=== PATIENT | female | born 1930 | race Caucasian/White ===

== ENCOUNTER 2016-06-24 12:34 | Emergency (ER) | payer MEDICARE ==
[2016-06-24 13:50] LABS: BASO % 0.2 % (0-6); EOS % 0.7 % (0-6); GRAN % 68.2 % (47-80); HEMATOCRIT 37.5 % (35.0-47.0); HEMOGLOBIN 12.1 gm/dl (11.6-16.0); MEAN CELL VOLUME 91.5 fl (81-97); MEAN CORPUSCULAR HEMOGLOBIN 29.5 pg (27-33); MEAN CORPUSCULAR HGB CONC 32.3 g/dl (32-36); MEAN PLATELET VOLUME 11.4 fl (7.4-10.4); MONO % 9.9 % (0-9); PLATELET COUNT 125 K/uL (130-400); RED CELL DISTRIBUTION WIDTH 14.3 % (11.5-14.5); WHITE BLOOD COUNT W/O DIFF 5.4 K/uL (4.2-12.2)
[2016-06-24 14:02] LABS: ANION GAP 15.5 (7-16); BLOOD UREA NITROGEN 15 mg/dL (7-17); CARBON DIOXIDE 28.5 mmol/L (22-30); CREATININE 0.7 mg/dL (0.52-1.04); EST GLOMERULAR FILTRATION RATE > 60 ml/min; GLUCOSE,RANDOM 124 mg/dL (70-110)
[2016-06-24 16:01] LABS: URINE APPEARANCE SL CLOUDY; URINE BILIRUBIN NEGATIVE (NEGATIVE); URINE BLOOD NEGATIVE (NEGATIVE); URINE COLOR YELLOW; URINE GLUCOSE (UA) NEGATIVE (NEGATIVE); URINE KETONE NEGATIVE (NEGATIVE); URINE LEUKOCYTE ESTERASE MODERATE (NEGATIVE); URINE NITRITE NEGATIVE (NEGATIVE); URINE PROTEIN NEGATIVE (NEGATIVE); URINE UROBILINOGEN 0.2 E.U./dL (0.20 - 1.00)
[2016-06-24 16:04] LABS: URINE BACTERIA 2+; URINE RBC 0 - 2 (NONE SEEN); URINE TRANSITIONAL EPI CELLS 0 - 2 /hpf; URINE WBC 21 - 35 (0-2/hpf)
--- NOTE | 2016-06-24 16:47 | Emergency Department Record ---
History of Present Illness - General Chief Complaint: Hallucinations Stated Complaint: NOT FEELING WELL Time Seen by Provider: 06/24/16 14:01 Source: Patient, Family Mode of Arrival: Ambulatory Limitations: No limitations Travel/Exposure to [place] Within 21 Days of Symptoms: No - History of Present Illness Initial Comments: pt has been hallucinating. she does this when she has a uti in the past. Complaint: Altered mental status Onset/Timin -: Days(s) Associated Psychiatric Symptoms: Visual hallucinations Quality: Intermittent Associated Symptoms: Nausea Treatments Prior to Arrival: None - Randal Coma Scale Eye Response: (4) Open spontaneously Motor Response: (6) Obeys commands Verbal Response: (4) Confused conversation Randal Total: 14 - Related Data Home Medications Medication Instructions Recorded Confirmed Last Taken Metformin HCl [Glucophage Ir] 500 mg PO BID 12/14/13 06/24/16 1 Day Ago Memantine HCl [Namenda] 5 mg PO BID 09/29/15 06/24/16 1 Day Ago Lorazepam [Ativan] 0.5 mg PO Q8H 12/03/15 06/24/16 1 Day Ago Acetaminophen with Codeine 1 tab PO Q4H PRN 03/18/16 06/24/16 1 Day Ago [Tylenol #3] Clonidine [Catapres-Tts 1] 1 each TD WEEKLY 03/18/16 06/24/16 1 Day Ago Meloxicam [Mobic] 15 mg PO DAILY 03/18/16 06/24/16 1 Day Ago Isosorbide Mononitrate [Imdur] 30 mg PO DAILY 06/24/16 06/24/16 1 Day Ago Omeprazole [Omeprazole] 10 mg PO DAILY 06/24/16 06/24/16 1 Day Ago Simvastatin [Simvastatin] 40 mg PO DAILY 06/24/16 06/24/16 1 Day Ago Previous Rx's Medication Instructions Recorded Lisinopril [Zestril] 20 mg PO DAILY #30 tab 12/04/15 Ciprofloxacin HCl [Cipro] 500 mg PO Q12HR #14 tablet 06/24/16 Allergies Allergy/AdvReac Type Severity Reaction Status Date / Time No Known Drug Allergies Allergy Verified 06/24/16 12:49 Review of Systems Reviewed: No additional complaints except as noted below Constitutional: Reports: As per HPI. Denies: Chills, Fever, Malaise, Night sweats, Weakness, Weight change Eyes: Reports: As per HPI. Denies: Eye discharge, Eye pain, Photophobia, Vision change ENT: Reports: As per HPI. Denies: Congestion, Dental pain, Ear pain, Epistaxis , Hearing loss, Throat pain Respiratory: Reports: As per HPI. Denies: Cough, Dyspnea, Hemoptysis, Stridor, Wheezes Cardiovascular: Reports: As per HPI. Denies: Arrhythmia, Chest pain, Dyspnea on exertion, Edema, Murmurs, Orthopnea, Palpitations, Paroxysmal nocturnal dyspnea, Rheumatic Fever, Syncope Endocrine: Reports: As per HPI. Denies: Fatigue, Heat or cold intolerance, Polydipsia, Polyuria Gastrointestinal: Reports: As per HPI. Denies: Abdominal pain, Constipation, Diarrhea, Hematemesis, Hematochezia, Melena, Nausea, Vomiting Genitourinary: Reports: As per HPI. Denies: Abnormal menses, Discharge, Dyspareunia, Dysuria, Frequency, Hematuria, Incontinence, Retention, Urgency Musculoskeletal: Reports: As per HPI. Denies: Arthralgia, Back pain, Gout, Joint swelling, Myalgia, Neck pain Skin: Reports: As per HPI. Denies: Bruising, Change in color, Change in hair/ nails, Lesions, Pruritus, Rash Neurological: Reports: As per HPI. Denies: Abnormal gait, Confusion, Headache, Numbness, Paresthesias, Seizure, Tingling, Tremors, Vertigo, Weakness Psychiatric: Reports: As per HPI. Denies: Anxiety, Auditory hallucinations, Depression, Homicidal thoughts, Suicidal thoughts, Visual hallucinations Hematological/Lymphatic: Reports: As per HPI. Denies: Anemia, Blood Clots, Easy bleeding, Easy bruising, Swollen glands Past Medical History - SOCIAL HISTORY Smoking Status: Former smoker Alcohol Use: None Drug Use: None - RESPIRATORY Hx Respiratory Disorders: No - CARDIOVASCULAR Hx Cardio Disorders: Yes Hx Hypertension: Yes Comment:: HYPERLIPIDEMIA - NEURO Hx Neuro Disorders: Yes Hx Dementia: Yes - GI Hx GI Disorders: Yes Hx GI Bleed: Yes - Hx Genitourinary Disorders: Yes Hx UTI: Yes - ENDOCRINE Hx Endocrine Disorders: Yes Hx Diabetes: Yes (NIDDM) Hx Thyroid Disease: No - MUSCULOSKELETAL Hx Musculoskeletal Disorders: Yes Hx Arthritis: Yes - PSYCH Hx Psych Problems: Yes Hx Anxiety: Yes - HEMATOLOGY/ONCOLOGY Hx Hematology/Oncology Disorders: No Family Medical History Any Significant Family History?: Yes Hx Cancer: Mother, Brother/Sister Physical Exam - General General Appearance: Alert, Cooperative, Mild distress - Head Head exam: Normal inspection - Eye Eye exam: Normal appearance, PERRL, EOMI Pupils: Normal accommodation - ENT ENT exam: Normal exam, Mucous membranes moist, Normal external ear exam, Normal orophraynx, TM's normal bilaterally Ear exam: Normal external inspection. negative: External canal tenderness Nasal Exam: Normal inspection. negative: Discharge, Sinus tenderness Mouth exam: Normal external inspection, Tongue normal Teeth exam: Normal inspection. negative: Dental caries Throat exam: Normal inspection. negative: Tonsillar erythema, Tonsillar exudate - Neck Neck exam: Normal inspection, Full ROM. negative: Tenderness - Respiratory Respiratory exam: Normal lung sounds bilaterally. negative: Respiratory distress - Cardiovascular Cardiovascular Exam: Regular rate, Normal rhythm, Normal heart sounds - GI/Abdominal GI/Abdominal exam: Soft, Normal bowel sounds. negative: Tenderness - Rectal Rectal exam: Deferred - exam: Deferred - Extremities Extremities exam: Normal inspection, Full ROM, Normal capillary refill. negative: Tenderness - Back Back exam: Reports: Normal inspection, Full ROM. Denies: Muscle spasm, Rash noted, Tenderness - Neurological Neurological exam: Alert, CN II-XII intact, Normal gait, Other (active hallucinating at times) - Psychiatric Psychiatric exam: Normal affect, Normal mood - Skin Skin exam: Dry, Intact, Normal color, Warm Course Vital Signs 06/24/16 06/24/16 06/24/16 12:58 14:45 15:59 Temperature 97.9 F Pulse Rate 77 Pulse Rate [ 74 95 H Pulse Ox Probe] Respiratory 15 15 15 Rate Blood Pressure 164/103 Blood Pressure 135/75 168/70 [Right Arm] Pulse Ox 94 L 95 Medical Decision Making - Lab Data Result diagrams: 06/24/16 13:20 06/24/16 13:20 Lab Results 06/24/16 06/24/16 06/24/16 Range/Units 13:20 13:20 15:37 WBC 5.4 (4.2-12.2) K/uL RBC 4.10 (3.80-5.40) M/uL Hgb 12.1 (11.6-16.0) gm/dl Hct 37.5 (35.0-47.0) % MCV 91.5 (81-97) fl MCH 29.5 (27-33) pg MCHC 32.3 (32-36) g/dl RDW 14.3 (11.5-14.5) % Plt Count 125 L (130-400) K/uL MPV 11.4 H (7.4-10.4) fl Gran % 68.2 (47-80) % Lymphocytes % 21.0 (16-45) % Monocytes % 9.9 H (0-9) % Eosinophils % 0.7 (0-6) % Basophils % 0.2 (0-6) % Sodium 141 (136-145) mmol/L Potassium 3.9 (3.5-5.1) mmol/L Chloride 97 L (98-107) mmol/L Carbon Dioxide 28.5 (22-30) mmol/L Anion Gap 15.5 (7-16) BUN 15 (7-17) mg/dL Creatinine 0.7 (0.52-1.04) mg/dL Estimated GFR > 60 ml/min Random Glucose 124 H (70-110) mg/dL Calcium 9.7 (8.5-10.1) mg/dL Urine Color Yellow Urine Appearance Sl cloudy Urine pH 6.5 (5.0-8.0) Ur Specific [place] 1.010 (1.002-1.030) Urine Protein Negative (NEGATIVE) Urine Glucose (UA) Negative (NEGATIVE) Urine Ketones Negative (NEGATIVE) Urine Blood Negative (NEGATIVE) Urine Nitrite Negative (NEGATIVE) Urine Bilirubin Negative (NEGATIVE) Urine Urobilinogen 0.2 (0.20 - 1.00) E.U./dL Ur Leukocyte Esterase Moderate H (NEGATIVE) Urine RBC 0 - 2 (NONE SEEN) Urine WBC 21 - 35 (0-2/hpf) U Non-Squamous Epi Cells 7 - 10 /hpf Ur Transition Epith Cell 0 - 2 /hpf Urine Bacteria 2+ Disposition Disposition: Discharge Clinical Impression: Hallucinations UTI (urinary tract infection) Qualifiers: Urinary tract infection type: acute cystitis Hematuria presence: without hematuria Qualified Code(s): N30.00 - Acute cystitis without hematuria Disposition: Home, Self-Care Condition: (1) Good Instructions: Urinary Tract Infection in Women (ED) Additional Instructions: follow up with family doctor on sunday. return sooner if worse. Prescriptions: Ciprofloxacin HCl [Cipro] 500 mg PO Q12HR #14 tablet Forms: Patient Portal Access
[2016-06-24] MEDS ORDERED: CIPROFLOXACIN HCL 500 MG TABLET PO ONE (16:50)
== END 2016-06-24 17:07 | disposition home or self-care (01) ==
LOC: ER 12:34
DX: N30.00 Acute cystitis without hematuria (principal); R44.1 Visual hallucinations; E11.9 Type 2 diabetes mellitus without complications; I10 Essential (primary) hypertension; Z79.84 Long term (current) use of oral hypoglycemic drugs
CPT/HCPCS: 80048; 81001; 85025; 99283

== ENCOUNTER 2016-08-26 05:30 | Emergency (ER) | payer MEDICARE ==
--- NOTE | 2016-08-26 05:51 | Emergency Department Record ---
History of Present Illness - General Chief Complaint: Fall Injury Stated Complaint: fall Time Seen by Provider: 08/26/16 05:43 Source: Patient, Family Mode of Arrival: Wheelchair - History of Present Illness Initial Comments: The patient's family caregiver states she was getting up to the bedside commode when she fell off to the side, hitting her head on the metal furniture next to her. She complains of a large lump on her left posterior scalp, but has no other complaints. She has been unable to urinate more than a few drops the past day or so. Her friend began to give her more fluids but she still has not urinated normally. She denies f,c,n,v,d,cp, travon, ap, or other problems. PMH includes dementia, UTI, hypertension. MD Complaint: Fall Onset/Timin -: Hour(s) Fall From: Chair When Fall Occurred: 1 hour AUT[employer] APPR[employer]IS[employer] Fall Witnessed: No Place Fall Occurred: Home Loss of Consciousness: None Prolonged Down Time?: No Symptoms Prior to Fall: None Location: Head Severity: Mild Severity scale (1-10): 2 Quality: Aching Associated Symptoms: Denies - Randal Coma Scale Eye Response: (4) Open spontaneously Motor Response: (6) Obeys commands Verbal Response: (5) Oriented [place] Total: 15 - Related Data Home Medications Medication Instructions Recorded Confirmed Last Taken Metformin HCl [Glucophage Ir] 500 mg PO BID 12/14/13 08/26/16 08/25/16 Memantine HCl [Namenda] 5 mg PO BID 09/29/15 08/26/16 08/25/16 Lorazepam [Ativan] 0.5 mg PO Q8H 12/03/15 08/26/16 08/25/16 Acetaminophen with Codeine 1 tab PO Q4H PRN 03/18/16 08/26/16 08/25/16 [Tylenol #3] Clonidine [Catapres-Tts 1] 1 each TD WEEKLY 03/18/16 08/26/16 08/25/16 Meloxicam [Mobic] 15 mg PO DAILY 03/18/16 08/26/16 08/25/16 Isosorbide Mononitrate [Imdur] 30 mg PO DAILY 06/24/16 08/26/16 08/25/16 Omeprazole [Omeprazole] 10 mg PO DAILY 06/24/16 08/26/16 08/25/16 Simvastatin [Simvastatin] 40 mg PO DAILY 06/24/16 08/26/16 08/25/16 Previous Rx's Medication Instructions Recorded Lisinopril [Zestril] 20 mg PO DAILY #30 tab 12/04/15 Ciprofloxacin HCl [Cipro] 500 mg PO Q12HR #14 tablet 06/24/16 Allergies Allergy/AdvReac Type Severity Reaction Status Date / Time No Known Drug Allergies Allergy Verified 08/26/16 05:32 Travel Screening - Travel/Exposure Within Last 30 Days Have you traveled within the last 30 days?: No - Travel/Exposure Within Last Year Have you traveled outside the [place] in the last year?: No - Additonal Travel Details Have you been exposed to anyone with a communicable illness?: No - Travel Symptoms Symptom Screening: None Review of Systems Reviewed: No additional complaints except as noted below Constitutional: Reports: As per HPI. Denies: Chills, Fever, Malaise, Night sweats, Weakness, Weight change Eyes: Reports: As per HPI. Denies: Eye discharge, Eye pain, Photophobia, Vision change ENT: Reports: As per HPI. Denies: Congestion, Dental pain, Ear pain, Epistaxis , Hearing loss, Throat pain Respiratory: Reports: As per HPI. Denies: Cough, Dyspnea, Hemoptysis, Stridor, Wheezes Cardiovascular: Reports: As per HPI. Denies: Arrhythmia, Chest pain, Dyspnea on exertion, Edema, Murmurs, Orthopnea, Palpitations, Paroxysmal nocturnal dyspnea, Rheumatic Fever, Syncope Endocrine: Reports: As per HPI. Denies: Fatigue, Heat or cold intolerance, Polydipsia, Polyuria Gastrointestinal: Reports: As per HPI. Denies: Abdominal pain, Constipation, Diarrhea, Hematemesis, Hematochezia, Melena, Nausea, Vomiting Genitourinary: Reports: As per HPI. Denies: Abnormal menses, Discharge, Dyspareunia, Dysuria, Frequency, Hematuria, Incontinence, Retention, Urgency Musculoskeletal: Reports: As per HPI. Denies: Arthralgia, Back pain, Gout, Joint swelling, Myalgia, Neck pain Skin: Reports: As per HPI. Denies: Bruising, Change in color, Change in hair/ nails, Lesions, Pruritus, Rash Neurological: Reports: As per HPI. Denies: Abnormal gait, Confusion, Headache, Numbness, Paresthesias, Seizure, Tingling, Tremors, Vertigo, Weakness Psychiatric: Reports: As per HPI. Denies: Anxiety, Auditory hallucinations, Depression, Homicidal thoughts, Suicidal thoughts, Visual hallucinations Hematological/Lymphatic: Reports: As per HPI. Denies: Anemia, Blood Clots, Easy bleeding, Easy bruising, Swollen glands Past Medical History - SOCIAL HISTORY Smoking Status: Former smoker Alcohol Use: None Drug Use: None - RESPIRATORY Hx Respiratory Disorders: No - CARDIOVASCULAR Hx Cardio Disorders: Yes Hx Hypertension: Yes Comment:: HYPERLIPIDEMIA - NEURO Hx Neuro Disorders: Yes Hx Dementia: Yes - GI Hx GI Disorders: Yes Hx GI Bleed: Yes - Hx Genitourinary Disorders: Yes Hx UTI: Yes - ENDOCRINE Hx Endocrine Disorders: Yes Hx Diabetes: Yes (NIDDM) Hx Thyroid Disease: No - MUSCULOSKELETAL Hx Musculoskeletal Disorders: Yes Hx Arthritis: Yes - PSYCH Hx Psych Problems: Yes Hx Anxiety: Yes - HEMATOLOGY/ONCOLOGY Hx Hematology/Oncology Disorders: No Family Medical History Any Significant Family History?: No Hx Cancer: Mother, Brother/Sister Physical Exam - General General Appearance: Alert, Cooperative, No acute distress - Head Head exam: Normal inspection, Other (large hematoma to left posterior scalp, no bleeding seen) Head exam detail: Contusion (scalp as mentioned) - Eye Eye exam: Normal appearance, PERRL, EOMI Pupils: Normal accommodation - ENT ENT exam: Normal exam, Mucous membranes moist, Normal external ear exam, Normal orophraynx, TM's normal bilaterally Ear exam: Normal external inspection. negative: External canal tenderness Nasal Exam: Normal inspection. negative: Discharge, Sinus tenderness Mouth exam: Normal external inspection, Tongue normal Teeth exam: Normal inspection, Other (edentulous). negative: Dental caries Throat exam: Normal inspection. negative: Tonsillar erythema, Tonsillar exudate - Neck Neck exam: Normal inspection, Full ROM. negative: Lymphadenopathy, Tenderness - Respiratory Respiratory exam: Normal lung sounds bilaterally. negative: Respiratory distress - Cardiovascular Cardiovascular Exam: Regular rate, Normal rhythm, Normal heart sounds - GI/Abdominal GI/Abdominal exam: Soft, Normal bowel sounds. negative: Tenderness - Rectal Rectal exam: Deferred - exam: Deferred - Extremities Extremities exam: Normal inspection, Full ROM, Normal capillary refill, Other ( no rib, chest back, pelvis, or extremity tenderness on palpation). negative: Tenderness - Back Back exam: Reports: Normal inspection, Full ROM. Denies: Muscle spasm, Rash noted, Tenderness - Neurological Neurological exam: Alert, Normal gait, Oriented X3, Reflexes normal - Psychiatric Psychiatric exam: Normal affect, Normal mood - Skin Skin exam: Dry, Intact, Normal color, Warm Course Vital Signs 08/26/16 05:32 Temperature 97.7 F Pulse Rate 70 Respiratory 16 Rate Blood Pressure 222/104 Pulse Ox 98 - Reevaluation(s) Reevaluation #1: Awaiting CT results and urine studies. Care turned over to day shift physician 7 a.m. 08/26/16 06:45 Reevaluation #2: Non-contrast head CT showed no acute intra-cranial abnormalities and mild left posterior scalp edema. CT of the Cervical spine showed No acute fracture with degenerative disc disease. 08/26/16 06:51 Medical Decision Making - Management Options MDM Management: No Additional Work-up Planned - Data Complexity MDM Data: Labs Ordered and/or Reviewed, X-Ray Ordered and/or Reviewed ( Noncontrast Head and Cervical Spine CT's all without acute changes.) - Lab Data Result diagrams: 08/26/16 05:59 08/26/16 05:59 Disposition Disposition: Discharge Clinical Impression: Head contusion Qualifiers: Encounter type: initial encounter Contusion of head detail: scalp Qualified Code(s): S00.03XA - Contusion of scalp, initial encounter Fall Qualifiers: Encounter type: initial encounter Qualified Code(s): W19.XXXA - Unspecified fall, initial encounter Dementia Qualifiers: Dementia type: unspecified type Dementia behavioral disturbance: without behavioral disturbance Qualified Code(s): F03.90 - Unspecified dementia without behavioral disturbance Disposition: Home, Self-Care Condition: (1) Good Instructions: Fall Prevention for Older Adults (ED) Additional Instructions: Home with caregivers. Continue present medications. Ice to contusion. Tylenol as directed as needed for pain. Follow up with PCP for recheck as needed. Close assistance when patient is attempting ambulation. Forms: Patient Portal Access
[2016-08-26] MEDS ORDERED: 0.9 % SODIUM CHLORIDE 500ML 500 ML IV SCH (06:00)
[2016-08-26 06:08] LABS: BASO % 0.7 % (0-6); EOS % 3.1 % (0-6); HEMATOCRIT 35.2 % (35.0-47.0); HEMOGLOBIN 10.8 gm/dl (11.6-16.0); LYMPH % 43.2 % (16-45); MEAN CELL VOLUME 94.1 fl (81-97); MEAN CORPUSCULAR HGB CONC 30.7 g/dl (32-36); MEAN PLATELET VOLUME 10.9 fl (7.4-10.4); PLATELET COUNT 124 K/uL (130-400); RED BLOOD COUNT 3.74 M/uL (3.80-5.40); RED CELL DISTRIBUTION WIDTH 13.7 % (11.5-14.5); WHITE BLOOD COUNT W/O DIFF 4.3 K/uL (4.2-12.2)
[2016-08-26 06:12] LABS: MEAN CORPUSCULAR HEMOGLOBIN 28.8 pg (27-33)
[2016-08-26 06:21] LABS: INR 0.95; PARTIAL THROMBOPLASTIN TIME 24.1 SECONDS (24.5-39.1); PROTHROMBIN TIME (PATIENT) 10.7 SECONDS (9.5-12.1)
[2016-08-26 06:22] LABS: AMMONIA < 8.7 umol/L (9-30)
[2016-08-26 06:23] LABS: ALBUMIN 3.9 gm/dL (3.5-5.0); BLOOD UREA NITROGEN 16 mg/dL (7-17); CREATININE 0.7 mg/dL (0.52-1.04); EST GLOMERULAR FILTRATION RATE > 60 ml/min; GLUCOSE,RANDOM 105 mg/dL (70-110); TOTAL PROTEIN 6.4 gm/dL (6.3-8.2)
[2016-08-26 06:24] LABS: ALKALINE PHOSPHATASE 69 U/L (38-126); ALT/SGPT 20 U/L (9-52); AST/SGOT 16 U/L (14-36)
[2016-08-26 06:50] LABS: URINE APPEARANCE CLEAR; URINE BILIRUBIN NEGATIVE (NEGATIVE); URINE BLOOD NEGATIVE (NEGATIVE); URINE COLOR YELLOW; URINE GLUCOSE (UA) NEGATIVE (NEGATIVE); URINE KETONE NEGATIVE (NEGATIVE); URINE LEUKOCYTE ESTERASE NEGATIVE (NEGATIVE); URINE NITRITE NEGATIVE (NEGATIVE); URINE PROTEIN NEGATIVE (NEGATIVE); URINE UROBILINOGEN 0.2 E.U./dL (0.20 - 1.00)
[2016-08-26 06:55] LABS: AMPHETAMINE SCREEN URINE NOT DETECTED; BARBITURATE SCREEN URINE NOT DETECTED; BENZODIAZEPINE SCREEN URINE DETECTED; COCAINE SCREEN URINE NOT DETECTED; METHADONE SCREEN URINE NOT DETECTED; METHAMPHETAMINE SCREEN NOT DETECTED; OPIATE SCREEN URINE NOT DETECTED; OXYCODONE SCREEN URINE NOT DETECTED; PHENCYCLIDINE SCREEN URINE NOT DETECTED; PROPOXYPHENE SCREEN URINE NOT DETECTED; THC SCREEN URINE NOT DETECTED; TRICYCLIC ANTIDEPRESSANT SCRN NOT DETECTED
--- NOTE | 2016-08-30 09:34 | RADIOLOGY REPORT ---
EXAM: CHEST, TWO VIEWS HISTORY: FALL, WEAKNESS. TECHNIQUE: Two views of the chest were obtained. Comparison: Chest x-ray 03/18/16. FINDINGS: Compromised study due to patient rotation. The lungs are clear. The cardiac silhouette and diaphragm are unremarkable. Moderate dextroconvex scoliosis of the thoracic spine. Diffuse osteopenia. No displaced rib fracture. IMPRESSION: NO ACUTE INTRATHORACIC PROCESS. JOB NUMBER: [id number] [facility]
--- NOTE | 2016-08-30 09:47 | CT SCAN REPORT ---
EXAM: HEAD CT WITHOUT CONTRAST HISTORY: FALL, BLUNT TRAUMA TO HEAD, NO LOSS OF CONSCIOUSNESS. TECHNIQUE: Noncontrast head CT was obtained. Comparison: Head CT 12/03/15. Encounter: Initial. Hand dominance: Right. FINDINGS: Mild generalized atrophy of the brain. No acute intracranial hemorrhage, mass effect, or midline shift. Moderate diffuse attenuation in the periventricular white matter of the cerebral hemispheres. No CT evidence of acute infarct. The ventricles, basal cisterns and sulci are within normal limits. The osseous structures are unremarkable. Bilateral lens implants. Soft tissue swelling left parietal occipital scalp. IMPRESSION: 1. NO ACUTE INTRACRANIAL PROCESS. 2. LEFT PARIETAL OCCIPITAL SCALP CONTUSION. 3. MODERATE CHRONIC SMALL VESSEL ISCHEMIC CHANGE. JOB NUMBER: [id number] [facility]
--- NOTE | 2016-08-30 09:52 | CT SCAN REPORT ---
EXAM: CERVICAL SPINE CT WITH TWO DIMENSIONAL REFORMATS HISTORY: FALL, HIT POSTERIOR HEAD, NECK PAIN. TECHNIQUE: Contiguous axial images from the skull base to the T1 level were obtained without contrast. Sagittal and coronal two dimensional reformatted images were obtained for better anatomic delineation. Comparison: None. FINDINGS: The C1-C2 articulation appears appropriate and the odontoid process is intact. No fracture. 2 mm of anterolisthesis of C5 upon C6 due to severe facet arthropathy. Mild to moderate degenerative disk disease at C5-C6 and C6- C7. Minimal disk disease at the remaining levels. No narrowing of the osseous central canal. Facet and uncovertebral joint hypertrophy at several levels resulting in varying degrees of neural foraminal stenosis most pronounced at C2- C3 on the left. The soft tissues of the cervical region are unremarkable. The lung apices are clear. IMPRESSION: 1. MULTILEVEL DEGENERATIVE CHANGE OF THE CERVICAL SPINE. NO ACUTE FRACTURE IDENTIFIED. 2. 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 3. 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 [facility]: [id number] [facility]
== END 2016-08-26 06:59 | disposition home or self-care (01) ==
LOC: ER 05:30
DX: S00.03XA Contusion of scalp, initial encounter (principal); M50.30 Other cervical disc degeneration, unspecified cervical region; R34 Anuria and oliguria; E11.9 Type 2 diabetes mellitus without complications; I10 Essential (primary) hypertension; F03.90 Unspecified dementia, unspecified severity, without behavioral disturbance, psychotic disturbance, mood disturbance, and anxiety; Y92.003 Bedroom of unspecified non-institutional (private) residence as the place of occurrence of the external cause; Z87.891 Personal history of nicotine dependence; Z79.899 Other long term (current) drug therapy
CPT/HCPCS: 70450; 71020; 72125; 80048; 80076; 80305; 81003; 82140; 85025; 85610; 85730; 99284; J7040

== ENCOUNTER 2016-11-28 16:46 | Inpatient (IN) | payer MEDICARE ==
--- NOTE | 2016-11-28 17:35 | Emergency Department Record ---
History of Present Illness - General Source: Patient, Family Mode of Arrival: Wheelchair Limitations: Other (dementia) - History of Present Illness Initial Comments: 86 yo female presents with family due to increasing confusion for a few days. She has a long history of progressive dementia. She is normally confused at her baseline. The last few days she has woken up in the night time and will talk with the family asking for relatives that are not present. Intermittently she will have conversations about family that not around or . No falls or injury. No slurred speech or changes in physical abilities. No pain that is new (she has arthritis). NO new weakness. No vision changes. She lives with her brother and sister in law. They are her caretakers MD Complaint: Confusion -: Unknown Consistency: Intermittent Associated Symptoms: Other - [place] Coma Scale Eye Response: (4) Open spontaneously Motor Response: (6) Obeys commands Verbal Response: (4) Confused conversation [place] Total: 14 <SARA MARQUEZ - Last Filed: 11/28/16 18:45> <STEPHON SNELL - Last Filed: 11/28/16 19:59> - General Chief Complaint: Confusion Stated Complaint: CONFUSION Time Seen by Provider: 11/28/16 17:33 - Related Data Home Medications Medication Instructions Recorded Confirmed Last Taken Metformin HCl [Glucophage Ir] 500 mg PO BID 12/14/13 11/28/16 11/28/16 Memantine HCl [Namenda] 5 mg PO BID 09/29/15 11/28/16 11/28/16 Lorazepam [Ativan] 0.5 mg PO Q8H 12/03/15 11/28/16 11/28/16 Acetaminop W/ Codeine 300/30Mg 1 tab PO Q4H PRN 03/18/16 11/28/16 11/28/16 [Tylenol #3] Clonidine [Catapres-Tts 1] 1 each TD WEEKLY 03/18/16 11/28/16 11/28/16 Meloxicam [Mobic] 15 mg PO DAILY 03/18/16 11/28/16 11/28/16 Isosorbide Mononitrate [Imdur] 30 mg PO DAILY 06/24/16 11/28/16 11/28/16 Omeprazole [Omeprazole] 10 mg PO DAILY 06/24/16 11/28/16 11/28/16 Simvastatin [Simvastatin] 40 mg PO DAILY 06/24/16 11/28/16 11/28/16 Previous Rx's Medication Instructions Recorded Lisinopril [Zestril] 20 mg PO DAILY #30 tab 12/04/15 Allergies Allergy/AdvReac Type Severity Reaction Status Date / Time No Known Drug Allergies Allergy Verified 11/28/16 17:02 Travel Screening - Travel/Exposure Within Last 30 Days Have you traveled within the last 30 days?: No <SARA MARQUEZ - Last Filed: 11/28/16 18:45> Review of Systems Constitutional: Denies: Chills, Fever, Malaise, Weakness Eyes: Denies: Eye pain, Vision change ENT: Reports: Ear pain. Denies: Congestion, Dental pain, Throat pain Respiratory: Denies: Cough, Dyspnea, Hemoptysis, Stridor, Wheezes Cardiovascular: Denies: Chest pain, Palpitations, Syncope Endocrine: Denies: Fatigue, Polydipsia, Polyuria Gastrointestinal: Denies: Abdominal pain, Diarrhea, Nausea, Vomiting Genitourinary: Denies: Dysuria, Urgency Musculoskeletal: Reports: Arthralgia (chronic arthritis) Skin: Denies: Bruising, Change in color, Rash Neurological: Reports: Confusion (chronic dementia). Denies: Headache, Numbness , Weakness Psychiatric: Denies: Anxiety Hematological/Lymphatic: Denies: Blood Clots, Easy bleeding, Easy bruising, Swollen glands <SARA MARQUEZ - Last Filed: 11/28/16 18:45> Past Medical History - SOCIAL HISTORY Smoking Status: Former smoker Alcohol Use: None Drug Use: None - RESPIRATORY Hx Respiratory Disorders: No - CARDIOVASCULAR Hx Cardio Disorders: Yes Hx Hypertension: Yes Comment:: HYPERLIPIDEMIA - NEURO Hx Neuro Disorders: Yes Hx Dementia: Yes - GI Hx GI Disorders: Yes Hx GI Bleed: Yes - Hx Genitourinary Disorders: Yes Hx UTI: Yes - ENDOCRINE Hx Endocrine Disorders: Yes Hx Diabetes: Yes (NIDDM) Hx Thyroid Disease: No - MUSCULOSKELETAL Hx Musculoskeletal Disorders: Yes Hx Arthritis: Yes - PSYCH Hx Psych Problems: Yes Hx Anxiety: Yes Hx Depression: Yes - HEMATOLOGY/ONCOLOGY Hx Hematology/Oncology Disorders: No <SARA MARQUEZ - Last Filed: 11/28/16 18:45> Family Medical History Any Significant Family History?: Yes Hx Cancer: Mother, Brother/Sister <SARA MARQUEZ - Last Filed: 11/28/16 18:45> Physical Exam - General General Appearance: Alert, Cooperative, No acute distress, Other (Calm, answers questions, knows her name and family, this hospital. No hallucinations ) Limitations: No limitations - Head Head exam: Atraumatic, Normocephalic, Normal inspection - Eye Eye exam: Normal appearance, PERRL. negative: Conjunctival injection, Periorbital swelling - ENT ENT exam: Normal exam, Mucous membranes moist Ear exam: Normal external inspection Nasal Exam: Normal inspection Mouth exam: Normal external inspection Teeth exam: Normal inspection Throat exam: Normal inspection - Neck Neck exam: Normal inspection, Full ROM. negative: Tenderness - Respiratory Respiratory exam: Normal lung sounds bilaterally. negative: Respiratory distress - Cardiovascular Cardiovascular Exam: Regular rate, Normal rhythm, Normal heart sounds Peripheral Pulses: 2+: Radial (R), Radial (L) - GI/Abdominal GI/Abdominal exam: Soft. negative: Hypoactive bowel sounds - Rectal Rectal exam: Deferred - exam: Deferred - Extremities Extremities exam: Normal inspection, Full ROM, Normal capillary refill. negative: Pedal edema, Tenderness - Back Back exam: Reports: Normal inspection, Full ROM. Denies: CVA tenderness (R), CVA tenderness (L), Muscle spasm, Rash noted, Tenderness - Neurological Neurological exam: Alert, CN II-XII intact, Normal gait. negative: Motor sensory deficit, Oriented X3 (alert, oriented to name and conversion) - Psychiatric Psychiatric exam: Normal affect, Normal mood. negative: Agitated, Anxious, Depressed, Flat affect, Manic - Skin Skin exam: Dry, Intact, Normal color, Warm <SARA MARQUEZ - Last Filed: 11/28/16 18:45> Course Vital Signs 11/28/16 16:53 Temperature 99.3 F Pulse Rate 96 H Respiratory 20 Rate Blood Pressure 207/101 Pulse Ox 94 L - Reevaluation(s) Reevaluation #1: No acute changes on the CBC or UA 11/28/16 18:01 Reevaluation #2: The labs were reviewed She has chronic anemia with a Hgb of 10, and chronic thrombocytopenia at 120 No acute changes on the CMP The UA was reviewed. No acute changes. Head CT is pending and TSH 11/28/16 18:19 Reevaluation #3: The patient has lived with the brother for about 9 months. Her dementia has progressed over that time. His health and his 's health have declined. The request social work to consults on resources for them regarding care for the patient or jail options/assistance 11/28/16 18:27 Reevaluation #4: The HCT was reviewed No acute changes. No signs of stroke, mass, or bleed. Stable atrophy BP medications given 11/28/16 18:45 <SARA MARQUEZ - Last Filed: 11/28/16 18:45> Vital Signs 11/28/16 11/28/16 11/28/16 16:53 17:56 18:43 Temperature 99.3 F 98.6 F Pulse Rate 96 H Pulse Rate [ 74 Pulse Ox Probe] Respiratory 20 18 Rate Blood Pressure 207/101 Blood Pressure 198/94 219/105 [Left Arm] Pulse Ox 94 L 95 11/28/16 19:14 Temperature Pulse Rate Pulse Rate [ 67 Pulse Ox Probe] Respiratory 16 Rate Blood Pressure Blood Pressure 179/93 [Left Arm] Pulse Ox 95 - Reevaluation(s) Reevaluation #5: 11/28/16 19:29 Assumed care waiting for BP to come down. Work up wnl per Dr. Marquez. The patient needed two staff to get to the bathroom and back as she is not able to ambulate. Family reports that this is new in the past few days. They state they are unable to care for her and need jail placement. 11/28/16 19:59 <STEPHON SNELL - Last Filed: 11/28/16 19:59> Medical Decision Making - Lab Data Result diagrams: 11/28/16 17:30 11/28/16 17:30 <SARA MARQUEZ - Last Filed: 11/28/16 18:45> - Data Complexity MDM Data: Labs Ordered and/or Reviewed, X-Ray Ordered and/or Reviewed ( Noncontrast head CT: Stable atrophy with SVID, no acute abnormality.) - Lab Data Result diagrams: 11/28/16 17:30 11/28/16 17:30 Lab Results 11/28/16 11/28/16 11/28/16 Range/Units 17:30 17:30 17:30 WBC 7.9 (4.2-12.2) K/uL RBC 3.50 L (3.80-5.40) M/uL Hgb 10.4 L (11.6-16.0) gm/dl Hct 32.2 L (35.0-47.0) % MCV 92.0 (81-97) fl MCH 29.7 (27-33) pg MCHC 32.3 (32-36) g/dl RDW 13.2 (11.5-14.5) % Plt Count 120 L (130-400) K/uL MPV 10.1 (7.4-10.4) fl Gran % 76.3 (47-80) % Lymphocytes % 16.9 (16-45) % Monocytes % 6.1 (0-9) % Eosinophils % 0.6 (0-6) % Basophils % 0.1 (0-6) % Sodium 135 L (136-145) mmol/L Potassium 4.2 (3.5-5.1) mmol/L Chloride 98 (98-107) mmol/L Carbon Dioxide 27.5 (22-30) mmol/L Anion Gap 9.5 (7-16) BUN 10 (7-17) mg/dL Creatinine 0.7 (0.52-1.04) mg/dL Estimated GFR > 60 ml/min Random Glucose 99 (70-110) mg/dL Calcium 8.9 (8.5-10.1) mg/dL Magnesium 1.3 L (1.6-2.3) mg/dL Total Bilirubin 0.77 (0.2-1.3) mg/dL AST 20 (14-36) U/L ALT 18 (9-52) U/L Alkaline Phosphatase 83 (38-126) U/L Total Protein 6.6 (6.3-8.2) gm/dL Albumin 4.0 (3.5-5.0) gm/dL Globulin 2.6 (1.4-4.8) gm/dL Albumin/Globulin Ratio 1.5 (1.1-1.8) TSH 3.21 (0.465-4.68) uIU/ml Urine Color Yellow Urine Appearance Clear Urine pH 6.0 (5.0-8.0) Ur Specific [place] <= 1.005 (1.002-1.030) Urine Protein Negative (NEGATIVE) Urine Glucose (UA) Negative (NEGATIVE) Urine Ketones Negative (NEGATIVE) Urine Blood Negative (NEGATIVE) Urine Nitrite Negative (NEGATIVE) Urine Bilirubin Negative (NEGATIVE) Urine Urobilinogen 0.2 (0.20 - 1.00) E.U./dL Ur Leukocyte Esterase Negative (NEGATIVE) <STEPHON SNELL - Last Filed: 11/28/16 19:59> Disposition <SARA MARQUEZ - Last Filed: 11/28/16 18:45> Disposition: Admit Decision to Admit: Admit from ER Decision to Admit Date: 11/28/16 Decision to Admit Time: 19:41 (paged at that time) Accepting Physician: Dr. Veliz/Nessa Time Discussed w/Accepting Physician: 19:41 <STEPHON SNELL - Last Filed: 11/28/16 19:59> Clinical Impression: Neurologic ambulation disorder Dementia Qualifiers: Dementia type: unspecified type Dementia behavioral disturbance: without behavioral disturbance Qualified Code(s): F03.90 - Unspecified dementia without behavioral disturbance Hypertension Qualifiers: Hypertension type: essential hypertension Qualified Code(s): I10 - Essential ( primary) hypertension Disposition: Still a Patient at [facility] Condition: (1) Good Instructions: Dementia (ED) Referrals: Jolanta Lazo, L.M.S.W. [Educational Technology Specialist Traffic Ii Manager] - Forms: Patient Portal Access
[2016-11-28 17:52] LABS: BASO % 0.1 % (0-6); EOS % 0.6 % (0-6); GRAN % 76.3 % (47-80); HEMATOCRIT 32.2 % (35.0-47.0); HEMOGLOBIN 10.4 gm/dl (11.6-16.0); LYMPH % 16.9 % (16-45); MEAN CORPUSCULAR HEMOGLOBIN 29.7 pg (27-33); MEAN CORPUSCULAR HGB CONC 32.3 g/dl (32-36); MEAN PLATELET VOLUME 10.1 fl (7.4-10.4); MONO % 6.1 % (0-9); PLATELET COUNT 120 K/uL (130-400); RED CELL DISTRIBUTION WIDTH 13.2 % (11.5-14.5); URINE APPEARANCE CLEAR; URINE BILIRUBIN NEGATIVE (NEGATIVE); URINE BLOOD NEGATIVE (NEGATIVE); URINE COLOR YELLOW; URINE GLUCOSE (UA) NEGATIVE (NEGATIVE); URINE KETONE NEGATIVE (NEGATIVE); URINE LEUKOCYTE ESTERASE NEGATIVE (NEGATIVE); URINE NITRITE NEGATIVE (NEGATIVE); URINE PROTEIN NEGATIVE (NEGATIVE); URINE UROBILINOGEN 0.2 E.U./dL (0.20 - 1.00); WHITE BLOOD COUNT W/O DIFF 7.9 K/uL (4.2-12.2)
[2016-11-28 18:06] LABS: ALB/GLOB RATIO 1.5 (1.1-1.8); ALKALINE PHOSPHATASE 83 U/L (38-126); ALT/SGPT 18 U/L (9-52); ANION GAP 9.5 (7-16); AST/SGOT 20 U/L (14-36); BILIRUBIN,TOTAL 0.77 mg/dL (0.2-1.3); BLOOD UREA NITROGEN 10 mg/dL (7-17); CARBON DIOXIDE 27.5 mmol/L (22-30); CREATININE 0.7 mg/dL (0.52-1.04); EST GLOMERULAR FILTRATION RATE > 60 ml/min; GLUCOSE,RANDOM 99 mg/dL (70-110); TOTAL PROTEIN 6.6 gm/dL (6.3-8.2)
[2016-11-28] MEDS ORDERED: CLONIDINE HCL 0.1 MG TABLET PO ONE (18:33)
[2016-11-28] MEDS ORDERED: MAGNESIUM OXIDE 400 MG TABLET PO ONE (18:34)
[2016-11-28 18:36] LABS: THYROID STIMULATING HORMONE 3.21 uIU/ml (0.465-4.68)
[2016-11-28] MEDS ORDERED: HYDRALAZINE 20MG/ML VIAL IV ONE (18:36)
--- NOTE | 2016-11-28 20:04 | Emergency Department Record ---
History of Present Illness - General Chief Complaint: Confusion Stated Complaint: CONFUSION Time Seen by Provider: 11/28/16 17:33 Source: Patient, Family Mode of Arrival: Wheelchair Limitations: No limitations - History of Present Illness -: Unknown Consistency: Intermittent Associated Symptoms: Other - [place] Coma Scale Eye Response: (4) Open spontaneously Motor Response: (6) Obeys commands Verbal Response: (4) Confused conversation [place] Total: 14 - Related Data Home Medications Medication Instructions Recorded Confirmed Last Taken Metformin HCl [Glucophage Ir] 500 mg PO BID 12/14/13 11/28/16 11/28/16 Memantine HCl [Namenda] 5 mg PO BID 09/29/15 11/28/16 11/28/16 Lorazepam [Ativan] 0.5 mg PO Q8H 12/03/15 11/28/16 11/28/16 Acetaminop W/ Codeine 300/30Mg 1 tab PO Q4H PRN 03/18/16 11/28/16 11/28/16 [Tylenol #3] Clonidine [Catapres-Tts 1] 1 each TD WEEKLY 03/18/16 11/28/16 11/28/16 Meloxicam [Mobic] 15 mg PO DAILY 03/18/16 11/28/16 11/28/16 Isosorbide Mononitrate [Imdur] 30 mg PO DAILY 06/24/16 11/28/16 11/28/16 Omeprazole [Omeprazole] 10 mg PO DAILY 06/24/16 11/28/16 11/28/16 Simvastatin [Simvastatin] 40 mg PO DAILY 06/24/16 11/28/16 11/28/16 Previous Rx's Medication Instructions Recorded Lisinopril [Zestril] 20 mg PO DAILY #30 tab 12/04/15 Allergies Allergy/AdvReac Type Severity Reaction Status Date / Time No Known Drug Allergies Allergy Verified 11/28/16 17:02 Travel Screening - Travel/Exposure Within Last 30 Days Have you traveled within the last 30 days?: No Review of Systems Constitutional: Denies: Chills, Fever, Malaise, Weakness Eyes: Denies: Eye pain, Vision change ENT: Reports: Ear pain. Denies: Congestion, Dental pain, Throat pain Respiratory: Denies: Cough, Dyspnea, Hemoptysis, Stridor, Wheezes Cardiovascular: Denies: Chest pain, Palpitations, Syncope Endocrine: Denies: Fatigue, Polydipsia, Polyuria Gastrointestinal: Denies: Abdominal pain, Diarrhea, Nausea, Vomiting Genitourinary: Denies: Dysuria, Urgency Musculoskeletal: Reports: Arthralgia (chronic arthritis) Skin: Denies: Bruising, Change in color, Rash Neurological: Reports: Confusion (chronic dementia). Denies: Headache, Numbness , Weakness Psychiatric: Denies: Anxiety Hematological/Lymphatic: Denies: Blood Clots, Easy bleeding, Easy bruising, Swollen glands Past Medical History - SOCIAL HISTORY Smoking Status: Former smoker Alcohol Use: None Drug Use: None - RESPIRATORY Hx Respiratory Disorders: No - CARDIOVASCULAR Hx Cardio Disorders: Yes Hx Hypertension: Yes Comment:: HYPERLIPIDEMIA - NEURO Hx Neuro Disorders: Yes Hx Dementia: Yes - GI Hx GI Disorders: Yes Hx GI Bleed: Yes - Hx Genitourinary Disorders: Yes Hx UTI: Yes - ENDOCRINE Hx Endocrine Disorders: Yes Hx Diabetes: Yes (NIDDM) Hx Thyroid Disease: No - MUSCULOSKELETAL Hx Musculoskeletal Disorders: Yes Hx Arthritis: Yes - PSYCH Hx Psych Problems: Yes Hx Anxiety: Yes Hx Depression: Yes - HEMATOLOGY/ONCOLOGY Hx Hematology/Oncology Disorders: No Family Medical History Any Significant Family History?: Yes Hx Cancer: Mother, Brother/Sister Physical Exam - General Limitations: No limitations Course Vital Signs 11/28/16 11/28/16 11/28/16 16:53 17:56 18:43 Temperature 99.3 F 98.6 F Pulse Rate 96 H Pulse Rate [ 74 Pulse Ox Probe] Respiratory 20 18 Rate Blood Pressure 207/101 Blood Pressure 198/94 219/105 [Left Arm] Pulse Ox 94 L 95 11/28/16 19:14 Temperature Pulse Rate Pulse Rate [ 67 Pulse Ox Probe] Respiratory 16 Rate Blood Pressure Blood Pressure 179/93 [Left Arm] Pulse Ox 95 - Reevaluation(s) Reevaluation #1: LASHAWN Szymanski who accepts patient to Dr. Veliz's service. 11/28/16 20:03 Medical Decision Making - Lab Data Result diagrams: 11/28/16 17:30 11/28/16 17:30 Lab Results 11/28/16 11/28/16 11/28/16 Range/Units 17:30 17:30 17:30 WBC 7.9 (4.2-12.2) K/uL RBC 3.50 L (3.80-5.40) M/uL Hgb 10.4 L (11.6-16.0) gm/dl Hct 32.2 L (35.0-47.0) % MCV 92.0 (81-97) fl MCH 29.7 (27-33) pg MCHC 32.3 (32-36) g/dl RDW 13.2 (11.5-14.5) % Plt Count 120 L (130-400) K/uL MPV 10.1 (7.4-10.4) fl Gran % 76.3 (47-80) % Lymphocytes % 16.9 (16-45) % Monocytes % 6.1 (0-9) % Eosinophils % 0.6 (0-6) % Basophils % 0.1 (0-6) % Sodium 135 L (136-145) mmol/L Potassium 4.2 (3.5-5.1) mmol/L Chloride 98 (98-107) mmol/L Carbon Dioxide 27.5 (22-30) mmol/L Anion Gap 9.5 (7-16) BUN 10 (7-17) mg/dL Creatinine 0.7 (0.52-1.04) mg/dL Estimated GFR > 60 ml/min Random Glucose 99 (70-110) mg/dL Calcium 8.9 (8.5-10.1) mg/dL Magnesium 1.3 L (1.6-2.3) mg/dL Total Bilirubin 0.77 (0.2-1.3) mg/dL AST 20 (14-36) U/L ALT 18 (9-52) U/L Alkaline Phosphatase 83 (38-126) U/L Total Protein 6.6 (6.3-8.2) gm/dL Albumin 4.0 (3.5-5.0) gm/dL Globulin 2.6 (1.4-4.8) gm/dL Albumin/Globulin Ratio 1.5 (1.1-1.8) TSH 3.21 (0.465-4.68) uIU/ml Urine Color Yellow Urine Appearance Clear Urine pH 6.0 (5.0-8.0) Ur Specific [place] <= 1.005 (1.002-1.030) Urine Protein Negative (NEGATIVE) Urine Glucose (UA) Negative (NEGATIVE) Urine Ketones Negative (NEGATIVE) Urine Blood Negative (NEGATIVE) Urine Nitrite Negative (NEGATIVE) Urine Bilirubin Negative (NEGATIVE) Urine Urobilinogen 0.2 (0.20 - 1.00) E.U./dL Ur Leukocyte Esterase Negative (NEGATIVE) Disposition Clinical Impression: Neurologic ambulation disorder Dementia Qualifiers: Dementia type: unspecified type Dementia behavioral disturbance: without behavioral disturbance Qualified Code(s): F03.90 - Unspecified dementia without behavioral disturbance Hypertension Qualifiers: Hypertension type: essential hypertension Qualified Code(s): I10 - Essential ( primary) hypertension Disposition: Still a Patient at [facility] Condition: (1) Good Instructions: Dementia (ED) Referrals: Jolanta Lazo L.M.S.W. [Surface Miner Salvage Repairer] - Forms: Patient Portal Access
[2016-11-28] MEDS ORDERED: AL HYDROX/MAG HYDROX 30ML UD PO PRN (20:42)
[2016-11-28] MEDS ORDERED: ACETAMINOPHEN 500 MG TABLET PO PRN (20:42)
[2016-11-28] MEDS: LORAZEPAM 0.5 MG TABLET PO SCH (22:20)
[2016-11-28] MEDS: METFORMIN 500 MG TABLET PO SCH (22:20)
[2016-11-28] MEDS: MEMANTINE HCL 10 MG TABLET PO SCH (22:21)
[2016-11-29] MEDS: LORAZEPAM 0.5 MG TABLET PO SCH (06:21)
[2016-11-29] MEDS ORDERED: PANTOPRAZOLE SODIUM 40 MG TABLET PO SCH (08:00)
--- NOTE | 2016-11-29 08:38 | CT SCAN REPORT ---
EXAM: CT SCAN OF THE BRAIN WITHOUT CONTRAST HISTORY: CONFUSION TODAY. TECHNIQUE: Standard CT imaging of the brain was performed in the axial plane without contrast. Comparison: 12/03/15. Encounter: Not applicable. FINDINGS: There is mild generalized atrophy. The ventricles and subarachnoid spaces are otherwise normal. Moderate chronic small vessel ischemic changes are present within the periventricular and subcortical white matter of both cerebral hemispheres and are unchanged. There is no mass, mass effect, intracranial hemorrhage, visible acute infarct, or abnormal extraaxial fluid. The skull is intact. The orbits, sinuses, and mastoids are normal. IMPRESSION: 1. NO ACUTE INTRACRANIAL ABNORMALITY. 2. MILD ATROPHY AND MODERATE CHRONIC SMALL VESSEL ISCHEMIC CHANGES. JOB NUMBER: [id number] MTDD
[2016-11-29] MEDS ORDERED: LISINOPRIL 20 MG TABLET PO SCH (10:00)
[2016-11-29] MEDS: MEMANTINE HCL 10 MG TABLET PO SCH ×2 (10:57→22:54)
[2016-11-29] MEDS: MELOXICAM 7.5 MG TABLET PO SCH (10:58)
[2016-11-29] MEDS: SIMVASTATIN 20 MG TABLET PO SCH (10:58)
[2016-11-29] MEDS: ISOSORBIDE MONONITRATE 30 MG TAB.ER.24H PO SCH (10:59)
[2016-11-29] MEDS: METFORMIN 500 MG TABLET PO SCH ×2 (10:59→22:53)
[2016-11-29] MEDS ORDERED: LORAZEPAM 0.5 MG TABLET PO PRN (11:06)
--- NOTE | 2016-11-29 17:44 | Rehab Evaluation ---
Patient Information - Patient Information Diagnosis: Dementia, deconditioned Ordered Treatment: PT Evaluate and Treat Status: Initial Evaluation History: Detail (The patient presented to ED on 11/28 with increased confusion over the past few days. The patient lived with her brother and his the past 9 months.) Past Medical/Surgical Hx: PAST MEDICAL/SURGICAL HISTORY Past Surgical History CHOLECYSTECTOMY PMH - Respiratory Hx Respiratory Disorders No PMH - Cardiovascular Hx Cardiovascular Disorders Yes Hx Hypertension Yes Comment: HYPERLIPIDEMIA PMH - Neuro Hx Neurological Disorders Yes Hx Dementia Yes PMH - GI Hx Gastrointestinal Disorders Yes Hx Gastrointestinal Bleed Yes PMH - Hx Genitourinary Disorders Yes Hx Urinary Tract Infection Yes PMH - Endocrine Hx Endocrine Disorders Yes Hx Diabetes Yes: NIDDM Hx Thyroid Disease No PMH - Musculoskeletal Hx Musculoskeletal Disorders Yes Hx Arthritis Yes PMH - Psych Hx Psychiatric Problems Yes Hx Anxiety Yes Hx Depression Yes PMH - Hematology/Oncology Hx Hematology/Oncology No Disorders Premorbid Status: Detail (The patient was living with her brother and his .) Social History: Detail (The patient was unable to provide details of her living environment.) Precautions: [place], Fall - Time With Patient Total Time Spent With Patient (Min): 30 Treatment Procedures: Detail (PT initial evaluation) Subjective Information - Subjective Information Per Patient (The patient complained of R shoulder pain and bilateral ankle and knee pain. The patient stated she had arthritis in numerous joints.) Objective Data - Mental Status Patient Orientation: Person (The patient knew her name and date of but not year. The patient was unable to identify place or year/month. The patient followed simple commands inconsistently. The patient perserverated on the year 1980. The patient was talking to family members who were not present.) - Visual Perception Deficit (The patient " stepped over" change in floor surface ie : from brown wood colored to tile floor.) - ROM Not within normal limits (Refer to OT note for UE ROM limitations. LE ROM was within functional limits in hips and knee and to nuetral dorsiflexion in both ankles.) - Strength/Tone Not within normal limits (The patient was unable to understand use of resistance for manual muscle testing howver the patient's LE strength was functional ie: use of LE's for bridging.) - Bed Mobility Needs Assist (The patient required minimal PA and maximal verbal encouragement for supine to sit and independent with sit to supine. The patient was independent with scooting up in bed. The patient was short of breath with bed mobility.) - Transfers Needs Assist (The patient required moderate PA of 2 with sit to and from stand transfers.) - Balance Balance Sitting: Poor (The patient leaned posteriorly especially when lifting extremities and required support of arms to maintain balance.) Balance Standing: Fair (The patient required walker for support to stand.) - Gait Detail (The patient ambulated with wheeled walker with CG of 1 and verbal cues for proper technique 30 feet x 2. The patient's gait pattern was characterized by decreased stride length and occasional random high steps. The patient was short of breath with ambulation.) Therapy Assessment - Therapy Assessment Detail (The patient was able to complete mobility with assistance and verbal cues at times for proper and safe technique. Patient exhibited shortness of breath with all activity. The patient's sitting and standing balance were impaired. Feel the patient would benefit from short term rehab to improve her functional status in a facility with a memory care unit.) Problem List - Problem List Physical Therapy Problem List: Detail (1) Cognitive status 2) Assistance with transfers and ambulation 3) Shortness of breath with physical activity) Goals - Goals Physical Therapy Goals: 1) The patient will ambulate with assistive device with CG/ Supervision a distance of 50 to 75 feet with minimal shortness of breath. 2 ) The patient will achieve transfers with minimal assist/CG. 3) Improve the patient's sitting balance to Fair level and standing balance to good level. 4) The patient will be independent / supervision with all bed mobility. Plan - Plan Physical Therapy Plan: PT daily M-F for ambulation, transfer training, bed mobility and balance exercises/activity.
--- NOTE | 2016-11-29 17:46 | Rehab Evaluation ---
Patient Information - Patient Information Diagnosis: altered mental status Ordered Treatment: OT Evaluate and Treat Status: Initial Evaluation Surgery: No Past Medical/Surgical Hx: PAST MEDICAL/SURGICAL HISTORY Past Surgical History CHOLECYSTECTOMY PMH - Respiratory Hx Respiratory Disorders No PMH - Cardiovascular Hx Cardiovascular Disorders Yes Hx Hypertension Yes Comment: HYPERLIPIDEMIA PMH - Neuro Hx Neurological Disorders Yes Hx Dementia Yes PMH - GI Hx Gastrointestinal Disorders Yes Hx Gastrointestinal Bleed Yes PMH - Hx Genitourinary Disorders Yes Hx Urinary Tract Infection Yes PMH - Endocrine Hx Endocrine Disorders Yes Hx Diabetes Yes: NIDDM Hx Thyroid Disease No PMH - Musculoskeletal Hx Musculoskeletal Disorders Yes Hx Arthritis Yes PMH - Psych Hx Psychiatric Problems Yes Hx Anxiety Yes Hx Depression Yes PMH - Hematology/Oncology Hx Hematology/Oncology No Disorders Social History: Detail (Per reading physician report, pt. was living with brother the past 9 months and was getting progressively worse. Pt. was confused and unable to answer questions about functional status (current or previous) or living status.) Precautions: [place], Fall, Other (AMS: Pt. able to follow simple commands if allowed extra time to process and respond. Pt. was fearful of falling but transfered and walked well with encouragement and reassurance. Pt. consistently believes it is the year 1980, and sometimes talked to people who weren't present. Pt. demo. SOB with simple physical movements (such as supine to sit transition). Pt. c/o dizziness and nausea with supine to sit transition.) - Time With Patient Total Time Spent With Patient (Min): 35 Objective Data - Pain Pain Present: Yes (Pt. reported pain in ankles, knees, and shoulders stating d/ t arthritis.) - Visual Perception Deficit (Pt. demo. mod to significant visual perceptual deficits that effect her activities and behavior. For example, she may view the change in tile to wood dora as a hole and be fearful of stepping in that area.) - ROM Not within normal limits (BUE shoulder AROM and PROM significantly limited to approx. 90 degrees flex and c/o pain with motion that may effect ability to reach up to a walker during sit<>stand transitions. Pt. uses compensatory movements (i.e. to reach hair). Elbow flex/ext, forearm sup/pro, and wrist AROM WFL.) - Strength/Tone Not within normal limits (Pt. had difficulty understanding directions to complete MMT. Pt. demo. significant muscle fatigue with shoulder flex (at 90 degrees) & abd. MMT 4- biceps & 4+ triceps bilaterally.) - Bed Mobility Needs Assist (min assist supine to sit) - Transfers Needs Assist (mod sit<>stand w/ posterior lean and delayed movement sequence.) - Balance Balance Sitting: Poor Balance Standing: Fair Therapy Assessment - Therapy Assessment Detail (Pt. would benefit from period trial of therapy to maximize safety and independence with ADL's, and increase BUE strength and ROM to facilitate ease of transfers. Pt. would benefit from LT facility with staff trained in memory care techniques. Pt. would benefit from recreational activities and fidgets to reduce agitation.) Problem List - Problem List Occupational Therapy Problem List: Detail (Decreased BUE shoulder strength & AROM, decreased activity endurance, and decreased independence with ADL's.) Goals - Goals Occupational Therapy Goals: 1) Assess dressing, toileting, and/or hygience at sink (i.e. brush teeth, hair, etc.). 2) Increase activity endurance to complete an ADL task for 3 minutes without SOB. 3) Increase BUE strength, endurance, and AROM to tolerate repetitive hand to mouth motions and access her environment (i.e. reach a glass or remote control on bedside tray). Prognosis - Prognosis Moderate Plan - Plan Occupational Therapy Plan: Tx pt. for duration of hospital stay M-F 2-4x/week.
[2016-11-29] MEDS: ENOXAPARIN 40 MG/0.4 ML SYR SQ SCH (22:53)
[2016-11-30] MEDS: MEMANTINE HCL 10 MG TABLET PO SCH (09:31)
[2016-11-30] MEDS: METFORMIN 500 MG TABLET PO SCH (09:31)
[2016-11-30] MEDS: MELOXICAM 7.5 MG TABLET PO SCH (09:32)
[2016-11-30] MEDS: ENOXAPARIN 40 MG/0.4 ML SYR SQ SCH (09:32)
[2016-11-30] MEDS: SIMVASTATIN 20 MG TABLET PO SCH (09:32)
[2016-11-30] MEDS: ISOSORBIDE MONONITRATE 30 MG TAB.ER.24H PO SCH (09:32)
[2016-11-30] MEDS ORDERED: CLONIDINE TTS-0.1MG PATCH TD SCH (10:00)
[2016-11-30] MEDS ORDERED: LISINOPRIL 20 MG TABLET PO SCH (10:00)
--- NOTE | 2016-11-30 10:15 | History and Physical Report ---
DATE OF EVALUATION: 11/29/2016 DATE OF ADMISSION: 11/30/2016 CHIEF COMPLAINT: Increasing confusion over her baseline. Weakness. Frequent falls. Unable to get up on her own. Dementia is chronic. Hypertension. HISTORY OF CHIEF COMPLAINT: Patient was seen in the Emergency Department first by Dr. Espitia and Dr. Brooks. Dr. Brooks could not get her up off the cart and admitted her for further care with a diagnosis of dementia and hypertension. In the Emergency Department, a head CT was done, which was no acute intracranial abnormalities. Mild atrophy. Mild chronic small-vessel ischemia. PAST MEDICAL HISTORY: Dementia. Hypercholesterolemia. GERD. Diabetes mellitus. Arthritis. Coronary artery disease. PAST SURGICAL HISTORY: Cholecystectomy. She also has anxiety and depression. MEDICATIONS ON ADMISSION: Lexapro 5 mg daily. Simvastatin 40 mg daily. Omeprazole 10 mg daily. Metformin HCL 500 mg b.i.d. Namenda 5 mg b.i.d. Mobic 15 mg daily. Ativan 0.5 mg daily every 8 hour p.r.n. Lisinopril 20 mg daily. Imdur 30 mg daily. [id number] one patch weekly. Tylenol No. 3 is 1 every 4 hours p.r.n. ALLERGIES: No known drug allergies. FAMILY PSYCHOSOCIAL HISTORY: She is a former smoker. Stopped in 1984. No alcohol or drug use. FAMILY HISTORY: Mother had cancer. Brother and sister had cancer. REVIEW OF SYSTEMS: HEENT: No upper respiratory infection symptoms, cough, cold , or congestion. Cardiovascular: No chest pain, palpitations, or arrhythmias. Respiratory: No cough, cold or congestion. Gastrointestinal: No nausea, vomiting, diarrhea, black stools, or bloody stools. Genitourinary: No dysuria , hematuria, frequency, or burning on urination. Musculoskeletal: She does have arthritis, but moving all 4 extremities. Neurologic: She has dementia. She is confused to time and location, but not her name. LEAD WELDER: No abnormal lumps in her breasts or abnormal vaginal bleeding. Endocrine: She does have diabetes type 2. Integument: No rash, ulcers, changes in moles, or yellow skin. PHYSICAL EXAMINATION: VITAL SIGNS: Height 5'5". Weight 127 pounds. Temperature 97.6. Pulse 94. Blood pressure 167/92. Respiratory rate 16. Pulse ox 95% on room air. HEENT: Pupils equal, round, and reactive to light and accommodation. Extraocular muscles intact. Throat is clear. Nose is clear. Tympanic membranes zaragoza. NECK: Supple. No jugular venous distention. No hepatojugular reflux. No carotid bruits. Thyroid is smooth. CARDIOVASCULAR: Regular rate and rhythm without murmurs, clicks, rubs, or gallops. RESPIRATORY: Clear to auscultation and percussion. ABDOMEN: Soft, nontender, no hepatosplenomegaly. No masses or tenderness. Bowel sounds active. No bruits. EXTREMITIES: No pitting edema. No cyanosis or clubbing. Full range of motion. Peripheral pulses good. BREASTS: Deferred. GYNECOLOGIC: Deferred. RECTAL: Deferred. NEUROLOGIC: Cranial nerves II-XII intact. No gross deficits. Sensation normal. Strength normal. Deep tendon reflexes equal bilaterally. Babinski is negative. MENTAL STATUS: Alert and oriented to person, but not time and place. IMPRESSION: 1. Altered mental status. 2. Dementia, worse than her baseline. 3. Hypertension. 4. Weakness. 5. Frequent falls. 6. Diabetes mellitus type 2. 7. Hypercholesterolemia. 8. GERD. 9. Arthritis. 10. Coronary artery disease. 11. Hypertension. 12. Hypomagnesemia, magnesium 1.3 on November 28. PLAN: Monitor. Adjust meds. Possibly [facility] for further evaluation or placement into a rehab for strengthening because of her weakness and inability to stand. INPATIENT CERTIFICATION: Admit to Inpatient Care. Based on my medical assessment and after consideration of patient risk factors, age, comorbidities, and patient presenting symptoms on Acute, I expect this patient will remain in the hospital greater than or equal to 2 midnights, and the services needed warrant inpatient care because of weakness, dementia, frequent falls, unable to take of herself, hypertension, and diabetes mellitus type 2. ESTIMATED LENGTH OF STAY: 3 days. The patient may reasonably be expected to be discharged or transferred to a hospital within 96 hours after admission to [facility]. I certify that my determination is in accordance with my understanding of Medicare requirements for reasonable and necessary inpatient services. JR
--- NOTE | 2016-11-30 10:50 | Physical Therapy Tx Note ---
<Margie Lou L - Last Filed: 11/30/16 10:39> Physical Therapy Tx Note - Treatment Note Tolerated: Good Total Time Spent With Patient: 35 Physical Therapy Tx Note: Detail (Patient states feeling better today. Patient transferred supine to sit independently. Patient transferred sit to and from stand CGA x1. Patient ambulated 13 feet with wheeled walker CGA x1. Patient transferred sit to and from stand CGA x1. Patient ambulated 150 feet with wheeled walker CGA x1. Patient performed the following exercises x10 reps each : seated marching, LAQ, seated heel raises, seated toe raises, seated isometric hip abduction, seated isometric hip adduction, and seated isometric hamstring sets. Patient transferred sit to supine independently. Patient scooted up in bed independently. Patient tolerated treatment well. Patient required cueing for correct postioning of walker when turning. Patient reports tired after treatment. Patient was left supine in bed with call light within reach and bed alarm on.) Physical Therapy Problem List: Detail (1) Cognitive status 2) Assistance with transfers and ambulation 3) Shortness of breath with physical activity) Physical Therapy Goals: 1) The patient will ambulate with assistive device with CG/ Supervision a distance of 50 to 75 feet with minimal shortness of breath. 2 ) The patient will achieve transfers with minimal assist/CG. 3) Improve the patient's sitting balance to Fair level and standing balance to good level. 4) The patient will be independent / supervision with all bed mobility. Prognosis: Good Physical Therapy Plan: PT daily M-F for ambulation, transfer training, bed mobility and balance exercises/activity. <Jose PTPaula V - Last Filed: 11/30/16 12:48> Physical Therapy Tx Note - Treatment Note Physical Therapy Tx Note: Detail (Patient states feeling better today. Patient transferred supine to sit independently. Patient transferred sit to and from stand CGA x1. Patient ambulated 13 feet with wheeled walker CGA x1. Requested assist for pulling underwear down for toileting, but then independently stood and pulled them up afterward. VC's for positioning and navigating walker. Patient transferred sit to and from stand independently. Changed gown that got wet in toilet; pt stood w/SBA for removal of gown and donning new one. Patient ambulated 150 feet with wheeled walker CGA x1. Patient performed the following exercises x10 reps each: seated marching, LAQ, seated heel raises, seated toe raises, seated isometric hip abduction, seated isometric hip adduction, and seated isometric hamstring sets. Patient transferred sit to supine independently. Patient scooted up in bed independently. Patient tolerated treatment well. Patient required cueing for correct postioning of walker when turning. Patient reports tired after treatment. Patient was left supine in bed with call light within reach and bed alarm on. O2 sat remained 96 -98% during bed mobility and gait; pt denied shortness of breath.)
--- NOTE | 2016-11-30 13:13 | Discharge Note ---
VTE H&P Assessment - Risk for VTE Risk for VTE: Yes Risk Level: Moderate Risk Assessment Date: 11/29/16 Risk Assessment Time: 19:30 VTE Orders Placed or Will Be Placed: Yes Discharge Medications - Discharge Medications Prescriptions: Magnesium Oxide [Mag Ox] 400 mg PO DAILY #30 tab Home Medications: Ambulatory Orders Metformin HCl [Glucophage Ir] 500 mg PO BID 12/14/13 [Last Taken 11/28/16] Memantine HCl [Namenda] 5 mg PO BID 09/29/15 [Last Taken 11/28/16] Clonidine [Catapres-Tts 1] 1 each TD WEEKLY 03/18/16 [Last Taken 11/28/16] Meloxicam [Mobic] 15 mg PO DAILY 03/18/16 [Last Taken 11/28/16] Isosorbide Mononitrate [Imdur] 30 mg PO DAILY 06/24/16 [Last Taken 11/28/16] Omeprazole 10 mg PO DAILY 06/24/16 [Last Taken 11/28/16] Simvastatin 40 mg PO DAILY 06/24/16 [Last Taken 11/28/16] Acetaminophen [Tylenol 500Mg Tab] 500 mg PO Q6H PRN 11/30/16 [Last Taken Unknown ] Magnesium Hydroxide/Al Hydrox [Maalox] 30 ml PO Q4H PRN 11/30/16 [Last Taken Unknown] Magnesium Oxide [Mag Ox] 400 mg PO DAILY #30 tab 11/30/16 [Last Taken Unknown] Discharge Note - Date Date of Discharge Note: 11/30/16 Disposition: Inpatient Rehab Facility Condition: (1) Good Instructions: Dementia (ED) Additional Instructions: follow up with primary drLefty after rehab Visiting physicians or Dr. Villasenor Prescriptions: Magnesium Oxide [Mag Ox] 400 mg PO DAILY #30 tab Referrals: Jolanta Lazo L.M.S.W. [Cartridge Loading Operator Flash Drier Operator] - Forms: Patient Portal Access Activity at Discharge: As Per Physical Therapy, Increase Activity as Tolerated Diet at Discharge: Diabetic Diet
[2016-11-30 13:17] LABS: ANION GAP 13.4 (7-16); BLOOD UREA NITROGEN 11 mg/dL (7-17); CARBON DIOXIDE 25.6 mmol/L (22-30); CREATININE 0.6 mg/dL (0.52-1.04); EST GLOMERULAR FILTRATION RATE > 60 ml/min; GLUCOSE,RANDOM 118 mg/dL (70-110)
[2016-11-30] MEDS ORDERED: MAGNESIUM SULFATE 16 MEQ in 0.9 % SODIUM CHLORIDE 100ML 100 ML IV ONE (13:59)
--- NOTE | 2016-11-30 17:20 | Discharge Summary ---
DATE: 11/30/2016 DISCHARGE DIAGNOSES: 1. Hypomagnesemia. 2. Dementia. 3. Weakness. 4. Hypertension. 5. Diabetes mellitus type 2. 6. Frequent falls. ATTENDING PHYSICIAN: Kike Garber DO REASON FOR HOSPITALIZATION: Increasing confusion over baseline weakness, frequent falls, unable to get up on her own, dementia which is chronic, and hypertension. This patient was seen in the emergency department first by Dr. Espitia and then by Dr. Brooks. Magnesium level was low at 1.3. Dr. Brooks could not get the patient up off the cart and she was admitted for further care with a diagnosis of dementia and hypertension. In the emergency department, a head CT was done which was no acute intracranial abnormalities, mild atrophy, and mild chronic small-vessel ischemia. The patient had laboratory work done. SIGNIFICANT FINDINGS FROM EXAMINATION: CT was just described. The laboratory revealed WBC 7900, hemoglobin 10.4. Sodium 135, potassium 4.2, BUN 10, creatinine 0.7, calcium 8.9, magnesium 1.3. TSH was 3.21. UA was negative. THERAPY PROVIDED: The patient was given IV fluids. She was also given 1 dose of magnesium oxide 400 mg. Her Lexapro was stopped. Pain medication Tylenol #3 was stopped and Ativan was only used sparingly. The patient improved and was up to the bathroom 3 times on the day of discharge. HOSPITAL COURSE: The patient gradually improved. CONDITION ON DISCHARGE: Improved. DISCHARGE INSTRUCTIONS: Follow up with visiting physician or Dr. Villasenor after she is done with subacute rehab. She is being transferred to [facility] for further care. She is going to be placed on magnesium oxide 400 mg once a day. Continue her home medications of simvastatin 40 mg daily, omeprazole 10 mg daily, metformin 500 mg b.i.d., Namenda 5 mg b.i.d., Mobic 15 mg daily. We will stop the Ativan, stop the Tylenol #3. Lisinopril was increased to 40 mg daily, isosorbide mononitrate (Imdur) was 30 mg a day. Klonopin patch TTS-1 once a week. A patch was applied yesterday on 11/29/2016. We will also stop the Lexapro. Activity as tolerated. Physical therapy to increase her as tolerated. May need to increase the Klonopin patch to TTS-2 if her blood pressure does not come down in a reasonable range, but she just had the increased lisinopril to 40 mg once a day. Recommend giving that about a week before increasing blood pressure medications. CC: DANELLE VILLASENOR MD, FACP MTDD
== END 2016-11-30 16:30 | DRG 641 ==
LOC: ER 16:46 → MEDSURG 20:30 → INTOOBSV 20:30 → UNDOADMOB 20:30 → OBSVTOIN 20:42 → MEDSURG 20:42 → UNDOADMOB 11-30 08:26 → OBSVTOIN 11-30 08:26 → INTOOBSV 11-30 08:26 → UNDODISIN 11-30 16:30
PROVIDERS: ADMIT Family Medicine; ATTEND Emergency Medicine
DX: R41.82 Altered mental status, unspecified (principal); F03.90 Unspecified dementia, unspecified severity, without behavioral disturbance, psychotic disturbance, mood disturbance, and anxiety; E83.42 Hypomagnesemia; F05 Delirium due to known physiological condition; R53.1 Weakness; Z91.81 History of falling; E78.00 Pure hypercholesterolemia, unspecified; E11.9 Type 2 diabetes mellitus without complications; Z79.84 Long term (current) use of oral hypoglycemic drugs; I25.10 Atherosclerotic heart disease of native coronary artery without angina pectoris; D69.6 Thrombocytopenia, unspecified; I10 Essential (primary) hypertension; K21.9 Gastro-esophageal reflux disease without esophagitis
CPT/HCPCS: 36416; 70450; 80048; 80053; 81003; 82948; 83735; 84443; 85025; 97110; 97165; 97530; 99223; 99239; 99285; J1650

== ENCOUNTER 2016-12-22 19:08 | Emergency (ER) | payer MEDICARE ==
[2016-12-22] MEDS: ONDANSETRON HCL IV 4 MG/2 ML VIAL IVP ONE (19:30)
--- NOTE | 2016-12-22 19:31 | Emergency Department Record ---
History of Present Illness - General Chief Complaint: Fall Injury Stated Complaint: KNEE PAIN Time Seen by Provider: 12/22/16 19:24 Source: EMS Mode of Arrival: Stretcher Limitations: No limitations - History of Present Illness Initial Comments: 86 yo female presents to ED with a CC of left hip and knee pain following a witnessed fall prior to arrival. Patient denies other injury, but does have baseline confusion per the family members at the bedside. Family reports a history of HTN and DM. Patient denies the use anticoagulation medications. 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, by family Place Fall Occurred: Home Loss of Consciousness: None Prolonged Down Time?: No Symptoms Prior to Fall: None Location - Extremities: Left: Knee, Lower Leg Severity: Moderate Quality: Aching - Randal Coma Scale Eye Response: (4) Open spontaneously Motor Response: (6) Obeys commands Verbal Response: (5) Oriented [place] Total: 15 - Related Data Home Medications Medication Instructions Recorded Confirmed Last Taken Metformin HCl [Glucophage Ir] 500 mg PO BID 12/14/13 12/22/16 12/22/16 Memantine HCl [Namenda] 5 mg PO BID 09/29/15 12/22/16 12/22/16 Clonidine [Catapres-Tts 1] 1 each TD WEEKLY 03/18/16 12/22/16 12/21/16 Meloxicam [Mobic] 15 mg PO DAILY 03/18/16 12/22/16 12/22/16 Isosorbide Mononitrate [Imdur] 30 mg PO DAILY 06/24/16 12/22/16 12/22/16 Omeprazole 20 mg PO DAILY 06/24/16 12/22/16 12/22/16 Simvastatin 40 mg PO QPM 06/24/16 12/22/16 12/22/16 Amlodipine Besylate [Norvasc] 10 mg PO DAILY 12/22/16 12/22/16 12/22/16 Chlorthalidone 50 mg PO DAILY 12/22/16 12/22/16 12/22/16 Lisinopril 20 mg PO QPM 12/22/16 12/22/16 12/22/16 Potassium Chloride [Klor-Con M20] 20 meq PO BID 12/22/16 12/22/16 12/22/16 Previous Rx's Medication Instructions Recorded Acetaminophen [Tylenol 500Mg Tab] 500 mg PO Q6H PRN 11/30/16 Magnesium Hydroxide/Al Hydrox 30 ml PO Q4H PRN 11/30/16 [Maalox] Magnesium Oxide [Mag Ox] 400 mg PO DAILY #30 tab 11/30/16 Allergies Allergy/AdvReac Type Severity Reaction Status Date / Time No Known Drug Allergies Allergy Verified 11/28/16 17:02 Review of Systems Constitutional: Denies: Chills, Fever, Malaise, Night sweats Eyes: Denies: Eye discharge, Eye pain ENT: Denies: Congestion, Ear pain, Epistaxis Respiratory: Denies: Cough, Dyspnea Cardiovascular: Denies: Chest pain, Dyspnea on exertion Endocrine: Denies: Fatigue, Heat or cold intolerance Gastrointestinal: Denies: Abdominal pain, Nausea, Vomiting Genitourinary: Denies: Incontinence, Retention Musculoskeletal: Reports: Arthralgia. Denies: Back pain, Gout, Joint swelling Skin: Denies: Bruising, Change in color, Change in hair/nails Neurological: Denies: Abnormal gait, Confusion, Headache, Seizure Psychiatric: Denies: Anxiety Hematological/Lymphatic: Denies: Anemia, Blood Clots Past Medical History - SOCIAL HISTORY Smoking Status: Former smoker Drug Use: None - RESPIRATORY Hx Respiratory Disorders: No - CARDIOVASCULAR Hx Cardio Disorders: Yes Hx Hypertension: Yes Comment:: HYPERLIPIDEMIA - NEURO Hx Neuro Disorders: Yes Hx Dementia: Yes - GI Hx GI Disorders: Yes Hx GI Bleed: Yes - Hx Genitourinary Disorders: Yes Hx UTI: Yes - ENDOCRINE Hx Endocrine Disorders: Yes Hx Diabetes: Yes (NIDDM) Hx Thyroid Disease: No - MUSCULOSKELETAL Hx Musculoskeletal Disorders: Yes Hx Arthritis: Yes - PSYCH Hx Psych Problems: Yes Hx Anxiety: Yes Hx Depression: Yes - HEMATOLOGY/ONCOLOGY Hx Hematology/Oncology Disorders: No Family Medical History Hx Cancer: Mother, Brother/Sister Physical Exam - General General Appearance: Alert, Oriented x3, Cooperative, No acute distress Limitations: No limitations - Head Head exam: Atraumatic, Normocephalic, Normal inspection Head exam detail: negative: Abrasion, Contusion, Yeager's sign, General tenderness, Hematoma, Laceration - Eye Eye exam: Normal appearance. negative: Conjunctival injection, Periorbital swelling, Periorbital tenderness, Scleral icterus - ENT Ear exam: negative: Auricular hematoma, Auricular trauma Nasal Exam: negative: Active bleeding, Discharge, Dried blood, Foreign body Mouth exam: negative: Drooling, Laceration, Muffled voice, Tongue elevation - Neck Neck exam: Other (cervical collar in place) - Respiratory Respiratory exam: Normal lung sounds bilaterally. negative: Rales, Respiratory distress, Rhonchi, Stridor - Cardiovascular Cardiovascular Exam: Regular rate, Normal rhythm, Normal heart sounds - GI/Abdominal GI/Abdominal exam: Soft. negative: Rebound, Rigid, Tenderness - Rectal Rectal exam: Deferred - exam: Deferred - Extremities Extremities exam: Tenderness, Other (TTP lateral hip on examination, shortended lower extremity, mild external rotation, strong DPP present). negative: Calf tenderness, Pedal edema - Back Back exam: Denies: CVA tenderness (R), CVA tenderness (L), Paraspinal tenderness - Neurological Neurological exam: Alert, Normal gait, Oriented X3 - Psychiatric Psychiatric exam: Normal affect, Normal mood - Skin Skin exam: Normal color. negative: Abrasion Type of lesion: negative: abrasion Course - Reevaluation(s) Reevaluation #1: 12/22/16 19:44 EKG: NST 85 Normal axis, normal intervals No acute ST-T wave changes are present. Reevaluation #2: 12/22/16 20:04 Labs reviewed, Hgb 10.9, Na 125. Labs are otherwise grossly unremarkable for an acute process. Reevaluation #3: 12/22/16 21:12 CT Head: Generalized atrophy, nothing acute CT Cervical Spine: Degenerative changes, nothing acute. Left Hip: Intertrochanteric hip fracture, comminuted Left Knee: Osteoporosis, no fracture Cervical Spine cleared clinically, [facility]. 12/22/16 21:42 Reevaluation #4: 12/22/16 22:30 Case was discussed with Dr. Venegas (ER provider), will accept transfer for orthopedic evaluation. Medical Decision Making - Lab Data Result diagrams: 12/22/16 19:20 12/22/16 19:20 Disposition Disposition: Transfer Clinical Impression: Hyponatremia Fracture, intertrochanteric, left femur Qualifiers: Encounter type: initial encounter Fracture type: closed Fracture alignment: displaced Qualified Code(s): S72.142A - Displaced intertrochanteric fracture of left femur, initial encounter for closed fracture Disposition: Acute Care Hospital Transfer Transfer To: [facility] Reason For Transfer: Intertrochateric femur fracture Accepting Physician: Wilfrido Lema Time Discussed w/Accepting Physician: 22:37 Condition: (2) Stable Forms: Patient Portal Access Time of Disposition: 22:37 Quality - Quality Measures Quality Measures: N/A - Blood Pressure Screening Blood Pressure Classification: Hypertensive Reading Systolic Measurement: 239 Diastolic Measurement: 106 Screening for High Blood Pressure: < First Hypertensive BP, F/U Documented > [ [id number]] First Hypertensive Follow-up Interventions: Referral to alternative/primary care provider.
[2016-12-22 19:42] LABS: BASO % 0.4 % (0-6); EOS % 1.3 % (0-6); GRAN % 51.3 % (47-80); HEMATOCRIT 32.7 % (35.0-47.0); HEMOGLOBIN 10.9 gm/dl (11.6-16.0); LYMPH % 36.3 % (16-45); MEAN CELL VOLUME 86.7 fl (81-97); MEAN CORPUSCULAR HEMOGLOBIN 28.9 pg (27-33); MEAN CORPUSCULAR HGB CONC 33.3 g/dl (32-36); MONO % 10.7 % (0-9); PLATELET COUNT 146 K/uL (130-400); RED BLOOD COUNT 3.77 M/uL (3.80-5.40); RED CELL DISTRIBUTION WIDTH 13.2 % (11.5-14.5); WHITE BLOOD COUNT W/O DIFF 5.2 K/uL (4.2-12.2)
[2016-12-22 19:53] LABS: ALB/GLOB RATIO 1.7 (1.1-1.8); ALBUMIN 4.5 gm/dL (3.5-5.0); ALKALINE PHOSPHATASE 83 U/L (38-126); ALT/SGPT 35 U/L (9-52); ANION GAP 15.5 (7-16); AST/SGOT 24 U/L (14-36); BILIRUBIN,TOTAL 0.65 mg/dL (0.2-1.3); BLOOD UREA NITROGEN 13 mg/dL (7-17); CARBON DIOXIDE 19.5 mmol/L (22-30); CREATININE 0.7 mg/dL (0.52-1.04); EST GLOMERULAR FILTRATION RATE > 60 ml/min; GLUCOSE,RANDOM 170 mg/dL (70-110); INR 0.93; TOTAL PROTEIN 7.2 gm/dL (6.3-8.2)
[2016-12-22] MEDS: MORPHINE SULFATE 5 MG/ML PFS IVP ONE ×2 (19:55→22:44)
--- NOTE | 2016-12-25 12:23 | RADIOLOGY REPORT ---
EXAM: LEFT HIP HISTORY: UNWITNESSED FALL WITH SEVERE LEFT HIP PAIN. TECHNIQUE: AP view of the pelvis and AP view of the left hip were obtained. Comparison: No prior left hip series within PACS with which to compare. Encounter: Initial. FINDINGS: Diffuse osteopenia is seen consistent with osteoporosis. There is a comminuted intertrochanteric left femoral neck fracture with resulting varus deformity and medial displacement of the lesser trochanter fracture fragment. No lateral view obtained, but as seen in the AP projection, no dislocation of the femoral head. Degenerative change visualized lower lumbar spine. There may be some old fracture deformity of the right side of the pubic symphysis. IMPRESSION: 1. INTERTROCHANTERIC COMMINUTED LEFT FEMORAL NECK FRACTURE WITH VARUS DEFORMITY. 2. OSTEOPOROSIS. JOB NUMBER: [id number] [facility]
--- NOTE | 2016-12-25 12:25 | RADIOLOGY REPORT ---
EXAM: LEFT KNEE HISTORY: UNWITNESSED FALL WITH KNEE PAIN. TECHNIQUE: AP and lateral views of the left knee were obtained. Comparison: None. Encounter: Initial. FINDINGS: Diffuse osteopenia consistent with osteoporosis. No fracture or dislocation of the left knee seen in the limited two view series. Some patellar spurring. IMPRESSION: 1. OSTEOPOROSIS. 2. PATELLAR SPURRING. 3. NO DEFINITE FRACTURE OF THE LEFT KNEE IDENTIFIED. JOB NUMBER: [id number] MTDD
--- NOTE | 2016-12-25 12:29 | CT SCAN REPORT ---
EXAM: HEAD CT WITHOUT CONTRAST HISTORY: UNWITNESSED FALL. TECHNIQUE: Axial CT scan of the head was performed without IV contrast. Comparison: Head CT dated 11/28/16. Encounter: Initial. FINDINGS: No definite acute intracranial hemorrhage identified. No focal mass effect or midline shift apparent. Generalized atrophy with chronic appearing deep white matter changes as before. No definite acute infarct or intracranial mass lesion is seen. IMPRESSION: 1. GENERALIZED ATROPHY WITH CHRONIC APPEARING DEEP WHITE MATTER CHANGES BEFORE. 2. NO DEFINITE ACUTE INTRACRANIAL HEMORRHAGE OR FOCAL MASS EFFECT IDENTIFIED. JOB NUMBER: [id number] [facility]
--- NOTE | 2016-12-25 12:52 | CT SCAN REPORT ---
EXAM: CERVICAL SPINE CT WITHOUT CONTRAST HISTORY: UNWITNESSED FALL. TECHNIQUE: Axial CT scan of the entire cervical spine was performed without IV contrast. Comparison: Prior cervical spine CT 08/26/16. Encounter: Initial. FINDINGS: There is some motion artifact at the C5 level, however, no definite fracture of the cervical spine identified. No prevertebral soft tissue swelling is evident. There is tilting of the cervical spine to the left likely due to positioning or spasm. Prominent degenerative change at the odontoid- anterior arch of C1 articulation. Multilevel facet joint arthropathy. Mild anterior subluxation of C5 on C6 and of C4 on C5. The C4 on C5 subluxation appears slightly increased compared to the prior study, but this is also where the motion artifact is most prominent today. There is facet joint arthropathy at this level which is likely the cause for the mild subluxation present. There is a small amount of material along the posterior aspect of the trachea at the level of the T1-T2 interspace which is probably just a small amount of mucous material. IMPRESSION: 1. NO DEFINITE FRACTURE OR PREVERTEBRAL SOFT TISSUE SWELLING IS SEEN IN THE CERVICAL SPINE. 2. TILTING OF THE CERVICAL SPINE TO THE LEFT LIKELY DUE TO POSITIONING OR SPASM. 3. MULTILEVEL DEGENERATIVE CHANGE IN THE CERVICAL SPINE. MILD ANTERIOR SUBLUXATION OF C4 ON C5 AND C5 ON C6 WHICH IS LIKELY ON A DEGENERATIVE BASIS. 4. SMALL SOFT TISSUE DENSITY ALONG THE POSTERIOR WALL OF THE TRACHEA AT THE APPROXIMATE T1-T2 LEVEL IS NONSPECIFIC, BUT PROBABLY JUST A SMALL AMOUNT OF RETAINED MUCOUS SECRETION. JOB NUMBER: [id number] [facility]
== END 2016-12-22 22:55 | disposition short-term general hospital (02) ==
LOC: ER 19:08
DX: S72.142A Displaced intertrochanteric fracture of left femur, initial encounter for closed fracture (principal); M25.562 Pain in left knee; E87.1 Hypo-osmolality and hyponatremia; I10 Essential (primary) hypertension; E11.9 Type 2 diabetes mellitus without complications; W07.XXXA Fall from chair, initial encounter; Y92.009 Unspecified place in unspecified non-institutional (private) residence as the place of occurrence of the external cause; Z79.84 Long term (current) use of oral hypoglycemic drugs; Z87.891 Personal history of nicotine dependence
CPT/HCPCS: 99284 ×2; 96376; 96374; 96375; 85025; 85610; 80053; 73560; 73502; 72125; 70450; 93005; 93010; J2405; J2270

== ENCOUNTER 2017-05-01 11:53 | Inpatient (IN) | payer MEDICARE ==
[2017-05-01] MEDS ORDERED: PROMETHAZINE HCL 25 MG/ML VIAL IM ONE (12:20)
[2017-05-01] MEDS ORDERED: 0.9% SODIUM CHLORIDE 250ML BAG IV ONE (12:20)
[2017-05-01] MEDS ORDERED: PROMETHAZINE HCL 6.25 MG in 0.9 % SODIUM CHLORIDE 100ML 100 ML IVPB ONE (12:26)
[2017-05-01 12:42] LABS: BASO % 0.2 % (0-6); EOS % 0.4 % (0-6); GRAN % 62.8 % (47-80); HEMATOCRIT 35.7 % (35.0-47.0); HEMOGLOBIN 12.2 gm/dl (11.6-16.0); LYMPH % 27.3 % (16-45); MEAN CELL VOLUME 89.9 fl (81-97); MEAN CORPUSCULAR HEMOGLOBIN 30.7 pg (27-33); MEAN CORPUSCULAR HGB CONC 34.2 g/dl (32-36); MEAN PLATELET VOLUME 9.2 fl (7.4-10.4); MONO % 9.3 % (0-9); PLATELET COUNT 223 K/uL (130-400); RED BLOOD COUNT 3.97 M/uL (3.80-5.40); RED CELL DISTRIBUTION WIDTH 13.6 % (11.5-14.5); WHITE BLOOD COUNT W/O DIFF 4.9 K/uL (4.2-12.2)
[2017-05-01 12:56] LABS: BILIRUBIN,TOTAL 0.6 mg/dL (0.2-1.0); CREATININE 1.1 mg/dL (0.5-0.9); TOTAL PROTEIN 7.9 g/dL (6.6-8.7)
[2017-05-01 13:01] LABS: ALB/GLOB RATIO 1.5 (1.1-1.8); ALBUMIN 4.7 g/dL (4.0-5.0)
[2017-05-01 13:33] LABS: URINE APPEARANCE CLEAR; URINE BILIRUBIN NEGATIVE (NEGATIVE); URINE BLOOD NEGATIVE (NEGATIVE); URINE COLOR YELLOW; URINE GLUCOSE (UA) NEGATIVE (NEGATIVE); URINE KETONE NEGATIVE (NEGATIVE); URINE LEUKOCYTE ESTERASE NEGATIVE (NEGATIVE); URINE NITRITE NEGATIVE (NEGATIVE); URINE PROTEIN NEGATIVE (NEGATIVE); URINE UROBILINOGEN 0.2 E.U./dL (0.20 - 1.00)
--- NOTE | 2017-05-01 14:00 | Emergency Department Record ---
History of Present Illness - General Chief complaint: Nausea, Vomiting, Diarrhea Stated complaint: VOMITING Time Seen by Provider: 05/01/17 12:13 Source: Patient, Family Mode of Arrival: Wheelchair Limitations: No limitations - History of Present Illness Initial comments: pt has had n/v, ap and diarrhea, confusion, hallucinations for 2 days. MD complaint: Abdominal pain, Diarrhea, Nausea, Vomiting Onset/Timin -: Week(s) Description of Vomiting: Other Description of Diarrhea: Other Location: Diffuse Radiation: None Consistency: Now resolved Improves with: None Worsens with: None Associated Symptoms: Nausea/vomiting, Other - Related Data Home Medications Medication Instructions Recorded Confirmed Last Taken Sulfamethoxazole/Trimethoprim 1 each PO BID 05/01/17 05/01/17 04/30/17 [Bactrim Ds Tablet] Previous Rx's Medication Instructions Recorded Acetaminophen [Tylenol 500Mg Tab] 500 mg PO Q6H PRN 11/30/16 Magnesium Oxide [Mag Ox] 400 mg PO DAILY #30 tab 11/30/16 Allergies Allergy/AdvReac Type Severity Reaction Status Date / Time No Known Drug Allergies Allergy Verified 11/28/16 17:02 Travel Screening - Travel/Exposure Within Last 30 Days Have you traveled within the last 30 days?: No - Travel/Exposure Within Last Year Have you traveled outside the [place] in the last year?: No - Additonal Travel Details Have you been exposed to anyone with a communicable illness?: No - Travel Symptoms Symptom Screening: None Review of Systems Reviewed: No additional complaints except as noted below Constitutional: Reports: As per HPI. Denies: Chills, Fever, Malaise, Night sweats, Weakness, Weight change Eyes: Reports: As per HPI. Denies: Eye discharge, Eye pain, Photophobia, Vision change ENT: Reports: As per HPI. Denies: Congestion, Dental pain, Ear pain, Epistaxis , Hearing loss, Throat pain Respiratory: Reports: As per HPI. Denies: Cough, Dyspnea, Hemoptysis, Stridor, Wheezes Cardiovascular: Reports: As per HPI. Denies: Arrhythmia, Chest pain, Dyspnea on exertion, Edema, Murmurs, Orthopnea, Palpitations, Paroxysmal nocturnal dyspnea, Rheumatic Fever, Syncope Endocrine: Reports: As per HPI. Denies: Fatigue, Heat or cold intolerance, Polydipsia, Polyuria Gastrointestinal: Reports: As per HPI. Denies: Abdominal pain, Constipation, Diarrhea, Hematemesis, Hematochezia, Melena, Nausea, Vomiting Genitourinary: Reports: As per HPI. Denies: Abnormal menses, Discharge, Dyspareunia, Dysuria, Frequency, Hematuria, Incontinence, Retention, Urgency Musculoskeletal: Reports: As per HPI. Denies: Arthralgia, Back pain, Gout, Joint swelling, Myalgia, Neck pain Skin: Reports: As per HPI. Denies: Bruising, Change in color, Change in hair/ nails, Lesions, Pruritus, Rash Neurological: Reports: As per HPI. Denies: Abnormal gait, Confusion, Headache, Numbness, Paresthesias, Seizure, Tingling, Tremors, Vertigo, Weakness Psychiatric: Reports: As per HPI. Denies: Anxiety, Auditory hallucinations, Depression, Homicidal thoughts, Suicidal thoughts, Visual hallucinations Hematological/Lymphatic: Reports: As per HPI. Denies: Anemia, Blood Clots, Easy bleeding, Easy bruising, Swollen glands Past Medical History - SOCIAL HISTORY Smoking Status: Former smoker Alcohol Use: None Drug Use: None - RESPIRATORY Hx Respiratory Disorders: No - CARDIOVASCULAR Hx Cardio Disorders: Yes Hx Hypertension: Yes Comment:: HYPERLIPIDEMIA - NEURO Hx Neuro Disorders: Yes Hx Dementia: Yes - GI Hx GI Disorders: Yes Hx GI Bleed: Yes - Hx Genitourinary Disorders: Yes Hx UTI: Yes - ENDOCRINE Hx Endocrine Disorders: Yes Hx Diabetes: Yes (NIDDM) Hx Thyroid Disease: No - MUSCULOSKELETAL Hx Musculoskeletal Disorders: Yes Hx Arthritis: Yes - PSYCH Hx Psych Problems: Yes Hx Anxiety: Yes Hx Depression: Yes - HEMATOLOGY/ONCOLOGY Hx Hematology/Oncology Disorders: No Family Medical History Any Significant Family History?: No Hx Cancer: Mother, Brother/Sister Physical Exam - General General Appearance: Alert, Cooperative, Mild distress - Head Head exam: Normal inspection - Eye Eye exam: Normal appearance, PERRL, EOMI Pupils: Normal accommodation - ENT ENT exam: Normal exam, Mucous membranes moist, Normal external ear exam, Normal orophraynx Ear exam: Normal external inspection. negative: External canal tenderness Nasal Exam: Normal inspection. negative: Discharge, Sinus tenderness Mouth exam: Normal external inspection, Tongue normal Teeth exam: Normal inspection. negative: Dental caries Throat exam: Normal inspection. negative: Tonsillar erythema, Tonsillar exudate - Neck Neck exam: Normal inspection, Full ROM. negative: Tenderness - Respiratory Respiratory exam: Normal lung sounds bilaterally. negative: Respiratory distress - Cardiovascular Cardiovascular Exam: Regular rate, Normal rhythm, Normal heart sounds - GI/Abdominal GI/Abdominal exam: Soft, Normal bowel sounds. negative: Tenderness - Rectal Rectal exam: Deferred - exam: Deferred - Extremities Extremities exam: Normal inspection, Full ROM, Normal capillary refill. negative: Tenderness - Back Back exam: Reports: Normal inspection, Full ROM. Denies: Muscle spasm, Rash noted, Tenderness - Neurological Neurological exam: Alert, CN II-XII intact, Normal gait - Psychiatric Psychiatric exam: Normal affect, Normal mood, Other (hallucinating) - Skin Skin exam: Dry, Intact, Normal color, Warm Course Vital Signs 05/01/17 05/01/17 11:56 13:09 Temperature 97.7 F 97.4 F L Pulse Rate 71 Pulse Rate [ 76 Pulse Ox Probe] Respiratory 20 16 Rate Blood Pressure 151/68 Blood Pressure 134/66 [Right Arm] Pulse Ox 97 Medical Decision Making - Lab Data Result diagrams: 05/01/17 12:10 05/01/17 12:10 Lab Results 05/01/17 05/01/17 05/01/17 Range/Units 12:10 12:10 12:10 WBC 4.9 (4.2-12.2) K/uL RBC 3.97 (3.80-5.40) M/uL Hgb 12.2 (11.6-16.0) gm/dl Hct 35.7 (35.0-47.0) % MCV 89.9 (81-97) fl MCH 30.7 (27-33) pg MCHC 34.2 (32-36) g/dl RDW 13.6 (11.5-14.5) % Plt Count 223 (130-400) K/uL MPV 9.2 (7.4-10.4) fl Gran % 62.8 (47-80) % Lymphocytes % 27.3 (16-45) % Monocytes % 9.3 H (0-9) % Eosinophils % 0.4 (0-6) % Basophils % 0.2 (0-6) % Sodium 125 L (136-145) mmol/L Potassium 4.4 (3.4-4.5) mmol/L Chloride 88 L (98-107) mmol/L Carbon Dioxide 20.0 L (22-29) mmol/L Anion Gap 17.0 H (7-16) BUN 13 (8-23) mg/dL Creatinine 1.1 H (0.5-0.9) mg/dL Estimated GFR 50 mL/min Random Glucose 91 (74-109) mg/dL Lactic Acid 1.2 (0.5-2.2) mmol/L Calcium 9.7 (8.8-10.2) mg/dL Total Bilirubin 0.60 (0.2-1.0) mg/dL AST 36 H (10.0-35.0) U/L ALT 24 (<33) U/L Alkaline Phosphatase 118 H (35-104) U/L Troponin T (0-0.010) ng/mL Total Protein 7.9 (6.6-8.7) g/dL Albumin 4.7 (4.0-5.0) g/dL Globulin 3.2 (1.4-4.8) gm/dL Albumin/Globulin Ratio 1.5 (1.1-1.8) Lipase 30 (13-60) U/L Urine Color Urine Appearance Urine pH (5.0-8.0) Ur Specific [place] (1.002-1.030) Urine Protein (NEGATIVE) Urine Glucose (UA) (NEGATIVE) Urine Ketones (NEGATIVE) Urine Blood (NEGATIVE) Urine Nitrite (NEGATIVE) Urine Bilirubin (NEGATIVE) Urine Urobilinogen (0.20 - 1.00) E.U./dL Ur Leukocyte Esterase (NEGATIVE) 05/01/17 05/01/17 Range/Units 12:10 13:15 WBC (4.2-12.2) K/uL RBC (3.80-5.40) M/uL Hgb (11.6-16.0) gm/dl Hct (35.0-47.0) % MCV (81-97) fl MCH (27-33) pg MCHC (32-36) g/dl RDW (11.5-14.5) % Plt Count (130-400) K/uL MPV (7.4-10.4) fl Gran % (47-80) % Lymphocytes % (16-45) % Monocytes % (0-9) % Eosinophils % (0-6) % Basophils % (0-6) % Sodium (136-145) mmol/L Potassium (3.4-4.5) mmol/L Chloride (98-107) mmol/L Carbon Dioxide (22-29) mmol/L Anion Gap (7-16) BUN (8-23) mg/dL Creatinine (0.5-0.9) mg/dL Estimated GFR mL/min Random Glucose (74-109) mg/dL Lactic Acid (0.5-2.2) mmol/L Calcium (8.8-10.2) mg/dL Total Bilirubin (0.2-1.0) mg/dL AST (10.0-35.0) U/L ALT (<33) U/L Alkaline Phosphatase (35-104) U/L Troponin T < 0.010 (0-0.010) ng/mL Total Protein (6.6-8.7) g/dL Albumin (4.0-5.0) g/dL Globulin (1.4-4.8) gm/dL Albumin/Globulin Ratio (1.1-1.8) Lipase (13-60) U/L Urine Color Yellow Urine Appearance Clear Urine pH 6.0 (5.0-8.0) Ur Specific [place] 1.010 (1.002-1.030) Urine Protein Negative (NEGATIVE) Urine Glucose (UA) Negative (NEGATIVE) Urine Ketones Negative (NEGATIVE) Urine Blood Negative (NEGATIVE) Urine Nitrite Negative (NEGATIVE) Urine Bilirubin Negative (NEGATIVE) Urine Urobilinogen 0.2 (0.20 - 1.00) E.U./dL Ur Leukocyte Esterase Negative (NEGATIVE) Disposition Disposition: Admit Clinical Impression: Hyponatremia, Hallucinations Disposition: Still a Patient at [facility] Decision to Admit: Admit from ER Decision to Admit Date: 05/01/17 Decision to Admit Time: 15:15 Forms: Patient Portal Access Quality - Quality Measures Quality Measures: N/A - Blood Pressure Screening Does Patient Have Any of the Following: Active Dx of HTN Blood Pressure Classification: Hypertensive Reading Systolic Measurement: 151 Diastolic Measurement: 68 Screening for High Blood Pressure: Patient Exclusion, Hx of HTN [G9744]
[2017-05-01] MEDS ORDERED: ACETAMINOPHEN 500 MG TABLET PO PRN (16:12)
[2017-05-01] MEDS ORDERED: 0.9 % SODIUM CHLORIDE 1000ML 1,000 ML IV PRN (16:57)
[2017-05-01] MEDS: POTASSIUM CHLORIDE 20 MEQ TABLET PO SCH (21:42)
[2017-05-01] MEDS: MEMANTINE HCL 10 MG TABLET PO SCH (21:42)
[2017-05-01] MEDS: SIMVASTATIN 20 MG TABLET PO SCH (21:42)
[2017-05-01] MEDS: LISINOPRIL 20 MG TABLET PO SCH (21:42)
[2017-05-01] MEDS ORDERED: METFORMIN 500 MG TABLET PO SCH (22:00)
[2017-05-01 23:06] LABS: OSMOLALITY,URINE 302 mOsm/kg (250-1200)
[2017-05-01 23:35] LABS: OSMOLALITY,SERUM 259 mOsm/kg (280-295)
[2017-05-02] MEDS ORDERED: HALOPERIDOL LACTATE 5 MG/ML VIAL IM ONE ×2 (03:50→04:39)
--- NOTE | 2017-05-02 04:07 | History & Physical ---
History of Present Illness - Date of Service Date of Service for History & Physical: 05/02/17 - History of Present Illness Admitting Diagnosis: hyponatremia and hallucinations History of Present Illness: Ms. Aguilar is a 87 y/o female with history of Alzheimer's dementia, hypertension and diabetes mellitus II who presented to the ED with acute change in mentation. At baseline the patient is confused and has significant memory deficits and functional impairment. She live with her brother and [id number]-[id number] who are her primary caregivers and POA. per her family, she has become increasingly confused, combative and non-cooperative over the past few days. They initally thought that she might have a UTI as she has behaved similarly so they took her to her PCP who prescribed a curse of Bactrim. The patient then began having loose, watery bowel movements, nausea and vomiting. On arriving to [facility] the patient's labs revealed metabolic derangement with markedly reduced serum sodium, elevated anion gap and acute kidney injury. She was given bolus IV fluids and admitted for electrolyte repletion. On examination in the ED the patient was notably calm but unable to answer questions appropriately. Travel Screening - Travel/Exposure Within Last 30 Days Have you traveled within the last 30 days?: No - Travel/Exposure Within Last Year Have you traveled outside the [place] in the last year?: No - Additonal Travel Details Have you been exposed to anyone with a communicable illness?: No - Travel Symptoms Symptom Screening: None Review of Systems ROS unobtainable: Due to mental status (patient unable to meangfully particiapte due to AMS ) Constitutional: Reports: As per HPI. Denies: Chills, Fever, Malaise, Night sweats, Weakness, Weight change Eyes: Reports: As per HPI. Denies: Eye discharge, Eye pain, Photophobia, Vision change ENT: Reports: As per HPI. Denies: Congestion, Dental pain, Ear pain, Epistaxis , Hearing loss, Throat pain Respiratory: Reports: As per HPI. Denies: Cough, Dyspnea, Hemoptysis, Stridor, Wheezes Cardiovascular: Reports: As per HPI. Denies: Arrhythmia, Chest pain, Dyspnea on exertion, Edema, Murmurs, Orthopnea, Palpitations, Paroxysmal nocturnal dyspnea, Rheumatic Fever, Syncope Endocrine: Reports: As per HPI. Denies: Fatigue, Heat or cold intolerance, Polydipsia, Polyuria Gastrointestinal: Reports: As per HPI. Denies: Abdominal pain, Constipation, Diarrhea, Hematemesis, Hematochezia, Melena, Nausea, Vomiting Genitourinary: Reports: As per HPI. Denies: Abnormal menses, Discharge, Dyspareunia, Dysuria, Frequency, Hematuria, Incontinence, Retention, Urgency Musculoskeletal: Reports: As per HPI. Denies: Arthralgia, Back pain, Gout, Joint swelling, Myalgia, Neck pain Skin: Reports: As per HPI. Denies: Bruising, Change in color, Change in hair/ nails, Lesions, Pruritus, Rash Neurological: Reports: As per HPI. Denies: Abnormal gait, Confusion, Headache, Numbness, Paresthesias, Seizure, Tingling, Tremors, Vertigo, Weakness Psychiatric: Reports: As per HPI. Denies: Anxiety, Auditory hallucinations, Depression, Homicidal thoughts, Suicidal thoughts, Visual hallucinations Hematological/Lymphatic: Reports: As per HPI. Denies: Anemia, Blood Clots, Easy bleeding, Easy bruising, Swollen glands Past Medical History - SOCIAL HISTORY Smoking Status: Former smoker Alcohol Use: None Drug Use: None - RESPIRATORY Hx Respiratory Disorders: No - CARDIOVASCULAR Hx Cardio Disorders: Yes Hx Abnormal EKG: No Hx Cardiac Cath: No Hx Chest Pain: No Hx CHF: No Hx Deep Vein Thrombosis: No Hx Edema: No Hx Heart Attack: No Hx Hypertension: Yes Hx Hypotension: No Hx Irregular Heartbeat: No Hx Palpitations: No Hx Pacemaker/Defib: No Hx Vascular Disease: No Comment:: HYPERLIPIDEMIA - NEURO Hx Neuro Disorders: Yes Hx Brain Tumor: No Hx CVA: No Hx Dementia: Yes Hx Dizziness: No Hx Headaches: No Hx Neuropathy: No Hx Parkinson's Disease: No Hx Seizures: No Hx Speech Problem: No Hx TIA: No - GI Hx GI Disorders: Yes Hx Abdominal Pain: No Hx Celiac Disease: No Hx Crohn's Disease: No Hx Diverticulitis: No Hx GI Bleed: Yes Hx Reflux: No Hx Hepatitis/Jaundice: No Hx Hiatal Hernia: No Hx Irritable Bowel: No Hx Liver Disease: No Hx Nausea/Vomiting: No Hx Obstructive Bowel: No Hx Pancreatitis: No Hx Rectal Bleeding: No Hx Ulcer: No Hx Wt Loss/Wt Gain: No Hx of Polyps: No - Hx Genitourinary Disorders: Yes Hx Bladder Problem: No Hx Dialysis: No Hx Kidney Stones: No Hx Renal Disease: No Hx UTI: Yes - ENDOCRINE Hx Endocrine Disorders: Yes Hx Diabetes: Yes (NIDDM) Hx Thyroid Disease: No - MUSCULOSKELETAL Hx Musculoskeletal Disorders: Yes Hx Arthritis: Yes Hx Back Injury: No Hx Fibromyalgia: No Hx Gout: No Hx Musculoskeletal Disease: No Hx Osteoporosis: No - PSYCH Hx Psych Problems: Yes Hx Anxiety: Yes Hx Behavior Problems: No Hx Depression: Yes Hx Emotional Abuse: No Hx Sexual Abuse: No Hx Suicide Attempt: No Major Depressive Episode: No Feelings of Hopelessness: No - HEMATOLOGY/ONCOLOGY Hx Hematology/Oncology Disorders: No Family Medical History Any Significant Family History?: Yes Hx Cancer: Mother, Brother/Sister H&P Meds/Allergies - Allergies Allergies: Allergies Allergy/AdvReac Type Severity Reaction Status Date / Time No Known Drug Allergies Allergy Verified 11/28/16 17:02 - Home Medications Home Medications Medication Instructions Recorded Confirmed Last Taken Sulfamethoxazole/Trimethoprim 1 each PO BID 05/01/17 05/01/17 04/30/17 [Bactrim Ds Tablet] Previous Rx's Medication Instructions Recorded Acetaminophen [Tylenol 500Mg Tab] 500 mg PO Q6H PRN 11/30/16 Magnesium Oxide [Mag Ox] 400 mg PO DAILY #30 tab 11/30/16 - Active Medications Active Medications: Current Medications Acetaminophen (Tylenol 500mg Tab) 1,000 mg PO Q6H PRN PRN Reason: PAIN/TEMP Amlodipine Besylate (Norvasc) 10 mg PO DAILY [facility] Chlorthalidone (Chlorthalidone) 50 mg PO DAILY [facility] Clonidine HCl (Catapres Tts-1) 1 each TD WEEKLY [facility] Haloperidol Lactate (Haldol) 0.5 mg IM NOW ONE Stop: 05/02/17 03:51 Last Admin: 05/02/17 03:52 Dose: 0.5 mg Sodium Chloride () 1,000 mls @ 50 mls/hr IV .Q20H PRN PRN Reason: LARGE VOLUME IV Isosorbide Mononitrate (Imdur) 30 mg PO DAILY [facility] Lisinopril (Zestril) 20 mg PO QHS [facility] Last Admin: 05/01/17 21:42 Dose: 20 mg Memantine (Namenda) 5 mg PO BID [facility] Last Admin: 05/01/17 21:42 Dose: 5 mg Metformin HCl (Glucophage Ir) 500 mg PO BID [facility] Last Admin: 05/01/17 21:42 Dose: Not Given Pantoprazole Sodium (Protonix) 40 mg PO DAILYAC [facility] Potassium Chloride (Klor-Con) 20 meq PO BID [facility] Last Admin: 05/01/17 21:42 Dose: 20 meq Simvastatin (Zocor) 40 mg PO QHS [facility] Last Admin: 05/01/17 21:42 Dose: 40 mg Physical Exam - Vital Signs Vital Signs: Vital Signs - Last 24 Hrs Temp Pulse Pulse Resp BP BP Pulse Ox 05/02/17 02:00 97.3 F L 78 16 138/91 96 05/01/17 21:36 98.6 F 81 16 144/65 95 05/01/17 21:00 81 16 05/01/17 16:35 18 05/01/17 16:13 80 16 127/76 95 05/01/17 16:05 97.0 F L 75 18 138/72 97 - General General Appearance: Alert, Cooperative, Mild distress Limitations: No limitations - Head Head exam: Normal inspection - Eye Eye exam: Normal appearance, PERRL, EOMI Pupils: Normal accommodation - ENT ENT exam: Normal exam, Mucous membranes moist, Normal external ear exam, Normal orophraynx Ear exam: Normal external inspection. negative: External canal tenderness Nasal Exam: Normal inspection. negative: Discharge, Sinus tenderness Mouth exam: Normal external inspection, Tongue normal Teeth exam: Normal inspection. negative: Dental caries Throat exam: Normal inspection. negative: Tonsillar erythema, Tonsillar exudate - Neck Neck exam: Normal inspection, Full ROM. negative: Tenderness - Respiratory Respiratory exam: Normal lung sounds bilaterally. negative: Respiratory distress - Cardiovascular Cardiovascular Exam: Regular rate, Normal rhythm, Normal heart sounds Peripheral Pulses: 2+: Radial (R), Radial (L), Dorsalis Pedis (R), Dorsalis Pedis (L) - GI/Abdominal GI/Abdominal exam: Soft, Normal bowel sounds. negative: Tenderness - Rectal Rectal exam: Deferred - exam: Deferred - Extremities Extremities exam: Normal inspection, Full ROM, Normal capillary refill. negative: Tenderness - Back Back exam: Reports: Normal inspection, Full ROM. Denies: Muscle spasm, Rash noted, Tenderness - Neurological Neurological exam: Alert, Altered (confused and not oriented to time, place or person), Normal gait - Psychiatric Psychiatric exam: Normal affect, Normal mood, Other (hallucinating) - Skin Skin exam: Dry, Intact, Normal color, Warm Results - Labs Result Diagrams: 05/01/17 12:10 05/01/17 12:10 Labs Last 24 Hours: Laboratory Results - last 24 hr 05/01/17 17:01 POC Glucose 84 VTE H&P Assessment - Risk for VTE Risk for VTE: No Risk Level: Very Low Risk Assessment Date: 05/02/17 Risk Assessment Time: 04:19 VTE Orders Placed or Will Be Placed: No VTE Reason for No Prophylaxis: Not Indicated Plan - Inpatient Certification Inpatient Certification: Admit to inpatient care: Based on my medical assessment, after consideration of patient's risk factors (age, co-morbidities and patient presenting symptoms and acuity), I expect that this patient will remain in the hospital greater than or equal to two midnights and that the services needed warrant inpatient care because: Patient Risk Factors: Altered mental status, debility, fall Estimated length of stay: 3 days The patient may reasonably be expected to be discharged or transferred to a hospital within 96 hours after admission to [facility]. Services needed: Home care/ visiting nurse I certify that my determination is in accordance with my understanding of Medicare requirements for reasonable and necessary inpatient services. - Detailed Diagnosis and Plan (1) Altered mental status Current Visit: Yes Status: Acute Base Code: R41.82 - ALTERED MENTAL STATUS, UNSPECIFIED Comment: - acute chage in mental status on chronic dementia. - likely as a result of electrolyte disturbance. No acute changes on CT head w/ o contrast. - repletion of fluids w/ NS 0.9%, Haldol for agitation (2) Hyponatremia Current Visit: Yes Status: Acute Base Code: E87.1 - HYPO-OSMOLALITY AND HYPONATREMIA Comment: - hypovolemic hyponatremia due to vomiting/diarrhea - fluid repletion with NS 0.9% @ 50cc/hr, correction of 5-7 Meq of the next 12- 24 hours. Slow correction to avoid central pontine mylenosis. Serum/Urine Osmo pending - repeat electrolytes Q12H hours, neurochecks Q4H (3) Acute renal injury due to hypovolemia Current Visit: Yes Status: Acute Base Code: N17.9 - ACUTE KIDNEY FAILURE, UNSPECIFIED; E86.1 - HYPOVOLEMIA Comment: - NIMESH due to dehydration Cr 1.1, not sure of pt's baseline - cont to replete fluid losses, avoid nephrtoxic medications. - d/c Bactrim and hold Metformin dosing - repeat electrolytes Q12H hours (4) Dehydration Current Visit: No Status: Acute Base Code: E86.0 - DEHYDRATION Comment: - due to vomiting and diarrhea - pt recieved NS bolus in ED, cont repletion (5) Dementia Current Visit: No Status: Acute Qualifiers: Dementia type: Alzheimer's disease Dementia behavioral disturbance: without behavioral disturbance Base Code: F03.90 - UNSPECIFIED DEMENTIA WITHOUT BEHAVIORAL DISTURBANCE Comment: - advanced dementia with severe agitation - cont Namenda as ordered, will order Haldol 0.5mg for acute agitation - Fall precuations and frequent verbal cueing. (6) Diabetes mellitus type 2, controlled Current Visit: Yes Status: Acute Base Code: E11.9 - TYPE 2 DIABETES MELLITUS WITHOUT COMPLICATIONS Comment: - serum glucose 84, - hold Metformin 2/2 to NIMESH - accuchecks BIDAC, will order low dose sliding scale. Diabetic diet ordered (7) Hypertension Current Visit: No Status: Acute Qualifiers: Hypertension type: essential hypertension Qualified Code(s): I10 - Essential (primary) hypertension Base Code: I10 - ESSENTIAL (PRIMARY) HYPERTENSION Comment: - BP controlled on Norvasc, Chlorthalidone, Lisinopril, Catapres patch to change on 05/03 (8) DVT prophylaxis Current Visit: Yes Status: Acute Base Code: [id number] - Comment: - Fall/ amulation risk - no pharmacological prophylaxis - SCDs ordered to be used while in bed. (9) Code status needs review Current Visit: Yes Status: Acute Base Code: [id number] - Comment: - Discussed briefly with her brother who has POA. - Will update if there is a change of status. - Disposition Patient will require Q12H lab draws for correction of electrolytes. SW would be appreciated for home services as family appears to be struggling with care.
[2017-05-02 06:49] LABS: CREATININE 1.1 mg/dL (0.5-0.9)
--- NOTE | 2017-05-02 07:18 | CT SCAN REPORT ---
EXAM: HEAD CT WITHOUT CONTRAST HISTORY: INCREASING CONFUSION, FALL, NAUSEA, VOMITING THREE DAYS. TECHNIQUE: Contiguous axial images from the cerebral convexities to the foramen magnum were obtained without contrast. Comparison: Head CT 12/03/15. Encounter: Initial. Hand dominance: Unknown. FINDINGS: Mild generalized atrophy of the brain. Moderate decreased attenuation in the subcortical and periventricular white matter of the cerebral hemispheres. No CT evidence of acute infarct. The ventricles, basal cisterns, and sulci are within normal limits. The osseous structures and paranasal sinuses are unremarkable. Bilateral lens implants. IMPRESSION: 1. NO ACUTE INTRACRANIAL PROCESS. 2. MILD GENERALIZED ATROPHY OF THE BRAIN WITH MODERATE CHRONIC SMALL VESSEL ISCHEMIC CHANGE. JOB NUMBER: [id number] [facility]
[2017-05-02] MEDS: NOVOLOG FLEXPEN (INSULIN ASPART) 100 UNITS/ML SQ SCH ×2 (08:06→18:39)
[2017-05-02] MEDS ORDERED: HALOPERIDOL LACTATE 5 MG/ML VIAL IM PRN (09:17)
[2017-05-02] MEDS: CHLORTHALIDONE 25 MG TABLET PO SCH (10:20)
[2017-05-02] MEDS: POTASSIUM CHLORIDE 20 MEQ TABLET PO SCH ×2 (10:20→21:59)
[2017-05-02] MEDS: MEMANTINE HCL 10 MG TABLET PO SCH ×2 (10:20→21:59)
[2017-05-02] MEDS: PANTOPRAZOLE SODIUM 40 MG TABLET PO SCH (10:23)
[2017-05-02] MEDS: ISOSORBIDE MONONITRATE 30 MG TAB.ER.24H PO SCH (11:10)
[2017-05-02] MEDS: AMLODIPINE BESYLATE 5MG TAB PO SCH (11:10)
--- NOTE | 2017-05-02 14:36 | Rehab Evaluation ---
Patient Information - Patient Information Diagnosis: hyponatremia & hallucinations Ordered Treatment: OT Evaluate and Treat Status: Initial Evaluation Surgery: No Past Medical/Surgical Hx: PAST MEDICAL/SURGICAL HISTORY Past Surgical History CHOLECYSTECTOMY PMH - Respiratory Hx Respiratory Disorders No PMH - Cardiovascular Hx Cardiovascular Disorders Yes Hx Abnormal EKG No Hx Cardiac Catheterization No Hx Chest Pain No Hx Congestive Heart Failure No Hx Deep Vein Thrombosis No Hx Edema No Hx Heart Attack No Hx Hypertension Yes Hx Hypotension No Hx Irregular Heartbeat No Hx Palpitations No Hx Pacemaker/Defibrillator No Hx Vascular Disease No Hx Transient Ischemic Attacks No (TIA) Comment: HYPERLIPIDEMIA PMH - Neuro Hx Neurological Disorders Yes Hx Brain Tumor No Hx Cerebrovascular Accident No Hx Dementia Yes Hx Dizziness No Hx Headaches No Hx Neuropathy No Hx Parkinson's Disease No Hx Seizures No Hx Speech Problem No Hx Syncope No Hx Transient Ischemic Attacks No (TIA) PMH - GI Hx Gastrointestinal Disorders Yes Hx Abdominal Pain No Hx Celiac Disease No Hx Crohn's Disease No Hx Diverticulitis No Hx Gastrointestinal Bleed Yes Hx Gastroesophageal Reflux No Hx Hepatitis/Jaundice No Hx Hiatal Hernia No Hx Irritable Bowel No Hx Liver Disease No Hx Nausea/Vomiting No Hx Obstructive Bowel No Hx Pancreatitis No Hx Rectal Bleeding No Hx Ulcer No Hx Weight Loss/Weight Gain No PMH - Hx Genitourinary Disorders Yes Hx Bladder Problem No Hx Dialysis No Hx Kidney Stones No Hx Renal Disease No Hx Urinary Tract Infection Yes PMH - Endocrine Hx Endocrine Disorders Yes Hx Diabetes Yes: NIDDM Hx Thyroid Disease No PMH - Musculoskeletal Hx Musculoskeletal Disorders Yes Hx Arthritis Yes Hx Back Injury No Hx Fibromyalgia No Hx Gout No Hx Musculoskeletal Disease No Hx Osteoporosis No PMH - Psych Hx Psychiatric Problems Yes Hx Anxiety Yes Hx Behavior Problems No Hx Depression Yes Hx Emotional Abuse No Hx Sexual Abuse No Hx Suicide Attempt No Major Depressive Episode No Feelings of Hopelessness No PMH - Hematology/Oncology Hx Hematology/Oncology No Disorders Premorbid Status: Detail (Pt. received assistance from brother & flbiqi-ex-dsu ( whom she lives with) for I/ADL activities, including functional ambulation, dressing, bathing, feeding, and toileting d/t poor cognition/STM. Pt. stated she stood in the shower, and occasionally used 2WW for mobility.) Social History: Detail (Pt. lives with brother & [id number] in a 1 story home. Pt. has a 2WW. (per SW report).) Precautions: [place], Fall (poor standing and sitting balance), Other (Poor cognitive level of functioning. Pt. able to follow simple, 1-step commands. Allow extra time to process info/respond. Pt. is fearful of falling. Pt. was also lethargic d/t meds and recent hx of not sleeping well.) - Time With Patient Total Time Spent With Patient (Min): 25 Objective Data - Pain Pain Present: Yes (Pt. stated some pain in R hip during supine to sit transition , and stomach pain during sit to supine transition. Pt. also voiced R shd pain w / shd flexion above 90 degrees.) - Mental Status Patient Orientation: Person (Pt. recognized who she is, but was unable to state her birthday, and believed she was in [place] (where she grew up[place] - ROM Not within normal limits (BUE: Shd Flex to approx. 100 degrees, abd to 90. Pt. unable to reach back of her head to comb/wash hair. Elbow flex/ext) - Strength/Tone Not within normal limits (Pt.'s L product advisor strength was moderately weaker than R product advisor strength while squeezing therapist's fingers. BUE shd strength not tested d /t poor AROM (MMT 2/5; unable to sustain AROM at 90 degrees shd flex). Elbow flex/ext MMT 3+/5.) - Bed Mobility Needs Assist (Lack of awareness of environment/unfamiliar surroundings. Pt. required assistance to manipulate environment to pt's advantage. Pt. required CGA to transition supine to sit EOB d/t poor sitting balance, and difficulty initially reaching feet to floor.) - Transfers Needs Assist (Sit <> stand EOB to walker CGA x2. Pt. demo. posterior lean, and requires support to stabilize walker during transition so she doesn't fall backwards. Pt. assisted by pushing off bed and grabbed walker with min VC as she stood.) - Balance Balance Sitting: Fair (Pt. able to sit EOB ind if feet are supported on floor. LOB when reaching up (leans backwards), or with any resistance. Pt. required BUE support while marching to keep balance.) Balance Standing: Poor - ADL's/IADL's Detail (Pt. required mod assist to pull briefs up/down while standing during toileting on 3-in-1 commode; pt. had difficulty letting go of walker with 1 hand to handle briefs. CGA x2 stand pivot transfer from EOB to commode. Pt. voiced she felt too ill to ambulate to bathroom at the time. Pt. brushed her hair seated EOB with min assist to reach back of head. Pt. required max VC to use appropriate hand placement on walker, and remember to use walker during transitions.) Therapy Assessment - Therapy Assessment Detail (Pt. would benefit from skilled OT services to maximize safety and independence with basic self-care skills and improve activity tolerance. Pt. would benefit from [facility] facility with memory care experience, and potentially in- home OT evaluation to advise in environmental modifications for maximizing safety.) Patient Education - Patient Education Barriers To Learning: Cognitive/Verbal, Cognitive/Written Problem List - Problem List Occupational Therapy Problem List: Detail (Decreased safety and independence with ADL's, impaired BUE AROM, decreased BUE strength, poor balance, poor activity tolerance/endurance, & impaired ability to ambulate household distances.) Goals - Goals Occupational Therapy Goals: 1) Maximize safety and independence with ADL's ( including bathing, dressing, & toileting). 2) Increase BUE AROM and strength to improve functional independence with ADL's. 3) If caregivers/family present , provide educ. on potential use of cueing, adaptive strategies, visual aids, etc. to maximize independence with ADL's. Prognosis - Prognosis Moderate Plan - Plan Occupational Therapy Plan: Provide in-pt. OT services 2-3x's per week Mon-Fri during typical rehab business hours.
--- NOTE | 2017-05-02 14:42 | Rehab Evaluation ---
Patient Information - Patient Information Diagnosis: Hyponutremia, Hallucinations Ordered Treatment: PT Evaluate and Treat Status: Initial Evaluation Past Medical/Surgical Hx: PAST MEDICAL/SURGICAL HISTORY Past Surgical History CHOLECYSTECTOMY PMH - Respiratory Hx Respiratory Disorders No PMH - Cardiovascular Hx Cardiovascular Disorders Yes Hx Abnormal EKG No Hx Cardiac Catheterization No Hx Chest Pain No Hx Congestive Heart Failure No Hx Deep Vein Thrombosis No Hx Edema No Hx Heart Attack No Hx Hypertension Yes Hx Hypotension No Hx Irregular Heartbeat No Hx Palpitations No Hx Pacemaker/Defibrillator No Hx Vascular Disease No Hx Transient Ischemic Attacks No (TIA) Comment: HYPERLIPIDEMIA PMH - Neuro Hx Neurological Disorders Yes Hx Brain Tumor No Hx Cerebrovascular Accident No Hx Dementia Yes Hx Dizziness No Hx Headaches No Hx Neuropathy No Hx Parkinson's Disease No Hx Seizures No Hx Speech Problem No Hx Syncope No Hx Transient Ischemic Attacks No (TIA) PMH - GI Hx Gastrointestinal Disorders Yes Hx Abdominal Pain No Hx Celiac Disease No Hx Crohn's Disease No Hx Diverticulitis No Hx Gastrointestinal Bleed Yes Hx Gastroesophageal Reflux No Hx Hepatitis/Jaundice No Hx Hiatal Hernia No Hx Irritable Bowel No Hx Liver Disease No Hx Nausea/Vomiting No Hx Obstructive Bowel No Hx Pancreatitis No Hx Rectal Bleeding No Hx Ulcer No Hx Weight Loss/Weight Gain No PMH - Hx Genitourinary Disorders Yes Hx Bladder Problem No Hx Dialysis No Hx Kidney Stones No Hx Renal Disease No Hx Urinary Tract Infection Yes PMH - Endocrine Hx Endocrine Disorders Yes Hx Diabetes Yes: NIDDM Hx Thyroid Disease No PMH - Musculoskeletal Hx Musculoskeletal Disorders Yes Hx Arthritis Yes Hx Back Injury No Hx Fibromyalgia No Hx Gout No Hx Musculoskeletal Disease No Hx Osteoporosis No PMH - Psych Hx Psychiatric Problems Yes Hx Anxiety Yes Hx Behavior Problems No Hx Depression Yes Hx Emotional Abuse No Hx Sexual Abuse No Hx Suicide Attempt No Major Depressive Episode No Feelings of Hopelessness No PMH - Hematology/Oncology Hx Hematology/Oncology No Disorders Premorbid Status: Detail (The patient stated that at home she walked with a walker at times but mostly walked without assistive device.) Social History: Detail (The patient was able to describe her living environment. The patient lives with her brother and ypibns-bl-ihe in a one story home . The patient stated her bathroom had a regular tub/shower combination without a seat and a regular toilet. 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 The patient did follow simple commands.) - Visual Perception Appears within normal limits for therapeutic activities - ROM Within normal limits (The patient's LE AROM was WFL. Refer to OT note for UE AROM.) - Strength/Tone Not within normal limits (The patient's LE strength was not formally assessed secondary to the patient had difficulty understanding use of manual resistance. The patient's strength was at least antigravity ( the patient was able to march, kick and tap her feet).) - Bed Mobility Independent (The patient completed supine to sit with minimal PA of 1 and sit to supine independently. The patient was able to scoot up in bed in a sitting position, independently.) - Transfers Independent (The patient required CG for sit to stand. The patient tended to push posteriorly with sit to stand.) - Balance Balance Sitting: Fair (The patient was able to sit without support however when lifting her arms the patient leaned posteriorly. The patient exhibited decreased seated balance reactions to posterior and lateral perturbations. The patient was able to maintain her balance when brushing her hair.) Balance Standing: Poor (The patient required minimal PA/CG of 1 to maintain balance in standing, both with and without walker.) - Gait Detail (The patient refused to ambulate, stating "I can't do it" The patient took two to three pivot steps to and from commode with use of wheeled walker with CG/minimal PA of 2 and maximal verbal cues to keep hands on walker .) Therapy Assessment - Therapy Assessment Detail (The patient followed simple commands consistently and acheived bed mobility and transfers with minimal PA/CG. Feel the patient is a good subacute rehabilitation candidate to improve functional level.) Problem List - Problem List Physical Therapy Problem List: Detail (1) Cognitive status 2) Balance deficits in sitting and standing 3)Assistance with ambulation and mobility) Goals - Goals Physical Therapy Goals: 1) The patient will ambulate with assistive device 50 feet with CG/SBA with verbal cues for safety. 2) The patient will complete all transfers with supervision. 3) Improve balance in sitting and standing to Fair level Prognosis - Prognosis Moderate Plan - Plan Physical Therapy Plan: PT 1 time a day M-F for gait training, transfer training , bed mobilty and balance exercises.
[2017-05-02] MEDS: LISINOPRIL 20 MG TABLET PO SCH (21:59)
[2017-05-02] MEDS: SIMVASTATIN 20 MG TABLET PO SCH (22:01)
[2017-05-03] MEDS: PANTOPRAZOLE SODIUM 40 MG TABLET PO SCH (06:19)
[2017-05-03] MEDS: NOVOLOG FLEXPEN (INSULIN ASPART) 100 UNITS/ML SQ SCH ×3 (08:43→17:20)
[2017-05-03] MEDS ORDERED: CLONIDINE TTS-0.1MG PATCH TD SCH (10:00)
--- NOTE | 2017-05-03 10:28 | Physical Therapy Tx Note ---
Physical Therapy Tx Note - Treatment Note Physical Therapy Tx Note: Detail (Patient not seen for treatment due to nursing giving patient a shower.) Physical Therapy Problem List: Detail (1) Cognitive status 2) Balance deficits in sitting and standing 3)Assistance with ambulation and mobility) Physical Therapy Goals: 1) The patient will ambulate with assistive device 50 feet with CG/SBA with verbal cues for safety. 2) The patient will complete all transfers with supervision. 3) Improve balance in sitting and standing to Fair level Physical Therapy Plan: PT 1 time a day M-F for gait training, transfer training , bed mobilty and balance exercises.
--- NOTE | 2017-05-03 11:01 | Physician Progress Note ---
Subjective - Date Date of Physician Progress Note: 05/03/17 - Subjective Subjective Comment: Patient appears calm and cooperative this morning. She is still very confused. Objective - Vital Signs Vital Signs: Vital Signs - Last 24 Hrs Temp Pulse Resp BP Pulse Ox 05/03/17 06:00 76 18 169/81 98 05/03/17 02:00 98.9 F 80 18 162/76 99 05/02/17 22:00 98.1 F 72 16 148/83 96 05/02/17 21:00 72 16 05/02/17 18:38 99.0 F 67 16 114/57 95 - General General Appearance: Alert, Cooperative, Mild distress Limitations: No limitations - Head Head exam: Normal inspection - Eye Eye exam: Normal appearance, PERRL, EOMI Pupils: Normal accommodation - ENT ENT exam: Normal exam, Mucous membranes moist, Normal external ear exam, Normal orophraynx Ear exam: Normal external inspection. negative: External canal tenderness Nasal Exam: Normal inspection. negative: Discharge, Sinus tenderness Mouth exam: Normal external inspection, Tongue normal Teeth exam: Normal inspection. negative: Dental caries Throat exam: Normal inspection. negative: Tonsillar erythema, Tonsillar exudate - Neck Neck exam: Normal inspection, Full ROM. negative: Tenderness - Respiratory Respiratory exam: Normal lung sounds bilaterally. negative: Respiratory distress - Cardiovascular Cardiovascular Exam: Regular rate, Normal rhythm, Normal heart sounds Peripheral Pulses: 2+: Radial (R), Radial (L), Dorsalis Pedis (R), Dorsalis Pedis (L) - GI/Abdominal GI/Abdominal exam: Soft, Normal bowel sounds. negative: Tenderness - Rectal Rectal exam: Deferred - exam: Deferred - Extremities Extremities exam: Normal inspection, Full ROM, Normal capillary refill. negative: Tenderness - Back Back exam: Reports: Normal inspection, Full ROM. Denies: Muscle spasm, Rash noted, Tenderness - Neurological Neurological exam: Alert, Altered (confused and not oriented to time, place or person), Normal gait - Psychiatric Psychiatric exam: Normal affect, Normal mood, Other (hallucinating) - Skin Skin exam: Dry, Intact, Normal color, Warm Assessment and Plan - Assessment and Plan (1) Altered mental status Current Visit: Yes Status: Acute Base Code: R41.82 - ALTERED MENTAL STATUS, UNSPECIFIED Comment: - acute chage in mental status on chronic dementia. - improvement back to baseline mental function. - likely as a result of electrolyte disturbance. No acute changes on CT head w/ o contrast. - d/c fluids, Haldol for agitation (2) Hyponatremia Current Visit: Yes Status: Acute Base Code: E87.1 - HYPO-OSMOLALITY AND HYPONATREMIA Comment: - hypovolemic hyponatremia due to vomiting/diarrhea - d/c fluid repletion, Na @ 135 today. - repeat electrolytes Q12H hours (3) Acute renal injury due to hypovolemia Current Visit: Yes Status: Acute Base Code: N17.9 - ACUTE KIDNEY FAILURE, UNSPECIFIED; E86.1 - HYPOVOLEMIA Comment: - NIMESH due to dehydration Cr 1.0 - avoid nephrotoxic medications. - cont to hold Metformin dosing (4) Dehydration Current Visit: No Status: Acute Base Code: E86.0 - DEHYDRATION (5) Diabetes mellitus type 2, controlled Current Visit: Yes Status: Acute Base Code: E11.9 - TYPE 2 DIABETES MELLITUS WITHOUT COMPLICATIONS Comment: - serum glucose 108 - hold Metformin 2/2 to NIMESH - accuchecks BIDAC, will order low dose sliding scale. Diabetic diet ordered (6) Hypertension Current Visit: No Status: Acute Qualifiers: Hypertension type: essential hypertension Qualified Code(s): I10 - Essential (primary) hypertension Base Code: I10 - ESSENTIAL (PRIMARY) HYPERTENSION Comment: - BP controlled on Norvasc, Chlorthalidone, Lisinopril, Catapres patch to change on 05/03 (7) DVT prophylaxis Current Visit: Yes Status: Acute Base Code: [id number] - Comment: - Fall/ ambulation risk - no pharmacological prophylaxis - SCDs ordered to be used while in bed. (8) Code status needs review Current Visit: Yes Status: Acute Base Code: [id number] - Comment: - updated documentation shows DNR code status. - Disposition Disposition: D/C to rehab facility tomorrow at 2:30 SW arranged. Results - Labs Result Diagrams: 05/01/17 12:10 05/03/17 11:13 Labs Last 24 Hours: Laboratory Results - last 24 hr 05/02/17 05/03/17 21:20 07:43 POC Glucose 279 H 109 DVT/PE Assessment - Risk for VTE Risk for VTE: No Risk Level: Very Low Risk Assessment Date: 05/02/17 Risk Assessment Time: 04:19 VTE Orders Placed or Will Be Placed: No VTE Reason for No Prophylaxis: Not Indicated - Active Medicaitons Current Medications: Current Medications Acetaminophen (Tylenol 500mg Tab) 1,000 mg PO Q6H PRN PRN Reason: PAIN/TEMP Amlodipine Besylate (Norvasc) 10 mg PO DAILY [facility] Last Admin: 05/02/17 11:10 Dose: Not Given Chlorthalidone (Chlorthalidone) 50 mg PO DAILY [facility] Last Admin: 05/02/17 10:20 Dose: 50 mg Clonidine HCl (Catapres Tts-1) 1 each TD WEEKLY [facility] Haloperidol Lactate (Haldol) 1 mg IM Q6H PRN PRN Reason: Agitation Sodium Chloride () 1,000 mls @ 50 mls/hr IV .Q20H PRN PRN Reason: LARGE VOLUME IV Insulin Aspart (Novolog Flexpen) 1 unit SQ TIDINS [facility] PRN Reason: Protocol Last Admin: 05/03/17 08:43 Dose: Not Given Isosorbide Mononitrate (Imdur) 30 mg PO DAILY [facility] Last Admin: 05/02/17 11:10 Dose: Not Given Lisinopril (Zestril) 20 mg PO QHS [facility] Last Admin: 05/02/17 21:59 Dose: 20 mg Memantine (Namenda) 5 mg PO BID [facility] Last Admin: 05/02/17 21:59 Dose: 5 mg Pantoprazole Sodium (Protonix) 40 mg PO DAILYAC [facility] Last Admin: 05/03/17 06:19 Dose: 40 mg Potassium Chloride (Klor-Con) 20 meq PO BID [facility] Last Admin: 05/02/17 21:59 Dose: 20 meq Simvastatin (Zocor) 40 mg PO QHS [facility] Last Admin: 05/02/17 22:01 Dose: 40 mg AMI Plan - Labs Result Diagrams: 05/01/17 12:10 05/03/17 11:13
[2017-05-03] MEDS: CHLORTHALIDONE 25 MG TABLET PO SCH ×2 (11:45→22:09)
[2017-05-03] MEDS: ISOSORBIDE MONONITRATE 30 MG TAB.ER.24H PO SCH (11:46)
[2017-05-03] MEDS: MEMANTINE HCL 10 MG TABLET PO SCH ×2 (11:46→21:49)
[2017-05-03] MEDS: POTASSIUM CHLORIDE 20 MEQ TABLET PO SCH ×2 (11:46→22:10)
[2017-05-03] MEDS: AMLODIPINE BESYLATE 5MG TAB PO SCH (11:47)
--- NOTE | 2017-05-03 13:15 | RADIOLOGY REPORT ---
EXAM: CHEST, TWO VIEWS HISTORY: REHAB PLACEMENT ASSESSMENT. TECHNIQUE: Upright PA and lateral views of the chest were obtained. Comparison: Two view chest radiographic examination dated 08/26/16. FINDINGS: The heart projects mildly enlarged, but without pulmonary venous hypertension. No confluent air space opacity is seen nor is there costophrenic angle blunting or pneumothorax. Minimal linear scarring versus atelectasis in the lateral left lung base. There are degenerative changes scattered throughout the thoracic spine with S- shaped thoracolumbar scoliosis. Surgical clips are present in the right upper quadrant. On the lateral view the lungs appear hyperinflated consistent with COPD. IMPRESSION: 1. NO EVIDENCE OF ACUTE CARDIOPULMONARY DISEASE. 2. THE LUNGS APPEAR HYPERINFLATED CONSISTENT WITH COPD. JOB NUMBER: [id number] MTDD
[2017-05-03] MEDS: LISINOPRIL 20 MG TABLET PO SCH (21:49)
[2017-05-03] MEDS: SIMVASTATIN 20 MG TABLET PO SCH (21:50)
[2017-05-04] MEDS: PANTOPRAZOLE SODIUM 40 MG TABLET PO SCH (06:43)
--- NOTE | 2017-05-04 06:53 | Discharge Summary ---
Providers Discharge Summary Date: 05/04/17 Date of admission: 05/01/17 15:46 Attending physician: Tu Villasenor Primary care physician: Tu Villasenor Consults: Consult Orders 05/01/17 16:41 Consult - Case Management Now Comment: Reason For Exam: cognitive deficits Physical Exam - Vital Signs Vital Signs: Vital Signs - Last 24 Hrs Temp Pulse Resp BP Pulse Ox 05/04/17 06:00 98.2 F 74 16 138/79 96 05/04/17 03:46 98.2 F 81 16 153/72 95 05/03/17 21:44 98.6 F 82 16 130/69 96 05/03/17 21:00 16 05/03/17 18:00 98.4 F 81 18 105/61 99 05/03/17 14:00 97.9 F 70 18 142/74 95 05/03/17 10:00 97.1 F L 60 18 139/69 97 - General General Appearance: Alert, Cooperative, Mild distress Limitations: No limitations - Head Head exam: Normal inspection - Eye Eye exam: Normal appearance, PERRL, EOMI Pupils: Normal accommodation - ENT ENT exam: Normal exam, Mucous membranes moist, Normal external ear exam, Normal orophraynx Ear exam: Normal external inspection. negative: External canal tenderness Nasal Exam: Normal inspection. negative: Discharge, Sinus tenderness Mouth exam: Normal external inspection, Tongue normal Teeth exam: Normal inspection. negative: Dental caries Throat exam: Normal inspection. negative: Tonsillar erythema, Tonsillar exudate - Neck Neck exam: Normal inspection, Full ROM. negative: Tenderness - Respiratory Respiratory exam: Normal lung sounds bilaterally. negative: Respiratory distress - Cardiovascular Cardiovascular Exam: Regular rate, Normal rhythm, Normal heart sounds Peripheral Pulses: 2+: Radial (R), Radial (L), Dorsalis Pedis (R), Dorsalis Pedis (L) - GI/Abdominal GI/Abdominal exam: Soft, Normal bowel sounds. negative: Tenderness - Rectal Rectal exam: Deferred - exam: Deferred - Extremities Extremities exam: Normal inspection, Full ROM, Normal capillary refill. negative: Tenderness - Back Back exam: Reports: Normal inspection, Full ROM. Denies: Muscle spasm, Rash noted, Tenderness - Neurological Neurological exam: Alert, Altered (confused and not oriented to time, place or person), Normal gait. negative: Oriented X3 - Psychiatric Psychiatric exam: Normal affect, Normal mood, Other (hallucinating) - Skin Skin exam: Dry, Intact, Normal color, Warm Hospitalization - Hospitalization Admission Diagnosis: hyponatremia and hallucinations - Problem List/Discharge Diagnosis (1) Altered mental status Current Visit: Yes Status: Acute Base Code: R41.82 - ALTERED MENTAL STATUS, UNSPECIFIED Comment: - acute chage in mental status on chronic dementia. - improvement back to baseline mental function. - likely as a result of electrolyte disturbance. No acute changes on CT head w/ o contrast. - d/c fluids, Haldol for agitation (2) Hyponatremia Current Visit: Yes Status: Acute Base Code: E87.1 - HYPO-OSMOLALITY AND HYPONATREMIA Comment: - hypovolemic hyponatremia - improved - Na 125-->129-->134, target repletion 5-7 meq/24 hrs - d/c IV fluids, encourage PO intake (3) Acute renal injury due to hypovolemia Current Visit: Yes Status: Acute Base Code: N17.9 - ACUTE KIDNEY FAILURE, UNSPECIFIED; E86.1 - HYPOVOLEMIA Comment: - NIMESH due to dehydration Cr 1.0 - avoid nephrotoxic medications. - resume Metormin dosing on d/c (4) Diabetes mellitus type 2, controlled Current Visit: Yes Status: Acute Base Code: E11.9 - TYPE 2 DIABETES MELLITUS WITHOUT COMPLICATIONS Comment: - serum glucose 108 - hold Metformin 2/2 to NIMESH - accuchecks BIDAC, will order low dose sliding scale. Diabetic diet ordered (5) Hypertension Current Visit: No Status: Acute Discharge Diagnosis: Hypertension type: essential hypertension Qualified Code(s): I10 - Essential (primary) hypertension Base Code: I10 - ESSENTIAL (PRIMARY) HYPERTENSION Comment: - BP controlled on Norvasc, Chlorthalidone, Lisinopril, Catapres patch changed yesterday. - consider d/c Chlorthalidone (6) DVT prophylaxis Current Visit: Yes Status: Acute Base Code: [id number] - Comment: - Fall/ ambulation risk - no pharmacological prophylaxis - SCDs ordered to be used while in bed. (7) Code status needs review Current Visit: Yes Status: Acute Base Code: [id number] - Comment: - updated documentation shows DNR code status. - Disposition D/C to rehab facility today at 2:30 - Hospitalization Course Hospital Course: Ms. Aguilar is a 87 y/o female with history of Alzheimer's dementia, hypertension and diabetes mellitus II who presented to the ED with acute change in mentation. At baseline the patient is confused and has significant memory deficits and functional impairment. She live with her brother and wfcduh-ay-boi who are her primary caregivers and POA. per her family, she has become increasingly confused, combative and non-cooperative over the past few days. They initally thought that she might have a UTI as she has behaved similarly so they took her to her PCP who prescribed a curse of Bactrim. The patient then began having loose, watery bowel movements, nausea and vomiting. On arriving to [facility] the patient's labs revealed metabolic derangement with markedly reduced serum sodium, elevated anion gap and acute kidney injury. She was given bolus IV fluids and admitted for electrolyte repletion. On examination in the ED the patient was notably calm but unable to answer questions appropriately. 12/6 am: The patient was tired and slept most of the morning. She was given 1mg Haldol IM due to increasing agitation and combative behavior overnight. She was much more calm and restful after medication. She was arousable later in the afternoon and appeared back to her baseline function. Labs were drawn again showing correction of Na to 129. All other labs were within normal limits. The patient was put on sliding scale insulin and Metformin held due to NIMESH. 05/03 - On bedside examination the patient was awake, alert but not oriented. per nursing report she was able to eat her breakfast and lunch without a problem. She is cooperative and has no new complaints. She had PT/OT evaluation and chest xray in preparation for placement in a rehab facility. The patient's family are agreeable to her going to a facility before returning home. Procedures: Imaging and X-Rays 05/03/17 09:16 CHEST 2 VIEWS [RAD] Stat Abnormal Labs: Abnormal Lab Results 05/02/17 05/02/17 05/03/17 Range/Units 06:08 21:20 11:13 Sodium 129 L 134 L (136-145) mmol/L Potassium 4.8 H (3.4-4.5) mmol/L Chloride 95 L (98-107) mmol/L Carbon Dioxide 20.0 L (22-29) mmol/L Creatinine 1.1 H 1.0 H (0.5-0.9) mg/dL POC Glucose 279 H (70-110) mg/dL Condition at Discharge: (1) Good Discharge Medications - Discharge Medications Home Medications: Ambulatory Orders Metformin HCl [Glucophage Ir] 500 mg PO BID 12/14/13 [Last Taken 04/30/17] Memantine HCl [Namenda] 5 mg PO BID 09/29/15 [Last Taken 04/30/17] Clonidine [Catapres-Tts 1] 1 each TD WEEKLY 03/18/16 [Last Taken 04/26/17] Meloxicam [Mobic] 15 mg PO DAILY 03/18/16 [Last Taken 04/30/17] Isosorbide Mononitrate [Imdur] 30 mg PO DAILY 06/24/16 [Last Taken 04/30/17] Omeprazole 20 mg PO DAILY 06/24/16 [Last Taken 04/30/17] Simvastatin 40 mg PO QHS 06/24/16 [Last Taken 04/30/17] Acetaminophen [Tylenol 500Mg Tab] 500 mg PO Q6H PRN 11/30/16 [Last Taken ] Magnesium Oxide [Mag Ox] 400 mg PO DAILY #30 tab 11/30/16 [Last Taken 04/30/17] Amlodipine Besylate [Norvasc] 10 mg PO DAILY 12/22/16 [Last Taken 04/30/17] Chlorthalidone 50 mg PO DAILY 12/22/16 [Last Taken 04/30/17] Lisinopril 20 mg PO QHS 12/22/16 [Last Taken 04/30/17] Potassium Chloride [Klor-Con M20] 20 meq PO BID 12/22/16 [Last Taken 04/30/17] Sulfamethoxazole/Trimethoprim [Bactrim Ds Tablet] 1 each PO BID 05/01/17 [Last Taken 04/30/17] Discharge Plan - Discharge Instructions Activity at Discharge: Increase Activity as Tolerated Diet at Discharge: Diabetic Diet Additional Instructions: Patient to be discharged to rehab facility this afternoon at 2:30pm. SW has made arrangements for transportation to the facility and family has been updated. The patient's PCP Dr. Villasenor has been informed of plans. - Pt to resume home medications as prescribed. - No new medications or dosing changes on this admission. Quality Measures - Quality Measures Quality Measures: Advance Directives, Documentation of Current Medications in Medical Record, Elder Maltreatment Screen and Follow-Up Plan, Screening for High Blood Pressure and F/U Documented - Current Medications Quality Measure: Measure #130: Documentation of Current Medications Documentation of Current Medications: <Current Medications Documented/Reviewed> [[id number]] - Blood Pressure Screening Quality Measure: Screening for High Blood Pressure and Follow-Up Documented Does Patient Have Any of the Following: Active Dx of HTN Blood Pressure Classification: Pre-Hypertensive BP Reading Systolic Measurement: 127 Diastolic Measurement: 76 Screening for High Blood Pressure: Patient Exclusion, Hx of HTN [[id number]] - Advance Directives Quality Measure: Measure #47: Care Plan Advance Directives Established: No Advance Directives Information Provided To Patient: Yes Advance Directives on File: No Living Will: No Power of Lead Printer: Yes Power of Lead Printer Name: "Jenaro" Advance Care Planning: <Care Plan/Decision Maker Documented; Discussed & Documented> [[id number]] - Elder Abuse Suspicion Index Screening: Elder Abuse Suspicion Index Screening Rely on people for bathing, dressing, shopping, banking, etc: Yes Prevented from getting food, clothes, medication, etc: No Made to feel shamed or threatened by someone: No Forced to sign papers or use money against will: No Feel afraid, touched in ways not wanted or hurt physically: No Poor eye contact, withdrawn, malnourished, cuts or bruises: No Screening Result: Negative result EASI Reference Information: Maame PADILLA, Radha C, Cesilia D, Mauro Oliva.Development and validation of a tool to assist physicians identification of elder abuse: The Elder Abuse Suspicion Index (EASI ). Journal of Elder Abuse and Neglect, 2008; 20 (3): 276-300. - Elder Maltreatment Screen Quality Measures: Elder Maltreatment Screen and Follow-Up Plan Elder Maltreatment Screen: <Negative, No Follow-Up Plan Required> [G8734]
[2017-05-04 07:17] LABS: BLOOD UREA NITROGEN 22 mg/dL (8-23); CREATININE 0.7 mg/dL (0.5-0.9); EST GLOMERULAR FILTRATION RATE > 60 mL/min; GLUCOSE,RANDOM 111 mg/dL (74-109)
[2017-05-04] MEDS: NOVOLOG FLEXPEN (INSULIN ASPART) 100 UNITS/ML SQ SCH ×2 (08:47→13:25)
[2017-05-04] MEDS: MEMANTINE HCL 10 MG TABLET PO SCH (09:13)
[2017-05-04] MEDS: POTASSIUM CHLORIDE 20 MEQ TABLET PO SCH (09:13)
[2017-05-04] MEDS: AMLODIPINE BESYLATE 5MG TAB PO SCH (09:14)
[2017-05-04] MEDS: CHLORTHALIDONE 25 MG TABLET PO SCH (09:14)
[2017-05-04] MEDS: ISOSORBIDE MONONITRATE 30 MG TAB.ER.24H PO SCH (09:14)
== END 2017-05-04 14:57 | disposition home or self-care (01) | DRG 641 ==
LOC: ER 11:53 → MEDSURG 15:46
PROVIDERS: ADMIT Internal Medicine; ATTEND Internal Medicine
DX: E87.1 Hypo-osmolality and hyponatremia (principal); N17.9 Acute kidney failure, unspecified; R11.2 Nausea with vomiting, unspecified; R19.7 Diarrhea, unspecified; F03.90 Unspecified dementia, unspecified severity, without behavioral disturbance, psychotic disturbance, mood disturbance, and anxiety; E78.5 Hyperlipidemia, unspecified; R44.3 Hallucinations, unspecified; F02.81 Dementia in other diseases classified elsewhere, unspecified severity, with behavioral disturbance; E78.00 Pure hypercholesterolemia, unspecified; E11.9 Type 2 diabetes mellitus without complications; M19.90 Unspecified osteoarthritis, unspecified site; F41.8 Other specified anxiety disorders; R41.82 Altered mental status, unspecified; E86.0 Dehydration; I10 Essential (primary) hypertension; G30.9 Alzheimer's disease, unspecified; Z87.19 Personal history of other diseases of the digestive system; Z87.891 Personal history of nicotine dependence; Z79.84 Long term (current) use of oral hypoglycemic drugs
CPT/HCPCS: 36416; 70450; 71020; 80048; 80053; 81003; 82948; 83605; 83690; 84484; 85025; 96365; 96366; 97165; 99223; 99233; 99239; 99285; J1630; J2550

== ENCOUNTER 2017-12-12 16:21 | Inpatient (IN) | payer MEDICARE ==
--- NOTE | 2017-12-12 17:47 | Emergency Department Record ---
History of Present Illness - General Chief Complaint: Altered Mental Status Stated Complaint: NOT EATING,HULLUCINATION,DAY SLEEPING Time Seen by Provider: 12/12/17 17:40 Source: Patient, RN notes reviewed Mode of Arrival: Wheelchair - History of Present Illness Initial Comments: patient is more confused and hallucinating more and dementia for 6-6 years and getting worse and one week ago treated for UTI finishing bactrim. Not eating yesterday or drinking today. No pain. MD Complaint: Altered mental status Onset/Timin -: Week(s) Associated Symptoms: Denies other symptoms - Related Data Previous Rx's Medication Instructions Recorded Acetaminophen [Tylenol 500Mg Tab] 500 mg PO Q6H PRN 11/30/16 Allergies Allergy/AdvReac Type Severity Reaction Status Date / Time No Known Drug Allergies Allergy Verified 12/12/17 16:28 Travel Screening - Travel/Exposure Within Last 30 Days Have you traveled within the last 30 days?: No - Travel/Exposure Within Last Year Have you traveled outside the [place] in the last year?: No - Additonal Travel Details Have you been exposed to anyone with a communicable illness?: No - Travel Symptoms Symptom Screening: None Review of Systems Reviewed: No additional complaints except as noted below Constitutional: Reports: As per HPI. Denies: Chills, Fever, Malaise, Night sweats, Weakness, Weight change Eyes: Reports: As per HPI. Denies: Eye discharge, Eye pain, Photophobia, Vision change ENT: Reports: As per HPI. Denies: Congestion, Dental pain, Ear pain, Epistaxis , Hearing loss, Throat pain Respiratory: Reports: As per HPI. Denies: Cough, Dyspnea, Hemoptysis, Stridor, Wheezes Cardiovascular: Reports: As per HPI. Denies: Arrhythmia, Chest pain, Dyspnea on exertion, Edema, Murmurs, Orthopnea, Palpitations, Paroxysmal nocturnal dyspnea, Rheumatic Fever, Syncope Endocrine: Reports: As per HPI. Denies: Fatigue, Heat or cold intolerance, Polydipsia, Polyuria Gastrointestinal: Reports: As per HPI. Denies: Abdominal pain, Constipation, Diarrhea, Hematemesis, Hematochezia, Melena, Nausea, Vomiting Genitourinary: Reports: As per HPI. Denies: Abnormal menses, Discharge, Dyspareunia, Dysuria, Frequency, Hematuria, Incontinence, Retention, Urgency Musculoskeletal: Reports: As per HPI. Denies: Arthralgia, Back pain, Gout, Joint swelling, Myalgia, Neck pain Skin: Reports: As per HPI. Denies: Bruising, Change in color, Change in hair/ nails, Lesions, Pruritus, Rash Neurological: Reports: As per HPI, Confusion, Weakness. Denies: Abnormal gait, Headache, Numbness, Paresthesias, Seizure, Tingling, Tremors, Vertigo Psychiatric: Reports: As per HPI, Auditory hallucinations, Visual hallucinations. Denies: Anxiety, Depression, Homicidal thoughts, Suicidal thoughts Hematological/Lymphatic: Reports: As per HPI. Denies: Anemia, Blood Clots, Easy bleeding, Easy bruising, Swollen glands Past Medical History - SOCIAL HISTORY Smoking Status: Former smoker Alcohol Use: None Drug Use: None - RESPIRATORY Hx Respiratory Disorders: No - CARDIOVASCULAR Hx Cardio Disorders: Yes Hx Abnormal EKG: No Hx Cardiac Cath: No Hx Chest Pain: No Hx CHF: No Hx Deep Vein Thrombosis: No Hx Edema: No Hx Heart Attack: No Hx Hypertension: Yes Hx Hypotension: No Hx Irregular Heartbeat: No Hx Palpitations: No Hx Pacemaker/Defib: No Hx Vascular Disease: No Comment:: HYPERLIPIDEMIA - NEURO Hx Neuro Disorders: Yes Hx Brain Tumor: No Hx CVA: No Hx Dementia: Yes Hx Dizziness: No Hx Headaches: No Hx Neuropathy: No Hx Parkinson's Disease: No Hx Seizures: No Hx Speech Problem: No Hx TIA: No - GI Hx GI Disorders: Yes Hx Abdominal Pain: No Hx Celiac Disease: No Hx Crohn's Disease: No Hx Diverticulitis: No Hx GI Bleed: Yes Hx Reflux: No Hx Hepatitis/Jaundice: No Hx Hiatal Hernia: No Hx Irritable Bowel: No Hx Liver Disease: No Hx Nausea/Vomiting: No Hx Obstructive Bowel: No Hx Pancreatitis: No Hx Rectal Bleeding: No Hx Ulcer: No Hx Wt Loss/Wt Gain: No Hx of Polyps: No - Hx Genitourinary Disorders: Yes Hx Bladder Problem: No Hx Dialysis: No Hx Kidney Stones: No Hx Renal Disease: No Hx UTI: Yes - ENDOCRINE Hx Endocrine Disorders: Yes Hx Diabetes: Yes (NIDDM) Hx Thyroid Disease: No - MUSCULOSKELETAL Hx Musculoskeletal Disorders: Yes Hx Arthritis: Yes Hx Back Injury: No Hx Fibromyalgia: No Hx Gout: No Hx Musculoskeletal Disease: No Hx Osteoporosis: No - PSYCH Hx Psych Problems: Yes Hx Anxiety: Yes Hx Behavior Problems: No Hx Depression: Yes Hx Emotional Abuse: No Hx Sexual Abuse: No Hx Suicide Attempt: No - HEMATOLOGY/ONCOLOGY Hx Hematology/Oncology Disorders: No Family Medical History Any Significant Family History?: Yes Hx Cancer: Mother, Brother/Sister Physical Exam - General General Appearance: Mild distress - Head Head exam: Normal inspection - Eye Eye exam: Normal appearance, PERRL Pupils: Normal accommodation - ENT ENT exam: Normal exam, Mucous membranes moist, Normal external ear exam, Normal orophraynx, TM's normal bilaterally Ear exam: Normal external inspection. negative: External canal tenderness Nasal Exam: Normal inspection. negative: Discharge, Sinus tenderness Mouth exam: Normal external inspection, Tongue normal Teeth exam: Normal inspection. negative: Dental caries Throat exam: Normal inspection. negative: Tonsillar erythema, Tonsillar exudate - Neck Neck exam: Normal inspection, Full ROM. negative: Tenderness - Respiratory Respiratory exam: Normal lung sounds bilaterally. negative: Respiratory distress - Cardiovascular Cardiovascular Exam: Regular rate, Normal rhythm, Normal heart sounds - GI/Abdominal GI/Abdominal exam: Soft, Normal bowel sounds. negative: Tenderness - Rectal Rectal exam: Deferred - exam: Deferred - Extremities Extremities exam: Normal inspection, Full ROM, Normal capillary refill. negative: Tenderness - Back Back exam: Reports: Normal inspection, Full ROM. Denies: Muscle spasm, Rash noted, Tenderness - Neurological Neurological exam: Alert, Normal gait, Oriented X3, Reflexes normal - Psychiatric Psychiatric exam: Normal affect, Normal mood - Skin Skin exam: Dry, Intact, Normal color, Warm Course Vital Signs 12/12/17 12/12/17 16:33 17:22 Temperature 97.8 F Pulse Rate 57 L Pulse Rate [ 66 Pulse Ox Probe] Respiratory 16 18 Rate Blood Pressure 127/60 Blood Pressure 143/63 [Left Arm] Pulse Ox 97 97 Medical Decision Making - Data Complexity MDM Data: Labs Ordered and/or Reviewed (sodium 120, glucose 45), X-Ray Ordered and/or Reviewed (ct head abd chest pending) - Lab Data Result diagrams: 12/12/17 16:40 12/12/17 16:40 Disposition Clinical Impression: Dehydration, Hyponatremia, Hypoglycemia Altered mental status Qualifiers: Altered mental status type: disorientation Qualified Code(s): R41.0 - Disorientation, unspecified Diabetes mellitus type 2, controlled Qualifiers: Diabetes mellitus fci insulin use: without remote computer terminal operator use Diabetes mellitus complication status: without complication Qualified Code(s): E11.9 - Type 2 diabetes mellitus without complications Decision to Admit: Admit from ER Condition: (2) Stable Instructions: Altered Mental Status (ED) Forms: Patient Portal Access Quality - Quality Measures Quality Measures: N/A - Blood Pressure Screening Does Patient Have Any of the Following: No Blood Pressure Classification: Pre-Hypertensive BP Reading Systolic Measurement: 127 Diastolic Measurement: 60 Screening for High Blood Pressure: < Pre-Hypertensive BP, F/U Documented > [ [id number]] Pre-Hypertensive Follow-up Interventions: Referral to alternative/primary care provider.
[2017-12-12] MEDS ORDERED: 0.9 % SODIUM CHLORIDE 1000ML 1,000 ML IV ONE (17:50)
[2017-12-12 18:02] LABS: BASO % 0.1 % (0-6); EOS % 1.5 % (0-6); GRAN % 70.8 % (47-80); HEMATOCRIT 32.5 % (35.0-47.0); HEMOGLOBIN 10.6 gm/dl (11.6-16.0); LYMPH % 19.4 % (16-45); MEAN CORPUSCULAR HGB CONC 32.6 g/dl (32-36); MEAN PLATELET VOLUME 10.2 fl (7.4-10.4); MONO % 8.2 % (0-9); PLATELET COUNT 209 K/uL (130-400); RED BLOOD COUNT 3.57 M/uL (3.80-5.40); WHITE BLOOD COUNT W/O DIFF 6.9 K/uL (4.2-12.2)
[2017-12-12 18:06] LABS: URINE APPEARANCE CLEAR; URINE BILIRUBIN NEGATIVE (NEGATIVE); URINE BLOOD NEGATIVE (NEGATIVE); URINE COLOR YELLOW; URINE GLUCOSE (UA) NEGATIVE (NEGATIVE); URINE KETONE NEGATIVE (NEGATIVE); URINE LEUKOCYTE ESTERASE NEGATIVE (NEGATIVE); URINE NITRITE NEGATIVE (NEGATIVE); URINE PROTEIN NEGATIVE (NEGATIVE); URINE UROBILINOGEN 0.2 E.U./dL (0.20 - 1.00)
[2017-12-12 18:06] LABS: MEAN CORPUSCULAR HEMOGLOBIN 29.6 pg (27-33)
[2017-12-12 18:13] LABS: BILIRUBIN,TOTAL < 0.20 mg/dL (0.2-1.0); BLOOD UREA NITROGEN 17 mg/dL (8-23); CREATININE 1.7 mg/dL (0.5-0.9); EST GLOMERULAR FILTRATION RATE 30 mL/min; TOTAL PROTEIN 6.9 g/dL (6.6-8.7)
[2017-12-12 18:14] LABS: PROTHROMBIN TIME (PATIENT) 10.5 SECONDS (9.5-12.1)
[2017-12-12 18:18] LABS: ALB/GLOB RATIO 1.8 (1.1-1.8); ALBUMIN 4.4 g/dL (4.0-5.0); ALKALINE PHOSPHATASE 101 U/L (35-104); ALT/SGPT 11 U/L (<33); AST/SGOT 23 U/L (10.0-35.0)
[2017-12-12 18:20] LABS: ACETAMINOPHEN < 5.0 ug/mL (10.0-30.0); SALICYLATE < 0.3 mg/dL (2.8-20)
[2017-12-12 18:33] LABS: GLUCOSE,RANDOM 45 mg/dL (74-109)
[2017-12-12] MEDS ORDERED: DEXTROSE 50 % IVP 50 ML DISP.SYRIN IVP ONE ×2 (18:33→18:35)
[2017-12-12] MEDS ORDERED: ACETAMINOPHEN 325 MG TAB PO PRN (19:46)
[2017-12-12] MEDS: 0.9 % SODIUM CHLORIDE 1000ML 1,000 ML IV PRN (20:34)
[2017-12-12] MEDS: LISINOPRIL 20 MG TABLET PO SCH (22:09)
[2017-12-12] MEDS: MEMANTINE HCL 10 MG TABLET PO SCH (22:09)
[2017-12-13] MEDS: 0.9 % SODIUM CHLORIDE 1000ML 1,000 ML IV PRN (05:43)
[2017-12-13] MEDS: PANTOPRAZOLE SODIUM 40 MG TABLET PO SCH (06:21)
[2017-12-13 07:26] LABS: HEMATOCRIT 28.7 % (35.0-47.0); HEMOGLOBIN 9.3 gm/dl (11.6-16.0); MEAN CELL VOLUME 91.7 fl (81-97); MEAN CORPUSCULAR HEMOGLOBIN 29.7 pg (27-33); MEAN CORPUSCULAR HGB CONC 32.4 g/dl (32-36); MEAN PLATELET VOLUME 9.3 fl (7.4-10.4); PLATELET COUNT 191 K/uL (130-400); RED BLOOD COUNT 3.13 M/uL (3.80-5.40); RED CELL DISTRIBUTION WIDTH 13.6 % (11.5-14.5); WHITE BLOOD COUNT W/O DIFF 4.7 K/uL (4.2-12.2)
[2017-12-13 07:30] LABS: CREATININE 1.3 mg/dL (0.5-0.9)
--- NOTE | 2017-12-13 07:43 | RADIOLOGY REPORT ---
EXAM: PORTABLE CHEST HISTORY: DIFFICULTY BREATHING. TECHNIQUE: A portable frontal view of the chest was obtained. Comparison: 05/03/17 chest x-ray. FINDINGS: Cardiomegaly with atheromatous change of the thoracic aorta. Osteopenia. No pneumothorax. Mild pulmonary vascular congestion. IMPRESSION: CARDIOMEGALY WITH MILD PULMONARY VASCULAR CONGESTION. JOB NUMBER: [id number] MTDD
--- NOTE | 2017-12-13 07:45 | CT SCAN REPORT ---
EXAM: CT OF THE BRAIN HISTORY: NOT EATING. TECHNIQUE: CT of the brain without contrast was obtained. Comparison: Prior CT of the brain from 12/03/15. FINDINGS: The globes are intact. Mucosal thickening and polyps of the maxillary sinuses bilaterally. No displaced or depressed skull fracture. No intra or extraaxial hemorrhage. CT is limited for evaluation of acute infarct. No CT evidence for large or territorial acute infarct. Diffuse atrophy with small vessel ischemic change. No mass or midline shift. IMPRESSION: ATROPHY. SMALL VESSEL ISCHEMIC CHANGE. JOB NUMBER: [id number] MTDD
[2017-12-13] MEDS: MEMANTINE HCL 10 MG TABLET PO SCH ×2 (09:40→21:18)
[2017-12-13] MEDS: ISOSORBIDE MONONITRATE 30 MG TAB.ER.24H PO SCH (09:40)
[2017-12-13] MEDS: CHLORTHALIDONE 25 MG TABLET PO SCH (09:40)
[2017-12-13] MEDS: AMLODIPINE BESYLATE 5MG TAB PO SCH (09:40)
[2017-12-13] MEDS: ENOXAPARIN 40 MG/0.4 ML SYR SQ SCH (09:41)
[2017-12-13] MEDS: MAGNESIUM OXIDE 400 MG TABLET PO SCH (21:17)
[2017-12-13] MEDS: LISINOPRIL 20 MG TABLET PO SCH (21:17)
[2017-12-13] MEDS ORDERED: PNEUM 13-VAL/PF 0.5 ML IM ONE (23:20)
[2017-12-14] MEDS: PANTOPRAZOLE SODIUM 40 MG TABLET PO SCH (06:13)
[2017-12-14 06:33] LABS: BASO % 0.5 % (0-6); EOS % 2.4 % (0-6); GRAN % 65.4 % (47-80); HEMATOCRIT 33.4 % (35.0-47.0); HEMOGLOBIN 10.7 gm/dl (11.6-16.0); LYMPH % 21.8 % (16-45); MEAN CELL VOLUME 92.3 fl (81-97); MEAN PLATELET VOLUME 9.1 fl (7.4-10.4); MONO % 9.9 % (0-9); PLATELET COUNT 204 K/uL (130-400); RED BLOOD COUNT 3.62 M/uL (3.80-5.40)
[2017-12-14 06:36] LABS: MEAN CORPUSCULAR HEMOGLOBIN 29.5 pg (27-33)
[2017-12-14 06:43] LABS: CREATININE 1.1 mg/dL (0.5-0.9)
[2017-12-14] MEDS: CHLORTHALIDONE 25 MG TABLET PO SCH (09:21)
[2017-12-14] MEDS: AMLODIPINE BESYLATE 5MG TAB PO SCH (09:21)
[2017-12-14] MEDS: MAGNESIUM OXIDE 400 MG TABLET PO SCH ×2 (09:21→21:17)
[2017-12-14] MEDS: ENOXAPARIN 40 MG/0.4 ML SYR SQ SCH (09:21)
[2017-12-14] MEDS: ISOSORBIDE MONONITRATE 30 MG TAB.ER.24H PO SCH (09:22)
[2017-12-14] MEDS: MEMANTINE HCL 10 MG TABLET PO SCH ×2 (09:22→21:17)
--- NOTE | 2017-12-14 09:41 | History and Physical Report ---
DATE OF EVALUATION: 12/12/2017 DATE OF ADMISSION: 12/12/2017 CHIEF COMPLAINT: Confusion, decreased level of consciousness. HISTORY OF THE PRESENT ILLNESS: This 87-year-old female came to the Emergency Department because of increased confusion, increased hallucinations. Has a history of dementia for 5-6 years and getting worse over the last week. She was seen by her family doctor, Dr. Villasenor, and treated by Deb for a urinary tract infection, finishing her Bactrim today. She is not eating or drinking today. She denies any pain. Family said this is not like her. She was seen in the Emergency Department by myself with a diagnosis of hyponatremia, confusion, hypoglycemia, diabetes mellitus type 2. Her sugar in the Emergency Department was 45. She was given 1 amp of D50, her metformin was stopped, and her sugars have stabilized. She did have some orange juice in the middle of the night because it dropped down to about 65. It came up nicely. She was given IV fluids. CT of the brain showing no small-vessel ischemic changes. Chest x-ray showed cardiomegaly with mild pulmonary vascular congestion. Clinically, she had dehydration and possible increased lung markings. Her sodium in the Emergency Department was 122. It came up to 130 the next day with IV fluids and potassium supplements. She just had IV normal saline. PAST MEDICAL HISTORY: Dementia for 5-6 years, hypercholesterolemia, GERD, diabetes mellitus type 2, arthritis, and coronary artery disease. PAST SURGICAL HISTORY: Cholecystectomy. MEDICATIONS ON ADMISSION: Simvastatin 40 mg at bedtime, potassium chloride 20 mEq b.i.d., omeprazole 20 mg daily, metformin 500 mg b.i.d., Namenda 5 mg b.i.d., Mobic 15 mg daily, lisinopril 20 mg daily, Imdur 30 mg daily, C, Tyanrhuc-FOV-0 per week, chlorthalidone 50 mg daily, amlodipine 10 mg daily, Tylenol 500 mg every 6 hours p.r.n. ALLERGIES: No known drug allergies. FAMILY PSYCHOSOCIAL HISTORY: She is a former smoker. She stopped in 1984. No alcohol or drug use. History was obtained from the chart and the family. Mother has cancer. Brother and sister have cancer. REVIEW OF SYSTEMS: HEENT: No upper respiratory infection symptoms, cough, cold, or congestion. Cardiovascular: No chest pain, but hard to get a history. No palpitations or arrhythmias. Respiratory: No cough, cold or congestion. Gastrointestinal: No nausea, vomiting, diarrhea, black stools, or bloody stools. Genitourinary: No dysuria, hematuria, frequency, or burning on urination. Musculoskeletal: She does have arthritis. Moving all 4 extremities. Neurologic: She has dementia. She moves all 4 extremities to verbal commands, however she is confused and not acting appropriately. She is confused to time and location, but not her name. Gynecologic: No abnormal lumps in the breasts or abnormal vaginal bleeding. Endocrine: She does have diabetes type 2. Integument: No rash, ulcers, changes in moles, or yellow skin. PHYSICAL EXAMINATION: VITAL SIGNS: Temperature 99.3, pulse 96, blood pressure 186/94, respiratory rate 16, pulse ox 96% on room air. HEENT: Pupils equal, round, and reactive to light and accommodation. Extraocular muscles intact. Throat is clear. Nose is clear. NECK: Supple. No jugular venous distention. No hepatojugular reflux. No carotid bruits. Thyroid is smooth. CARDIOVASCULAR: Regular rate and rhythm without murmurs, clicks, rubs, or gallops. RESPIRATORY: Clear to auscultation and percussion. ABDOMEN: Soft, nontender, no hepatosplenomegaly. No masses or tenderness. Bowel sounds active. No bruits. EXTREMITIES: No pitting edema. No cyanosis or clubbing. Full range of motion. Peripheral pulses good. BREASTS: Deferred. GYNECOLOGIC: Deferred. RECTAL: Deferred. NEUROLOGIC: She is confused, hallucination, but answering questions yes/no with slow response. Cranial nerves II-XII intact. No gross deficits. Sensation normal. Strength normal. Deep tendon reflexes equal bilaterally. Babinski is negative. MENTAL STATUS: Alert. Disoriented to person and time. IMPRESSION: 1. Decreased level of consciousness. 2. Hyponatremia. 3. Dementia. 4. Hypertension. 5. Weakness. 6. Diabetes mellitus type 2. 7. Hypoglycemia. 8. Hypercholesterolemia. 9. GERD. 10. Arthritis. 11. Coronary artery disease. 12. Hypertension. 13. Hypomagnesemia. PLAN: IV fluids. Follow the electrolytes. IV magnesium. Further care. INPATIENT CERTIFICATION: Admit to Inpatient Care. Based on my medical assessment and after consideration of patient risk factors, age, comorbidities, and patient presenting symptoms on Acute, I expect this patient will remain in the hospital greater than or equal to 2 midnights, and the services needed warrant inpatient care because of weakness, dementia, hyponatremia, hypoglycemia, hypertension, increased confusion, and further evaluation. ESTIMATED LENGTH OF STAY: 3 days. The patient may reasonably be expected to be discharged or transferred to a hospital within 96 hours after admission to [facility]. I certify that my determination is in accordance with my understanding of Medicare requirements for reasonable and necessary inpatient services. JR
--- NOTE | 2017-12-14 11:35 | Rehab Evaluation ---
Patient Information - Patient Information Diagnosis: altered level of consciousness, hyponatremia, hypoglycemia Ordered Treatment: OT Evaluate and Treat Status: Initial Evaluation Surgery: No Past Medical/Surgical Hx: PAST MEDICAL/SURGICAL HISTORY Past Surgical History CHOLECYSTECTOMY PMH - Respiratory Hx Respiratory Disorders No PMH - Cardiovascular Hx Cardiovascular Disorders Yes Hx Abnormal EKG No Hx Cardiac Catheterization No Hx Chest Pain No Hx Congestive Heart Failure No Hx Deep Vein Thrombosis No Hx Edema No Hx Heart Attack No Hx Hypertension Yes Hx Hypotension No Hx Irregular Heartbeat No Hx Palpitations No Hx Pacemaker/Defibrillator No Hx Vascular Disease No Hx Transient Ischemic Attacks No (TIA) Comment: HYPERLIPIDEMIA PMH - Neuro Hx Neurological Disorders Yes Hx Brain Tumor No Hx Cerebrovascular Accident No Hx Dementia Yes Hx Dizziness No Hx Headaches No Hx Neuropathy No Hx Parkinson's Disease No Hx Seizures No Hx Speech Problem No Hx Syncope No Hx Transient Ischemic Attacks No (TIA) PMH - GI Hx Gastrointestinal Disorders Yes Hx Abdominal Pain No Hx Celiac Disease No Hx Crohn's Disease No Hx Diverticulitis No Hx Gastrointestinal Bleed Yes Hx Gastroesophageal Reflux No Hx Hepatitis/Jaundice No Hx Hiatal Hernia No Hx Irritable Bowel No Hx Liver Disease No Hx Nausea/Vomiting No Hx Obstructive Bowel No Hx Pancreatitis No Hx Rectal Bleeding No Hx Ulcer No Hx Weight Loss/Weight Gain No PMH - Hx Genitourinary Disorders Yes Patient No Hx Bladder Problem No Hx Dialysis No Hx Kidney Stones No Hx Renal Disease No Hx Urinary Tract Infection Yes PMH - Endocrine Hx Endocrine Disorders Yes Hx Diabetes Yes: NIDDM Hx Thyroid Disease No PMH - Musculoskeletal Hx Musculoskeletal Disorders Yes Hx Arthritis Yes Hx Back Injury No Hx Fibromyalgia No Hx Gout No Hx Musculoskeletal Disease No Hx Osteoporosis No PMH - Psych Hx Psychiatric Problems Yes Hx Anxiety Yes Hx Behavior Problems No Hx Depression Yes Hx Emotional Abuse No Hx Sexual Abuse No Hx Suicide Attempt No PMH - Hematology/Oncology Hx Hematology/Oncology No Disorders Premorbid Status: Detail (Pt lives with brother and sister in law in a one story house. Unable to formally assess premorbid status due to pts decreased cognitive status.) Precautions: [place], Fall, Other (confusion) - Time With Patient Total Time Spent With Patient (Min): 30 Treatment Procedures: Detail (OT eval low complexity) Subjective Information - Subjective Information Per Patient Objective Data - Pain Pain Present: No - Mental Status Patient Orientation: Person (Pt oriented to self, month and year of birthday, not oriented to place, month, year, age or year of birthday. Pt required ongoing cues to participate in evaluation due to confusion and hallucinations ( pt thought she had bugs in her hand and repeatedly put them in her pocket).) - Visual Perception Deficit (Pt reports she wears glasses but they were not available during evaluation. Pt demonstrated visual difficulty during ambulation with changes in the dora as she thought there were steps on the floor.) - ROM Not within normal limits (Vick shoulder AROM limited right approx. 45 degrees, left approx. 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 Decreased orientation/cognition. 2. Decreased Ind with functional mobility needed for safe and Ind self cares. 3. Decreased endurance needed for safe and Ind mobility and self cares. ) Goals - Goals Occupational Therapy Goals: 1. Pt will be oriented to location and will be Ind with cognition needed for self cares. 2. Pt will be safe and Ind with functional mobility. 3. Pt will demonstrate improved endurance to allow safe and Ind self cares and functional mobility. Prognosis - Prognosis Moderate Plan - Plan Occupational Therapy Plan: Recommend short IP rehab stay to maximize safety, endurance and Ind with self cares and functional mobility. OT will continue 2- 4 days per week while pt is inpatient.
--- NOTE | 2017-12-14 11:38 | Rehab Evaluation ---
Patient Information - Patient Information Diagnosis: altered mental status Ordered Treatment: PT Evaluate and Treat Status: Initial Evaluation History: Detail (The patient was presented into ED on 12/12 with increaed confusion. The patient was admitted to nursing floor.) Past Medical/Surgical Hx: PAST MEDICAL/SURGICAL HISTORY Past Surgical History CHOLECYSTECTOMY PMH - Respiratory Hx Respiratory Disorders No PMH - Cardiovascular Hx Cardiovascular Disorders Yes Hx Abnormal EKG No Hx Cardiac Catheterization No Hx Chest Pain No Hx Congestive Heart Failure No Hx Deep Vein Thrombosis No Hx Edema No Hx Heart Attack No Hx Hypertension Yes Hx Hypotension No Hx Irregular Heartbeat No Hx Palpitations No Hx Pacemaker/Defibrillator No Hx Vascular Disease No Hx Transient Ischemic Attacks No (TIA) Comment: HYPERLIPIDEMIA PMH - Neuro Hx Neurological Disorders Yes Hx Brain Tumor No Hx Cerebrovascular Accident No Hx Dementia Yes Hx Dizziness No Hx Headaches No Hx Neuropathy No Hx Parkinson's Disease No Hx Seizures No Hx Speech Problem No Hx Syncope No Hx Transient Ischemic Attacks No (TIA) PMH - GI Hx Gastrointestinal Disorders Yes Hx Abdominal Pain No Hx Celiac Disease No Hx Crohn's Disease No Hx Diverticulitis No Hx Gastrointestinal Bleed Yes Hx Gastroesophageal Reflux No Hx Hepatitis/Jaundice No Hx Hiatal Hernia No Hx Irritable Bowel No Hx Liver Disease No Hx Nausea/Vomiting No Hx Obstructive Bowel No Hx Pancreatitis No Hx Rectal Bleeding No Hx Ulcer No Hx Weight Loss/Weight Gain No PMH - Hx Genitourinary Disorders Yes Patient No Hx Bladder Problem No Hx Dialysis No Hx Kidney Stones No Hx Renal Disease No Hx Urinary Tract Infection Yes PMH - Endocrine Hx Endocrine Disorders Yes Hx Diabetes Yes: NIDDM Hx Thyroid Disease No PMH - Musculoskeletal Hx Musculoskeletal Disorders Yes Hx Arthritis Yes Hx Back Injury No Hx Fibromyalgia No Hx Gout No Hx Musculoskeletal Disease No Hx Osteoporosis No PMH - Psych Hx Psychiatric Problems Yes Hx Anxiety Yes Hx Behavior Problems No Hx Depression Yes Hx Emotional Abuse No Hx Sexual Abuse No Hx Suicide Attempt No PMH - Hematology/Oncology Hx Hematology/Oncology No Disorders Premorbid Status: Detail (The patient was a poor historian so house set up was not accounted. Per [employer], the patient lives in a one story house with brother and [id number].) Social History: Detail (Supportive but aging family.) Precautions: [place], Fall - Time With Patient Total Time Spent With Patient (Min): 30 Treatment Procedures: Detail (Initial Evaluation.) Subjective Information - Subjective Information Per Patient (No complaints.) Objective Data - Mental Status Patient Orientation: Person (Patient was knew her name and date of but not year, place, current month or year. The patient followed simple commands but required redirection. The patient also at times hallucinated ie: picking up bugs and put them in pocket.) - Visual Perception Deficit (The patient appeared to exhibit a perceptual deficit ie: stepping over change in dora at the enterance of her room.) - ROM Within normal limits (The patient's LE AROM was WNL. Refer to OT note for AROM in UE's.) - Strength/Tone Not within normal limits (The patient's R LE strength was 4-/5 throughout and L LE 4/5 .) - Transfers Needs Assist (The patient was able to acheive sit to stand independently , however CG is recommended due to cognitive status and patient pulling up on walker and not pushing up on surface.) - Balance Balance Sitting: Good Balance Standing: Fair (The patient's balance was fair to poor due to patient required support of surface when pulling up pants, brushing teeth or washing face.) - Gait Detail (The patient ambulated with front wheeled walker with CG for safety to bathroom 13 feet and into hallway 22 feet. The patient required maximal verbal cues to use walker with proper technique ie: not placing walker too far in front , walking inside of walker and turning walker safely.The patient was left in recliner chair with chair alarm set and tray placed in front and call light within reach.) Therapy Assessment - Therapy Assessment Detail (The patient presents with poor balance, decreased ability to complete prolonged physical activity and requirement of CG for mobility due to decreased mental status. Feel the patient would benefit from short term subacute rehabilitation to improve ability to complete prolonged activities , requirement of CG with mobility and balance.) Problem List - Problem List Physical Therapy Problem List: Detail (1) Decreased balance when completing ADL' s and mobility 2) Decreased ability to complete prolonged physical activity 3) Asssistance with mobility due to cognitive status) Goals - Goals Physical Therapy Goals: 1) The patient will ambulate household distances with supervision and minimal verbal cues for safety. 2)The patient will complete ADL 's and mobility with no signs of fatigue. 3) Formally assess the patient's balance using Tinetti Assessment Tool. 4) Evaluate bed mobilty Prognosis - Prognosis Moderate Plan - Plan Physical Therapy Plan: PT one time a day while patient remains at [facility] for gait training, transfer training, balance exercises and assessment of bed mobility. Short term subacute rehab in recommended to improve functional ability.
--- NOTE | 2017-12-14 16:47 | Discharge Note ---
VTE H&P Assessment - Risk for VTE Risk for VTE: Yes Risk Level: Moderate Risk Assessment Date: 12/12/17 Risk Assessment Time: 19:00 VTE Orders Placed or Will Be Placed: Yes Discharge Medications - Discharge Medications Home Medications: Ambulatory Orders Memantine HCl [Namenda] 5 mg PO BID 09/29/15 [Last Taken 12/12/17] Clonidine [Catapres-Tts 1] 1 each TD WEEKLY 03/18/16 [Last Taken 12/12/17] Isosorbide Mononitrate [Imdur] 30 mg PO DAILY 06/24/16 [Last Taken 12/12/17] Omeprazole 20 mg PO DAILY 06/24/16 [Last Taken 12/12/17] Simvastatin 40 mg PO QHS 06/24/16 [Last Taken 12/12/17] Acetaminophen [Tylenol 500Mg Tab] 500 mg PO Q6H PRN 11/30/16 [Last Taken ] Amlodipine Besylate [Norvasc] 10 mg PO DAILY 12/22/16 [Last Taken 12/12/17] Chlorthalidone 50 mg PO DAILY 12/22/16 [Last Taken 12/12/17] Lisinopril 20 mg PO QHS 12/22/16 [Last Taken 12/12/17] Discharge Note - Date Date of Discharge Note: 12/15/17 Disposition: [facility] Condition: (2) Stable Instructions: Altered Mental Status (ED) Additional Instructions: follow up with Dr. barrientos after out of correction discontinue mobic and potassium chloride pills Use tylenol 650 mg every 6 hours as needed for arthritis pain Referrals: ERINN PAZ C.N.M., N.P. [Primary Care Provider] - Forms: Patient Portal Access Diet at Discharge: Low Salt Diet
[2017-12-14] MEDS: LISINOPRIL 20 MG TABLET PO SCH (21:17)
[2017-12-15] MEDS: PANTOPRAZOLE SODIUM 40 MG TABLET PO SCH (06:28)
[2017-12-15 07:13] LABS: BASO % 0.4 % (0-6); HEMATOCRIT 33.6 % (35.0-47.0); HEMOGLOBIN 10.9 gm/dl (11.6-16.0); LYMPH % 24.3 % (16-45); MEAN CELL VOLUME 92.6 fl (81-97); MEAN CORPUSCULAR HGB CONC 32.4 g/dl (32-36); MONO % 10.3 % (0-9); PLATELET COUNT 227 K/uL (130-400); RED BLOOD COUNT 3.63 M/uL (3.80-5.40); WHITE BLOOD COUNT W/O DIFF 8.3 K/uL (4.2-12.2)
[2017-12-15 07:44] LABS: CREATININE 1.6 mg/dL (0.5-0.9)
[2017-12-15 09:01] LABS: URINE APPEARANCE CLEAR; URINE BILIRUBIN NEGATIVE (NEGATIVE); URINE BLOOD NEGATIVE (NEGATIVE); URINE COLOR YELLOW; URINE GLUCOSE (UA) NEGATIVE (NEGATIVE); URINE KETONE NEGATIVE (NEGATIVE); URINE LEUKOCYTE ESTERASE NEGATIVE (NEGATIVE); URINE NITRITE NEGATIVE (NEGATIVE); URINE PROTEIN NEGATIVE (NEGATIVE); URINE UROBILINOGEN 0.2 E.U./dL (0.20 - 1.00)
[2017-12-15] MEDS: CHLORTHALIDONE 25 MG TABLET PO SCH (09:12)
[2017-12-15] MEDS: MAGNESIUM OXIDE 400 MG TABLET PO SCH (09:12)
[2017-12-15] MEDS: ENOXAPARIN 40 MG/0.4 ML SYR SQ SCH (09:12)
[2017-12-15] MEDS: AMLODIPINE BESYLATE 5MG TAB PO SCH (09:12)
[2017-12-15] MEDS: ISOSORBIDE MONONITRATE 30 MG TAB.ER.24H PO SCH (09:13)
[2017-12-15] MEDS: MEMANTINE HCL 10 MG TABLET PO SCH (09:13)
--- NOTE | 2017-12-15 09:31 | Discharge Summary ---
DATE OF ADMISSION: 12/12/2017 DATE OF DISCHARGE: 12/15/2017 Attending physician: Kike Garber, DO DISCHARGE DIAGNOSES: 1. Decreased level of consciousness. 2. Hyponatremia. 3. Dehydration. 4. Hypoglycemia. 5. Diabetes mellitus type 2. 6. 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 7. Weakness, unable to get off the cart when in the emergency department. 8. Hypomagnesemia. REASON FOR HOSPITALIZATION: Confusion, decreased level of consciousness. This 87-year-old female came to the emergency department because of increased confusion, increased hallucination, has a history of dementia for 5 to 6 years and getting worse over the last week. She was seen by the family doctor, Dr. Villasenor, and treated by Candida Mercedes for a urinary tract infection. She just finished her Bactrim. She was not eating or drinking. Today she denies any pain. Family states she is not like this. She was unable to get off the cart. She was diagnosed in the emergency department with hyponatremia, confusion, hypoglycemia, diabetes mellitus type 2. Her sugar in the emergency department was 45. She was given 1 amp of D50, her Metformin was stopped and her sugars have stabilized. She did not require Metformin in the hospital. She did have some orange juice in the middle of one night because it dropped down to 65. It came up nicely. She was given IV fluids. CT of the brain did show small vessel ischemic changes. Chest x-ray showed cardiomegaly with mild pulmonary vascular congestion. Clinically she was dehydrated and possibly increased lung markings are seen on the chest x-ray. Her sodium in the emergency department was 122, it came up to 130 the next day with IV fluids and potassium supplements. SIGNIFICANT FINDINGS FROM EXAMINATION: Head CT showing small vessel ischemic changes. Chest x-ray cardiomegaly with mild pulmonary vascular congestion, clinically did not have pulmonary congestion, possibly increased lung markings are chronic. LABORATORY: Initially WBC was 6900, hemoglobin was 10.6. On the last set of labs CBC was 6000, hemoglobin was 10.7, potassium was 4.5, sodium was 133, chloride was 97, BUN is 14, creatinine is 1.1. Calcium was 9.6. Her glucoses tend to be trending back up a little bit. The last one was 137. We will watch that closely as an outpatient. Urine negative for a urinary tract infection. Troponin T was negative. Magnesium 1.5 still low, started on Mag-Ox. THERAPY PROVIDED: She was given cautious IV fluids. Her sodium corrected, her potassium corrected. She was started on oral magnesium twice a day. HOSPITAL COURSE: She was much better, improved, but still at her baseline dementia. CONDITION ON DISCHARGE: Much improved. DISCHARGE INSTRUCTIONS: Follow up with Dr. Villasenor after discharge from placement in group home. The family would like her placed in a group home for long-term care. MEDICATIONS ON DISCHARGE: 1. Tylenol p.r.n. 2. Namenda 5 mg b.i.d. 3. Zestril 20 mg per day. 4. Chlorthalidone 50 mg per day. 5. Imdur 30 mg per day. 6. Norvasc 10 mg per day. 7. Mag-Ox 400 mg b.i.d. 8. Catapres patches TTS 1 once a week. 9. Omeprazole 20 mg daily. 10. Simvastatin 40 mg at bedtime. 11. Potassium chloride 20 mEq b.i.d. 12. Stop the Metformin because her sugars were tending to run low. She may need to be restarted on that after she is eating normal meals. 13. Stop the Meloxicam . MTDD
[2017-12-19] MEDS ORDERED: CLONIDINE TTS-0.1MG PATCH TD SCH (10:00)
== END 2017-12-15 14:14 | DRG 884 ==
LOC: ER 16:21 → MEDSURG 19:37
PROVIDERS: ADMIT Emergency Medicine; ATTEND Emergency Medicine
DX: R40.4 Transient alteration of awareness (principal); E87.1 Hypo-osmolality and hyponatremia; E86.0 Dehydration; E16.2 Hypoglycemia, unspecified; E11.9 Type 2 diabetes mellitus without complications; F03.90 Unspecified dementia, unspecified severity, without behavioral disturbance, psychotic disturbance, mood disturbance, and anxiety; I10 Essential (primary) hypertension; E78.5 Hyperlipidemia, unspecified; Z87.891 Personal history of nicotine dependence
CPT/HCPCS: 83735; 85025; 85610; 80048; 80053; 36416; 82948; 81003; 84484; 71045; 70450; G0480 ×2; 80329; 85027; 90670; 99223; 99233; 99239; J1650

== ENCOUNTER 2018-06-25 16:47 | Emergency (ER) | payer BC, MEDICARE ==
[2018-06-25] MEDS ORDERED: ACYCLOVIR 200 MG CAPSULE PO ONE (17:54)
[2018-06-25 18:14] LABS: BASO % 0.3 % (0-6); EOS % 0.2 % (0-6); GRAN % 76.3 % (47-80); HEMATOCRIT 36.9 % (35.0-47.0); HEMOGLOBIN 11.9 gm/dl (11.6-16.0); LYMPH % 15.2 % (16-45); MEAN CORPUSCULAR HEMOGLOBIN 29.7 pg (27-33); MEAN CORPUSCULAR HGB CONC 32.2 g/dl (32-36); MEAN PLATELET VOLUME 10.4 fl (7.4-10.4); PLATELET COUNT 249 K/uL (130-400); RED BLOOD COUNT 4.01 M/uL (3.80-5.40); RED CELL DISTRIBUTION WIDTH 14.1 % (11.5-14.5); WHITE BLOOD COUNT W/O DIFF 11.9 K/uL (4.2-12.2)
[2018-06-25 18:30] LABS: CREATININE 1.1 mg/dL (0.5-0.9)
[2018-06-25] MEDS ORDERED: 0.9 % SODIUM CHLORIDE 1,000 ML BAG IV ONE (18:33)
--- NOTE | 2018-06-25 18:36 | Emergency Department Record ---
History of Present Illness - General Chief complaint: Facial Swelling Stated complaint: ABCESS LOWER LIP Time Seen by Provider: 06/25/18 17:46 Source: Patient, Family, RN Mode of Arrival: EMS Limitations: No limitations - History of Present Illness Initial Comments: pt was sent from [facility] for lower lip swelling. MD Complaint: Facial swelling Onset/Timin -: Days(s) Symptoms: Lip swelling Severity: Mild Treatment Prior to Arrival: None - Related Data Previous Rx's Medication Instructions Recorded Acetaminophen [Tylenol 500Mg Tab] 500 mg PO Q6H PRN 11/30/16 Acyclovir 400 mg PO Q8HR #40 tablet 06/25/18 Allergies Allergy/AdvReac Type Severity Reaction Status Date / Time Sulfa (Sulfonamide Allergy Severe VOMITING Unverified 06/25/18 15:29 Antibiotics) sulfamethoxazole Allergy Severe VOMITING Unverified 06/25/18 15:29 [From Bactrim] trimethoprim [From Bactrim] Allergy Severe VOMITING Unverified 06/25/18 15:29 Travel Screening - Travel/Exposure Within Last 30 Days Have you traveled within the last 30 days?: No - Travel/Exposure Within Last Year Have you traveled outside the [place] in the last year?: No - Additonal Travel Details Have you been exposed to anyone with a communicable illness?: No - Travel Symptoms Symptom Screening: None Review of Systems Reviewed: No additional complaints except as noted below Constitutional: Reports: As per HPI. Denies: Chills, Fever, Malaise, Night sweats, Weakness, Weight change Eyes: Reports: As per HPI. Denies: Eye discharge, Eye pain, Photophobia, Vision change ENT: Reports: As per HPI. Denies: Congestion, Dental pain, Ear pain, Epistaxis , Hearing loss, Throat pain Respiratory: Reports: As per HPI. Denies: Cough, Dyspnea, Hemoptysis, Stridor, Wheezes Cardiovascular: Reports: As per HPI. Denies: Arrhythmia, Chest pain, Dyspnea on exertion, Edema, Murmurs, Orthopnea, Palpitations, Paroxysmal nocturnal dyspnea, Rheumatic Fever, Syncope Endocrine: Reports: As per HPI. Denies: Fatigue, Heat or cold intolerance, Polydipsia, Polyuria Gastrointestinal: Reports: As per HPI. Denies: Abdominal pain, Constipation, Diarrhea, Hematemesis, Hematochezia, Melena, Nausea, Vomiting Genitourinary: Reports: As per HPI. Denies: Abnormal menses, Discharge, Dyspareunia, Dysuria, Frequency, Hematuria, Incontinence, Retention, Urgency Musculoskeletal: Reports: As per HPI. Denies: Arthralgia, Back pain, Gout, Joint swelling, Myalgia, Neck pain Skin: Reports: As per HPI. Denies: Bruising, Change in color, Change in hair/ nails, Lesions, Pruritus, Rash Neurological: Reports: As per HPI. Denies: Abnormal gait, Confusion, Headache, Numbness, Paresthesias, Seizure, Tingling, Tremors, Vertigo, Weakness Psychiatric: Reports: As per HPI. Denies: Anxiety, Auditory hallucinations, Depression, Homicidal thoughts, Suicidal thoughts, Visual hallucinations Hematological/Lymphatic: Reports: As per HPI. Denies: Anemia, Blood Clots, Easy bleeding, Easy bruising, Swollen glands Past Medical History - SOCIAL HISTORY Smoking Status: Former smoker Alcohol Use: None Drug Use: None - RESPIRATORY Hx Respiratory Disorders: No - CARDIOVASCULAR Hx Cardio Disorders: Yes Hx Abnormal EKG: No Hx Cardiac Cath: No Hx Chest Pain: No Hx CHF: No Hx Deep Vein Thrombosis: No Hx Edema: No Hx Heart Attack: No Hx Hypertension: Yes Hx Hypotension: No Hx Irregular Heartbeat: No Hx Palpitations: No Hx Pacemaker/Defib: No Hx Vascular Disease: No Comment:: HYPERLIPIDEMIA - NEURO Hx Neuro Disorders: Yes Hx Brain Tumor: No Hx CVA: No Hx Dementia: Yes Hx Dizziness: No Hx Headaches: No Hx Neuropathy: No Hx Parkinson's Disease: No Hx Seizures: No Hx Speech Problem: No Hx TIA: No - GI Hx GI Disorders: Yes Hx Abdominal Pain: No Hx Celiac Disease: No Hx Crohn's Disease: No Hx Diverticulitis: No Hx GI Bleed: Yes Hx Reflux: No Hx Hepatitis/Jaundice: No Hx Hiatal Hernia: No Hx Irritable Bowel: No Hx Liver Disease: No Hx Nausea/Vomiting: No Hx Obstructive Bowel: No Hx Pancreatitis: No Hx Rectal Bleeding: No Hx Ulcer: No Hx Wt Loss/Wt Gain: No Hx of Polyps: No - Hx Genitourinary Disorders: Yes Hx Bladder Problem: No Hx Dialysis: No Hx Kidney Stones: No Hx Renal Disease: No Hx UTI: Yes - ENDOCRINE Hx Endocrine Disorders: Yes Hx Diabetes: Yes (NIDDM) Hx Thyroid Disease: No - MUSCULOSKELETAL Hx Musculoskeletal Disorders: Yes Hx Arthritis: Yes Hx Back Injury: No Hx Fibromyalgia: No Hx Gout: No Hx Musculoskeletal Disease: No Hx Osteoporosis: No - PSYCH Hx Psych Problems: Yes Hx Anxiety: Yes Hx Behavior Problems: No Hx Depression: Yes Hx Emotional Abuse: No Hx Sexual Abuse: No Hx Suicide Attempt: No - HEMATOLOGY/ONCOLOGY Hx Hematology/Oncology Disorders: No Family Medical History Any Significant Family History?: No Hx Cancer: Mother, Brother/Sister Physical Exam - General General Appearance: Alert, Oriented x3, Cooperative, Mild distress - Head Head exam: Normal inspection - Eye Eye exam: Normal appearance, PERRL, EOMI Pupils: Normal accommodation - ENT ENT exam: Normal exam, Mucous membranes moist, Normal external ear exam, Normal orophraynx Ear exam: Normal external inspection. negative: External canal tenderness Nasal Exam: Normal inspection. negative: Discharge, Sinus tenderness Mouth exam: Tongue normal, Other (swelling of lower lip, vesicles) Teeth exam: Normal inspection. negative: Dental caries Throat exam: Normal inspection. negative: Tonsillar erythema, Tonsillar exudate - Neck Neck exam: Normal inspection, Full ROM. negative: Tenderness - Respiratory Respiratory exam: Normal lung sounds bilaterally. negative: Respiratory distress - Cardiovascular Cardiovascular Exam: Normal rhythm, Normal heart sounds, Tachycardia - GI/Abdominal GI/Abdominal exam: Soft, Normal bowel sounds. negative: Tenderness - Rectal Rectal exam: Deferred - exam: Deferred - Extremities Extremities exam: Normal inspection, Full ROM, Normal capillary refill. negative: Tenderness - Back Back exam: Reports: Normal inspection, Full ROM. Denies: Muscle spasm, Rash noted, Tenderness - Neurological Neurological exam: Alert, CN II-XII intact, Normal gait, Oriented X3 - Psychiatric Psychiatric exam: Normal affect, Normal mood - Skin Skin exam: Dry, Intact, Normal color, Warm Course Vital Signs 06/25/18 06/25/18 06/25/18 16:49 17:13 17:30 Temperature 98.9 F Pulse Rate 114 H Pulse Rate [ 109 H 112 H Pulse Ox Probe] Respiratory 16 16 16 Rate Blood Pressure 105/67 Blood Pressure 95/58 106/72 [Left Arm] Pulse Ox 94 L 96 06/25/18 18:00 Temperature Pulse Rate Pulse Rate [ 99 H Pulse Ox Probe] Respiratory 16 Rate Blood Pressure Blood Pressure 120/75 [Left Arm] Pulse Ox Medical Decision Making - Lab Data Result diagrams: 06/25/18 17:45 06/25/18 17:45 Lab Results 06/25/18 Range/Units 17:45 WBC 11.9 (4.2-12.2) K/uL RBC 4.01 (3.80-5.40) M/uL Hgb 11.9 (11.6-16.0) gm/dl Hct 36.9 (35.0-47.0) % MCV 92.0 (81-97) fl MCH 29.7 (27-33) pg MCHC 32.2 (32-36) g/dl RDW 14.1 (11.5-14.5) % Plt Count 249 (130-400) K/uL MPV 10.4 (7.4-10.4) fl Gran % 76.3 (47-80) % Lymphocytes % 15.2 L (16-45) % Monocytes % 8.0 (0-9) % Eosinophils % 0.2 (0-6) % Basophils % 0.3 (0-6) % Disposition Disposition: Discharge Clinical Impression: Herpes simplex, Tachycardia, Dehydration Disposition: Home, Self-Care Condition: (1) Good Instructions: Oral Herpes Simplex Virus Infections (ED) Additional Instructions: follow up with family doctor. return sooner if worse. ice to lip. sleep elevated Prescriptions: Acyclovir 400 mg PO Q8HR #40 tablet Quality - Quality Measures Quality Measures: N/A - Blood Pressure Screening Does Patient Have Any of the Following: No Blood Pressure Classification: Normal BP Reading Systolic Measurement: 105 Diastolic Measurement: 67 Screening for High Blood Pressure: < Normal BP, F/U Not Required > [G8783]
== END 2018-06-25 19:20 | disposition home or self-care (01) ==
LOC: ER 16:47
DX: B00.1 Herpesviral vesicular dermatitis (principal); E86.0 Dehydration; R00.0 Tachycardia, unspecified; E11.9 Type 2 diabetes mellitus without complications; I10 Essential (primary) hypertension; F03.90 Unspecified dementia, unspecified severity, without behavioral disturbance, psychotic disturbance, mood disturbance, and anxiety; Z79.84 Long term (current) use of oral hypoglycemic drugs; Z87.891 Personal history of nicotine dependence
CPT/HCPCS: 80048; 85025; 99283

== ENCOUNTER 2019-04-13 11:36 | Emergency (ER) | payer MEDICARE ==
--- NOTE | 2019-04-13 12:05 | Emergency Department Record ---
History of Present Illness - General Chief Complaint: Fall Injury Stated Complaint: FALL/ R KNEE /DEMENTIA Time Seen by Provider: 04/13/19 11:52 Source: Patient Mode of Arrival: Ambulatory Limitations: No limitations - History of Present Illness Initial Comments: The patient is here with family due to being chronically confused and trying to escape her home recently. She does live with family and does use a walker. This AM she was trying to leave the house to go to her own house where she has not lived for 3 years and she tripped and fell landing on her R knee. Since she has been walking normally with her walker. The patient's confusion is chronic and no worse at this time. Per family she did not hit her head or injure any other part of her body. 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 Fall Witnessed: Yes, by family Place Fall Occurred: Home Loss of Consciousness: None Prolonged Down Time?: No Symptoms Prior to Fall: None Severity: Moderate Severity scale (1-10): 2 - Randal Coma Scale Eye Response: (4) Open spontaneously Motor Response: (6) Obeys commands Verbal Response: (4) Confused conversation Randal Total: 14 - Related Data Home Medications Medication Instructions Recorded Confirmed Last Taken Metoprolol Tartrate [Lopressor] 25 mg PO BID 04/13/19 04/13/19 1 Day Ago ~04/12/19 Previous Rx's Medication Instructions Recorded Acetaminophen [Tylenol 500Mg Tab] 500 mg PO Q6H PRN 11/30/16 Allergies Allergy/AdvReac Type Severity Reaction Status Date / Time Sulfa (Sulfonamide Allergy Severe VOMITING Verified 04/13/19 11:47 Antibiotics) sulfamethoxazole Allergy Severe VOMITING Verified 04/13/19 11:47 [From Bactrim] trimethoprim [From Bactrim] Allergy Severe VOMITING Verified 04/13/19 11:47 Travel Screening - Travel/Exposure Within Last 30 Days Have you traveled within the last 30 days?: No - Travel/Exposure Within Last Year Have you traveled outside the [place] in the last year?: No - Additonal Travel Details Have you been exposed to anyone with a communicable illness?: No - Travel Symptoms Symptom Screening: None Review of Systems Constitutional: Denies: Chills, Fever Eyes: Denies: Eye discharge ENT: Denies: Congestion Respiratory: Denies: Cough Cardiovascular: Denies: Arrhythmia Endocrine: Denies: Fatigue Gastrointestinal: Denies: Nausea Genitourinary: Denies: Dysuria Musculoskeletal: Denies: Arthralgia Skin: Reports: Bruising (R knee.) Past Medical History - SOCIAL HISTORY Smoking Status: Former smoker Alcohol Use: None Drug Use: None - RESPIRATORY Hx Respiratory Disorders: No - CARDIOVASCULAR Hx Cardio Disorders: Yes Hx Abnormal EKG: No Hx Cardiac Cath: No Hx Chest Pain: No Hx CHF: No Hx Deep Vein Thrombosis: No Hx Edema: No Hx Heart Attack: No Hx Hypertension: Yes Hx Hypotension: No Hx Irregular Heartbeat: No Hx Palpitations: No Hx Pacemaker/Defib: No Hx Vascular Disease: No Comment:: HYPERLIPIDEMIA - NEURO Hx Neuro Disorders: Yes Hx Brain Tumor: No Hx CVA: No Hx Dementia: Yes Hx Dizziness: No Hx Headaches: No Hx Neuropathy: No Hx Parkinson's Disease: No Hx Seizures: No Hx Speech Problem: No Hx TIA: No - GI Hx GI Disorders: Yes Hx Abdominal Pain: No Hx Celiac Disease: No Hx Crohn's Disease: No Hx Diverticulitis: No Hx GI Bleed: Yes Hx Reflux: No Hx Hepatitis/Jaundice: No Hx Hiatal Hernia: No Hx Irritable Bowel: No Hx Liver Disease: No Hx Nausea/Vomiting: No Hx Obstructive Bowel: No Hx Pancreatitis: No Hx Rectal Bleeding: No Hx Ulcer: No Hx Wt Loss/Wt Gain: No Hx of Polyps: No - Hx Genitourinary Disorders: Yes Hx Bladder Problem: No Hx Dialysis: No Hx Kidney Stones: No Hx Renal Disease: No Hx UTI: Yes - ENDOCRINE Hx Endocrine Disorders: Yes Hx Diabetes: Yes (NIDDM) Hx Thyroid Disease: No - MUSCULOSKELETAL Hx Musculoskeletal Disorders: Yes Hx Arthritis: Yes Hx Back Injury: No Hx Fibromyalgia: No Hx Gout: No Hx Musculoskeletal Disease: No Hx Osteoporosis: No - PSYCH Hx Psych Problems: Yes Hx Anxiety: Yes Hx Behavior Problems: No Hx Depression: Yes Hx Emotional Abuse: No Hx Sexual Abuse: No Hx Suicide Attempt: No - HEMATOLOGY/ONCOLOGY Hx Hematology/Oncology Disorders: No Family Medical History Any Significant Family History?: Yes Hx Cancer: Mother, Brother/Sister Physical Exam - General General Appearance: Alert, Cooperative, No acute distress - Head Head exam: Atraumatic - Eye Eye exam: Normal appearance, PERRL - ENT Throat exam: Normal inspection. negative: Tonsillar erythema, Tonsillar exudate - Neck Neck exam: Normal inspection, Full ROM. negative: Tenderness - Respiratory Respiratory exam: Normal lung sounds bilaterally. negative: Respiratory distress - Cardiovascular Cardiovascular Exam: Regular rate, Normal rhythm, Normal heart sounds, Tachycard ia (mild.) - GI/Abdominal GI/Abdominal exam: Soft, Normal bowel sounds. negative: Tenderness - Extremities Extremities exam: Full ROM, Tenderness. negative: Normal inspection (There is bruising to the R anterior knee with mild tenderness.) - Back Back exam: Reports: Normal inspection. Denies: Vertebral tenderness - Neurological Neurological exam: Alert, Normal gait. negative: Abnormal gait, Motor sensory deficit - Skin Skin exam: negative: Rash Course Vital Signs 04/13/19 11:48 Temperature 97.5 F L Pulse Rate [ 112 H Pulse Ox Probe] Respiratory 20 Rate Blood Pressure 161/89 [Left Arm] Pulse Ox 97 - Reevaluation(s) Reevaluation #1: The patient has been calm and cooperative during her stay in the ED and she is walking normally with her walker. I did discuss consulting the social workers here tomorrow and they will contact the family to discuss new living arrangements for the patient. Due to not finding any medical reason to admit the patient we will discharge her to home for F/U later this week. 04/13/19 13:23 Medical Decision Making - Data Complexity MDM Data: Labs Ordered and/or Reviewed, X-Ray Ordered and/or Reviewed - Lab Data Result diagrams: 04/13/19 12:10 04/13/19 12:10 - Radiology Data Radiology results: Report reviewed (R knee: Neg.) Disposition Disposition: Discharge Clinical Impression: Contusion of knee, right Qualifiers: Encounter type: initial encounter Qualified Code(s): S80.01XA - Contusion of right knee, initial encounter Disposition: Home, Self-Care Condition: (2) Stable Instructions: Knee Pain (ED) Additional Instructions: Please continue your regular medicines and please see your family doctor and the social workers to discuss new living arrangements. Return to the ER for any worsening issues. Forms: Patient Portal Access Time of Disposition: 13:23 Quality - Quality Measures Quality Measures: N/A - Blood Pressure Screening View Details: Yes Does Patient Have Any of the Following: No Blood Pressure Classification: Pre-Hypertensive BP Reading Systolic Measurement: 161 Diastolic Measurement: 89 Screening for High Blood Pressure: < Pre-Hypertensive BP, F/U Documented > [G8950] Pre-Hypertensive Follow-up Interventions: Referral to alternative/primary care provider.
[2019-04-13 12:23] LABS: ABSOLUTE NEUTROPHIL COUNT 5.06; BASO % 0.3 % (0-6); EOS % 0.4 % (0-6); GRAN % 72.3 % (47-80); HEMATOCRIT 42.3 % (35.0-47.0); HEMOGLOBIN 13.5 gm/dl (11.6-16.0); LYMPH % 19.1 % (16-45); MEAN CELL VOLUME 91.2 fl (81-97); MEAN CORPUSCULAR HEMOGLOBIN 29.1 pg (27-33); MEAN CORPUSCULAR HGB CONC 31.9 g/dl (32-36); MEAN PLATELET VOLUME 9.9 fl (7.4-10.4); MONO % 7.9 % (0-9); PLATELET COUNT 187 K/uL (130-400); RED BLOOD COUNT 4.64 M/uL (3.80-5.40); RED CELL DISTRIBUTION WIDTH 13.9 % (11.5-14.5)
[2019-04-13 12:34] LABS: BLOOD UREA NITROGEN 6 mg/dL (8-23); CREATININE 0.7 mg/dL (0.5-0.9); EST GLOMERULAR FILTRATION RATE > 60 mL/min
[2019-04-13 12:35] LABS: TOTAL PROTEIN 7.7 g/dL (6.6-8.7)
[2019-04-13 12:37] LABS: GLUCOSE,RANDOM 138 mg/dL (74-109)
[2019-04-13 12:39] LABS: ALT/SGPT 11 U/L (<33)
[2019-04-13 12:40] LABS: ALB/GLOB RATIO 1.7 (1.1-1.8); ALBUMIN 4.8 g/dL (4.0-5.0); ALKALINE PHOSPHATASE 116 U/L (35-104); AST/SGOT 18 U/L (10.0-35.0)
--- NOTE | 2019-04-13 13:11 | RADIOLOGY REPORT ---
EXAMINATION: Right Knee, Three Views EXAM DATE: 04/13/2019 12:38 PM TECHNIQUE: Frontal, lateral, and oblique INDICATION: R knee pain COMPARISON: None ENCOUNTER: Not applicable FINDINGS: The bones are normally mineralized. There is normal alignment of the osseous structures with no evid ence of fracture or dislocation. There are no erosive or destructive lesions. There are no radiopaq ue foreign bodies. There is no joint effusion. Mild medial joint space narrowing. Spurring at the q uadriceps and patellar tendon insertions on the patella.. IMPRESSION: No acute process Dictated by: Tristan Savage DO on 04/13/2019 1:09 PM. .
== END 2019-04-13 13:31 | disposition home or self-care (01) ==
LOC: ER 11:36
DX: S80.01XA Contusion of right knee, initial encounter (principal); F03.90 Unspecified dementia, unspecified severity, without behavioral disturbance, psychotic disturbance, mood disturbance, and anxiety; W01.10XA Fall on same level from slipping, tripping and stumbling with subsequent striking against unspecified object, initial encounter; Y92.009 Unspecified place in unspecified non-institutional (private) residence as the place of occurrence of the external cause; I10 Essential (primary) hypertension; E11.9 Type 2 diabetes mellitus without complications
CPT/HCPCS: 80053; 85025; 99284

== ENCOUNTER 2019-04-14 14:19 | Observation (INO) | payer MEDICARE ==
[2019-04-14] MEDS ORDERED: ONDANSETRON HCL IV 4 MG/2 ML VIAL IVP ONE (14:29)
[2019-04-14] MEDS ORDERED: 0.9 % SODIUM CHLORIDE 1,000 ML BAG IV ONE (14:29)
--- NOTE | 2019-04-14 14:34 | Emergency Department Record ---
History of Present Illness - General Chief complaint: Vomiting Stated complaint: VOMITING Time Seen by Provider: 04/14/19 14:21 Source: Patient, Family Mode of Arrival: Wheelchair Limitations: No limitations - History of Present Illness Initial comments: The patient is here from Dr. Villasenor's office due to falling multiple times at home last evening. She was here in the ER yesterday due to a knee injury and was discharged to home. Yesterday she was ambulating normally with her walker. After presenting to the office today for F/U from yesterdays visit she began vomiting. Presently she is feeling better and denies any nausea or pain anywhere. The patient has a hx of significant dementia. MD complaint: Nausea, Vomiting Onset/Timin -: Hour(s) - Related Data Previous Rx's Medication Instructions Recorded Acetaminophen [Tylenol 500Mg Tab] 500 mg PO Q6H PRN 11/30/16 Allergies Allergy/AdvReac Type Severity Reaction Status Date / Time Sulfa (Sulfonamide Allergy Severe VOMITING Verified 04/14/19 14:27 Antibiotics) sulfamethoxazole Allergy Severe VOMITING Verified 04/14/19 14:27 [From Bactrim] trimethoprim [From Bactrim] Allergy Severe VOMITING Verified 04/14/19 14:27 Review of Systems Constitutional: Denies: Chills, Fever Eyes: Denies: Eye discharge ENT: Denies: Throat pain Respiratory: Denies: Cough Cardiovascular: Denies: Chest pain Endocrine: Reports: Fatigue Gastrointestinal: Denies: Nausea Genitourinary: Denies: Dysuria Musculoskeletal: Denies: Arthralgia Skin: Denies: Bruising Past Medical History - SOCIAL HISTORY Smoking Status: Former smoker Alcohol Use: None Drug Use: None - RESPIRATORY Hx Respiratory Disorders: No - CARDIOVASCULAR Hx Cardio Disorders: Yes Hx Abnormal EKG: No Hx Cardiac Cath: No Hx Chest Pain: No Hx CHF: No Hx Deep Vein Thrombosis: No Hx Edema: No Hx Heart Attack: No Hx Hypertension: Yes Hx Hypotension: No Hx Irregular Heartbeat: No Hx Palpitations: No Hx Pacemaker/Defib: No Hx Vascular Disease: No Comment:: HYPERLIPIDEMIA - NEURO Hx Neuro Disorders: Yes Hx Brain Tumor: No Hx CVA: No Hx Dementia: Yes Hx Dizziness: No Hx Headaches: No Hx Neuropathy: No Hx Parkinson's Disease: No Hx Seizures: No Hx Speech Problem: No Hx TIA: No - GI Hx GI Disorders: Yes Hx Abdominal Pain: No Hx Celiac Disease: No Hx Crohn's Disease: No Hx Diverticulitis: No Hx GI Bleed: Yes Hx Reflux: No Hx Hepatitis/Jaundice: No Hx Hiatal Hernia: No Hx Irritable Bowel: No Hx Liver Disease: No Hx Nausea/Vomiting: No Hx Obstructive Bowel: No Hx Pancreatitis: No Hx Rectal Bleeding: No Hx Ulcer: No Hx Wt Loss/Wt Gain: No Hx of Polyps: No - Hx Genitourinary Disorders: Yes Hx Bladder Problem: No Hx Dialysis: No Hx Kidney Stones: No Hx Renal Disease: No Hx UTI: Yes - ENDOCRINE Hx Endocrine Disorders: Yes Hx Diabetes: Yes (NIDDM) Hx Thyroid Disease: No - MUSCULOSKELETAL Hx Musculoskeletal Disorders: Yes Hx Arthritis: Yes Hx Back Injury: No Hx Fibromyalgia: No Hx Gout: No Hx Musculoskeletal Disease: No Hx Osteoporosis: No - PSYCH Hx Psych Problems: Yes Hx Anxiety: Yes Hx Behavior Problems: No Hx Depression: Yes Hx Emotional Abuse: No Hx Sexual Abuse: No Hx Suicide Attempt: No - HEMATOLOGY/ONCOLOGY Hx Hematology/Oncology Disorders: No Family Medical History Any Significant Family History?: Yes Hx Cancer: Mother, Brother/Sister Physical Exam - General General Appearance: Alert, Cooperative, No acute distress - Head Head exam: Atraumatic, Normocephalic, Normal inspection - Eye Eye exam: Normal appearance, PERRL - ENT Throat exam: Normal inspection. negative: Tonsillar erythema, Tonsillar exudate - Neck Neck exam: Normal inspection, Full ROM. negative: Tenderness - Respiratory Respiratory exam: Normal lung sounds bilaterally. negative: Respiratory distress - Cardiovascular Cardiovascular Exam: Regular rate, Normal rhythm, Normal heart sounds - GI/Abdominal GI/Abdominal exam: Soft, Normal bowel sounds. negative: Tenderness - Extremities Extremities exam: Normal capillary refill. negative: Tenderness - Neurological Neurological exam: Abnormal gait, Alert. negative: Motor sensory deficit, Normal gait - Psychiatric Psychiatric exam: negative: Anxious Course - Reevaluation(s) Reevaluation #1: The patient is doing better at this time. Her nausea is now gone and she is resting comfortably. Due to the recent increase in falls and the inability of the patient's family to take care of her we will admit the patient to the hospital. I did discuss the case with Dr. Garber and he did accept the admission. I also did discuss the code status with family and the patient is a DNR per her DPOA Jenaro Chris. 04/14/19 15:57 Medical Decision Making - Data Complexity MDM Data: Labs Ordered and/or Reviewed, X-Ray Ordered and/or Reviewed, EKG Order ed and/or Reviewed - Lab Data Result diagrams: 04/14/19 14:35 04/14/19 14:35 - EKG Data -: EKG Interpreted by Me EKG: No Acute Changes, Unchanged From Previous - Radiology Data Radiology results: Report reviewed (Head and Cervical CT: Neg for any acute c hanges.) Disposition Disposition: Admit Clinical Impression: Neurologic ambulation disorder Disposition: Still a Patient at [facility] Decision to Admit: Admit from ER Decision to Admit Date: 04/14/19 Decision to Admit Time: 16:08 Accepting Physician: Shirlene Time Discussed w/Accepting Physician: 16:09 Condition: (2) Stable Forms: Patient Portal Access Time of Disposition: 16:09 Quality - Quality Measures Quality Measures: N/A - Blood Pressure Screening View Details: Yes Does Patient Have Any of the Following: Active Dx of HTN Blood Pressure Classification: Hypertensive Reading Systolic Measurement: 169 Diastolic Measurement: 94 Screening for High Blood Pressure: Patient Exclusion, Hx of HTN [[id number]]
[2019-04-14 14:50] LABS: ABSOLUTE NEUTROPHIL COUNT 7.12; BASO % 0.2 % (0-6); EOS % 1.3 % (0-6); HEMATOCRIT 41.5 % (35.0-47.0); MEAN CELL VOLUME 91.6 fl (81-97); MEAN CORPUSCULAR HEMOGLOBIN 28.7 pg (27-33); MEAN CORPUSCULAR HGB CONC 31.3 g/dl (32-36); MONO % 5.5 % (0-9); PLATELET COUNT 186 K/uL (130-400); RED BLOOD COUNT 4.53 M/uL (3.80-5.40); WHITE BLOOD COUNT W/O DIFF 8.9 K/uL (4.2-12.2)
[2019-04-14 15:03] LABS: BLOOD UREA NITROGEN 7 mg/dL (8-23); CREATININE 0.7 mg/dL (0.5-0.9); EST GLOMERULAR FILTRATION RATE > 60 mL/min
[2019-04-14 15:04] LABS: TOTAL PROTEIN 7.1 g/dL (6.6-8.7)
[2019-04-14 15:06] LABS: GLUCOSE,RANDOM 186 mg/dL (74-109)
[2019-04-14 15:08] LABS: ALT/SGPT 11 U/L (<33)
[2019-04-14 15:09] LABS: ALB/GLOB RATIO 1.8 (1.1-1.8); ALBUMIN 4.6 g/dL (4.0-5.0); ALKALINE PHOSPHATASE 108 U/L (35-104); AST/SGOT 17 U/L (10.0-35.0)
--- NOTE | 2019-04-14 15:20 | CT SCAN REPORT ---
EXAMINATION: HEAD WO CONTRAST EXAM DATE: 04/14/2019 3:06 PM TECHNIQUE: Noncontrast axial images were obtained to the brain. INDICATION: head injury with vomiting. COMPARISON: 12/12/2017 ENCOUNTER: Not applicable. HAND DOMINANCE: Unknown FINDINGS: Low-attenuation areas in the periventricular and subcortical white matter. The brain parenchyma is o therwise unremarkable. No loss of zaragoza-white matter differentiation or sulcal effacement to indicate acute infarction. No evidence of intracranial mass. There is enlargement of the ventricles, sulci, and subarachnoid spaces. No hydrocephalus. There is arterial calcification. No intra-axial or extra-axial fluid collection. No evidence of intracranial hemorrhage. The paranasal sinuses, mastoid air cells, and orbits are unremarkable. Prior bilateral cataract surg ana The calvarium is intact. Moderate motion artifact IMPRESSION: 1. No CT evidence of intracranial hemorrhage or acute intracranial abnormality. 2. Extensive white matter hypoattenuation most commonly represents chronic microvascular ischemic d isease. 3. Mild cerebral and cerebellar atrophy, consistent with age. 4. Moderate motion artifact Dictated by: JONI FOOTE MD on 04/14/2019 3:16 PM. .
--- NOTE | 2019-04-14 15:23 | CT SCAN REPORT ---
EXAMINATION: CERVICAL SPINE WO CONTRAST EXAM DATE: 04/14/2019 3:06 PM TECHNIQUE: Without contrast spiral CT images were done from the foramen magnum to the upper thoracic spine. Sagittal and coronal 2-D reformats were made from source images. INDICATION: head injury with vomiting.. ENCOUNTER: Initial COMPARISON: 12/22/2016 FINDINGS: No traumatic malalignment. Mild levocurvature appears degenerative Mild anterolisthesis of C5 on C6 a ppears degenerative. The craniocervical junction is intact. Vertebral body heights are preserved without evidence of acute fracture. Moderate degenerative changes. No high-grade central canal or foraminal stenosis identified MR is more sensitive for soft tissue injury. IMPRESSION: 1. No evidence of fracture or traumatic malalignment. 2. Moderate degenerative changes Dictated by: JONI FOOTE MD on 04/14/2019 3:18 PM. .
[2019-04-14 15:54] LABS: URINE APPEARANCE CLEAR; URINE BILIRUBIN NEGATIVE (NEGATIVE); URINE BLOOD NEGATIVE (NEGATIVE); URINE COLOR YELLOW; URINE GLUCOSE (UA) NEGATIVE (NEGATIVE); URINE KETONE NEGATIVE (NEGATIVE); URINE LEUKOCYTE ESTERASE TRACE (NEGATIVE); URINE NITRITE NEGATIVE (NEGATIVE); URINE PROTEIN NEGATIVE (NEGATIVE); URINE UROBILINOGEN 0.2 E.U./dL (0.20 - 1.00)
[2019-04-14 16:01] LABS: URINE BACTERIA NONE SEEN; URINE EPITHELIAL CELLS NONE SEEN (FEW); URINE RBC NONE SEEN (NONE SEEN)
[2019-04-14] MEDS ORDERED: 0.9 % SODIUM CHLORIDE 1000ML 1,000 ML IV ONE (17:50)
[2019-04-14] MEDS ORDERED: ACETAMINOPHEN 325 MG TAB PO PRN (17:50)
[2019-04-14] MEDS: POTASSIUM CHLORIDE 20 MEQ TABLET PO SCH (21:39)
[2019-04-14] MEDS: ALPRAZOLAM 0.25 MG TABLET PO SCH (21:39)
[2019-04-14] MEDS: SIMVASTATIN 20 MG TABLET PO SCH (21:40)
[2019-04-14] MEDS: METOPROLOL TART 25 MG TABLET PO SCH (21:40)
[2019-04-14] MEDS: LISINOPRIL 20 MG TABLET PO SCH (21:40)
[2019-04-15] MEDS: PANTOPRAZOLE SODIUM 40 MG TABLET PO SCH (06:30)
--- NOTE | 2019-04-15 09:29 | History & Physical ---
History of Present Illness - Date of Service Date of Service for History & Physical: 04/15/19 - History of Present Illness Admitting Diagnosis: 1. Multiple Falls and Inability to Walk with Vomiting. History of Present Illness: 89 year old female patient was brought to ED by family after an evaluation in PCP's office for multiple falls. Patient reports patient has had multiple falls recently within the home. Also report that patient has been getting out of the home and fell on the stairs, resulting in a right knee abrasion. Family also reports patient had some vomiting at home recently as well. Family states patient's dementia has been progressing over the past month with growing difficulty caring for her at this time as a result. Significant medical history includes HTN, dementia, and diabetes type 2. PCP: Dr. Villasenor ED Course: Head CT: no intracranial hemorrhage or acute intracranial abnormality; extensive white matter disease; mild cerebral and cerebellar atrophy Cervical Spine CT: no evidence of acute fracture or traumatic malalignment; moderate degenerative changes CBC, CMP, troponin all unremarkable UA negative for infection EKG: no acute changes, unchanged from previous 04/15/19: Patient oriented to self only. Impulsive behavior noted, family at bedside. Patient denies chest pain, shortness of breath, nausea, abdominal pain, or diarrhea. Ambulated to bathroom with standby assist using walker. Travel Screening - Travel/Exposure Within Last 30 Days Have you traveled within the last 30 days?: No - Travel/Exposure Within Last Year Have you traveled outside the [place] in the last year?: No - Additonal Travel Details Have you been exposed to anyone with a communicable illness?: No Review of Systems Reviewed: No additional complaints except as noted below Constitutional: Reports: Weakness. Denies: Chills, Fever Eyes: Denies: Eye discharge ENT: Denies: Throat pain Respiratory: Denies: Cough Cardiovascular: Denies: Chest pain Gastrointestinal: Denies: Nausea Genitourinary: Denies: Dysuria Musculoskeletal: Denies: Arthralgia Skin: Denies: Bruising Neurological: Reports: Confusion (worsening from baseline) Past Medical History - SOCIAL HISTORY Smoking Status: Former smoker Alcohol Use: None Drug Use: None - RESPIRATORY Hx Respiratory Disorders: No - CARDIOVASCULAR Hx Cardio Disorders: Yes Hx Abnormal EKG: No Hx Cardiac Cath: No Hx Chest Pain: No Hx CHF: No Hx Deep Vein Thrombosis: No Hx Edema: No Hx Heart Attack: No Hx Hypertension: Yes Hx Hypotension: No Hx Irregular Heartbeat: No Hx Palpitations: No Hx Pacemaker/Defib: No Hx Vascular Disease: No Comment:: HYPERLIPIDEMIA - NEURO Hx Neuro Disorders: Yes Hx Brain Tumor: No Hx CVA: No Hx Dementia: Yes Hx Dizziness: No Hx Headaches: No Hx Neuropathy: No Hx Parkinson's Disease: No Hx Seizures: No Hx Speech Problem: No Hx TIA: No - GI Hx GI Disorders: Yes Hx Abdominal Pain: No Hx Celiac Disease: No Hx Crohn's Disease: No Hx Diverticulitis: No Hx GI Bleed: Yes Hx Reflux: No Hx Hepatitis/Jaundice: No Hx Hiatal Hernia: No Hx Irritable Bowel: No Hx Liver Disease: No Hx Nausea/Vomiting: No Hx Obstructive Bowel: No Hx Pancreatitis: No Hx Rectal Bleeding: No Hx Ulcer: No Hx Wt Loss/Wt Gain: No Hx of Polyps: No - Hx Genitourinary Disorders: Yes Hx Bladder Problem: No Hx Dialysis: No Hx Kidney Stones: No Hx Renal Disease: No Hx UTI: Yes - ENDOCRINE Hx Endocrine Disorders: Yes Hx Diabetes: Yes (NIDDM) Hx Thyroid Disease: No - MUSCULOSKELETAL Hx Musculoskeletal Disorders: Yes Hx Arthritis: Yes Hx Back Injury: No Hx Fibromyalgia: No Hx Gout: No Hx Musculoskeletal Disease: No Hx Osteoporosis: No - PSYCH Hx Psych Problems: Yes Hx Anxiety: Yes Hx Behavior Problems: No Hx Depression: Yes Hx Emotional Abuse: No Hx Sexual Abuse: No Hx Suicide Attempt: No - HEMATOLOGY/ONCOLOGY Hx Hematology/Oncology Disorders: No Family Medical History Any Significant Family History?: Yes Hx Cancer: Mother, Brother/Sister H&P Meds/Allergies - Allergies Allergies: Allergies Allergy/AdvReac Type Severity Reaction Status Date / Time Sulfa (Sulfonamide Allergy Severe VOMITING Verified 04/14/19 14:27 Antibiotics) sulfamethoxazole Allergy Severe VOMITING Verified 04/14/19 14:27 [From Bactrim] trimethoprim [From Bactrim] Allergy Severe VOMITING Verified 04/14/19 14:27 - Home Medications Previous Rx's Medication Instructions Recorded Acetaminophen [Tylenol 500Mg Tab] 500 mg PO Q6H PRN 11/30/16 - Active Medications Active Medications: Current Medications Acetaminophen (Tylenol 325mg) 650 mg PO Q6H PRN PRN Reason: PAIN - MILD(1-4)/FEVER Alprazolam (Xanax) 0.25 mg PO QHS [facility] Last Admin: 04/14/19 21:39 Dose: 0.25 mg Documented by: Isosorbide Mononitrate (Imdur) 30 mg PO DAILY [facility] Lisinopril (Zestril) 20 mg PO QHS [facility] Last Admin: 04/14/19 21:40 Dose: Not Given Documented by: Metoprolol Tartrate (Lopressor) 25 mg PO BID [facility] Last Admin: 04/14/19 21:40 Dose: Not Given Documented by: [facility]oprazole [facility]) [facility] Last Admin: 04/15/19 06:30 Dose: Not Given Documented by: Potassium Chloride (Klor-Con) 20 meq PO BID [facility] Last Admin: 04/14/19 21:39 Dose: 20 meq Documented by: Simvastatin (Zocor) 40 mg PO QHS [facility] Last Admin: 04/14/19 21:40 Dose: 40 mg Documented by: Physical Exam - Vital Signs Vital Signs: Vital Signs - Last 24 Hrs Temp Pulse Pulse Resp BP BP Pulse Ox 04/15/19 06:01 97.6 F 105 H 18 151/79 94 L 04/14/19 23:50 98.0 F 93 H 18 148/74 92 L 04/14/19 21:00 93 H 18 04/14/19 19:50 98.6 F 97 H 18 150/92 92 L 04/14/19 17:09 88 104/62 93 L 04/14/19 14:30 98.9 F 95 H 18 169/94 98 - General General Appearance: Alert, Cooperative, No acute distress, Other (oriented to elf only) Limitations: No limitations - Head Head exam: Atraumatic, Normocephalic, Normal inspection - Eye Eye exam: Normal appearance, PERRL - ENT ENT exam: Mucous membranes moist, Normal external ear exam Mouth exam: Normal external inspection Throat exam: Normal inspection. negative: Tonsillar erythema, Tonsillar exudate - Neck Neck exam: Normal inspection, Full ROM. negative: Tenderness - Respiratory Respiratory exam: Normal lung sounds bilaterally. negative: Respiratory distress - Cardiovascular Cardiovascular Exam: Regular rate, Normal rhythm, Normal heart sounds Peripheral Pulses: 2+: Radial (R), Radial (L), Dorsalis Pedis (R), Dorsalis Pedis (L) - GI/Abdominal GI/Abdominal exam: Soft, Normal bowel sounds. negative: Tenderness - Rectal Rectal exam: Deferred - exam: Deferred - Extremities Extremities exam: Normal capillary refill. negative: Tenderness Image of Full Body: 1 - healing abrasion, mild surrounding erythema, no drainage or warmth - Neurological Neurological exam: Abnormal gait, Alert. negative: Motor sensory deficit, Normal gait - Psychiatric Psychiatric exam: Other (oriented to self only). negative: Anxious - Skin Skin exam: Abrasion, Normal color Results - Labs Result Diagrams: 04/14/19 14:35 04/14/19 14:35 Labs Last 24 Hours: Laboratory Results - last 24 hr 04/14/19 04/14/19 04/14/19 14:35 14:35 14:35 WBC 8.9 RBC 4.53 Hgb 13.0 Hct 41.5 MCV 91.6 MCH 28.7 MCHC 31.3 L RDW 14.0 Plt Count 186 MPV 10.0 Gran % 80.0 Lymphocytes % 13.0 L Monocytes % 5.5 Eosinophils % 1.3 Basophils % 0.2 Absolute Neutrophils 7.12 Sodium 135 L Potassium 3.4 Chloride 95 L Carbon Dioxide 23.0 Anion Gap 17.0 H BUN 7 L Creatinine 0.7 Estimated GFR > 60 Random Glucose 186 H Calcium 9.5 Total Bilirubin 0.90 AST 17 ALT 11 Alkaline Phosphatase 108 H Troponin T < 0.010 Total Protein 7.1 Albumin 4.6 Globulin 2.5 Albumin/Globulin Ratio 1.8 Urine Color Urine Appearance Urine pH Ur Specific [place] Urine Protein Urine Glucose (UA) Urine Ketones Urine Blood Urine Nitrite Urine Bilirubin Urine Urobilinogen Ur Leukocyte Esterase Urine RBC Urine WBC Ur Epithelial Cells Urine Bacteria 04/14/19 15:49 WBC RBC Hgb Hct MCV MCH MCHC RDW Plt Count MPV Gran % Lymphocytes % Monocytes % Eosinophils % Basophils % Absolute Neutrophils Sodium Potassium Chloride Carbon Dioxide Anion Gap BUN Creatinine Estimated GFR Random Glucose Calcium Total Bilirubin AST ALT Alkaline Phosphatase Troponin T Total Protein Albumin Globulin Albumin/Globulin Ratio Urine Color Yellow Urine Appearance Clear Urine pH 6.0 Ur Specific [place] 1.010 Urine Protein Negative Urine Glucose (UA) Negative Urine Ketones Negative Urine Blood Negative Urine Nitrite Negative Urine Bilirubin Negative Urine Urobilinogen 0.2 Ur Leukocyte Esterase Trace H Urine RBC None seen Urine WBC Ur Epithelial Cells None seen Urine Bacteria None seen - Imaging and Cardiology CT scan - head Status: Report reviewed VTE H&P Assessment - Risk for VTE Risk for VTE: Yes Risk Level: Moderate Risk Assessment Date: 04/15/19 Risk Assessment Time: 10:40 VTE Orders Placed or Will Be Placed: No VTE Reason for No Prophylaxis: Contraindicated Plan - Detailed Diagnosis and Plan (1) Dementia Current Visit: No Status: Chronic Qualifiers: Dementia type: Alzheimer's disease Dementia behavioral disturbance: without behavioral disturbance Base Code: F03.90 - UNSPECIFIED DEMENTIA WITHOUT BEHAVIORAL DISTURBANCE Comment: 04/15/19: -Advanced dementia with increasing agitation -Cared for at home by elderly brother and , report unable to care for patient any more due to multiple falls and worsening dementia -PCP has stopped most medications, currently only taking Xanax 0.25mg qhs for aggitation -Fall precautions in place -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 (2) Multiple falls Current Visit: Yes Status: Acute Base Code: R29.6 - REPEATED FALLS Comment: 04/15/19: -Family reports multiple falls within the home -Uses walker at baseline -PT/OT to evaluate -CBC, CMP, troponin, UA all negative for acute process -Head/cervical spine CT negative (3) Risk for falls Current Visit: Yes Status: Acute Base Code: Z91.81 - HISTORY OF FALLING Comment: 04/15/19: -Fall risk precautions in place (4) Hypertension Current Visit: No Status: Acute Qualifiers: Hypertension type: essential hypertension Qualified Code(s): I10 - Essential (primary) hypertension Base Code: I10 - ESSENTIAL (PRIMARY) HYPERTENSION Comment: 04/15/19: - BP controlled on Lisinopril 20mg daily and Lopressor 25mg BID (5) DVT prophylaxis Current Visit: No Status: Acute Base Code: [id number] - Comment: 04/15/19: -High risk due to age and hospitalization -No pharmacological prophylaxis due to high fall risk -Encourage ambulation within the room -SCDs ordered to be used while in bed. (6) DNR (do not resuscitate) Current Visit: Yes Status: Acute Base Code: Z66 - DO NOT RESUSCITATE Comm ent: 04/15/19: -DNR status this admission
[2019-04-15] MEDS: ISOSORBIDE MONONITRATE 30 MG TAB.ER.24H PO SCH (11:37)
[2019-04-15] MEDS: METOPROLOL TART 25 MG TABLET PO SCH ×2 (11:37→23:01)
[2019-04-15] MEDS: POTASSIUM CHLORIDE 20 MEQ TABLET PO SCH ×2 (11:37→23:03)
--- NOTE | 2019-04-15 12:07 | RADIOLOGY REPORT ---
EXAMINATION: Single View Chest EXAM DATE: 04/15/2019 11:09 AM TECHNIQUE: Single view chest INDICATION: patient requiring placement; screening COMPARISON: 08/26/2016 ENCOUNTER: Not applicable FINDINGS: Cardiac silhouette within normal limits of size. Opacity between the left heart border and left later al pleura. Mild linear left medial lung base opacities. No pneumothorax. Narrowed right acromiohumera l distance. Dextrocurvature of the thoracic spine. IMPRESSION: Mild opacities at the left lung base indicating atelectasis or infiltrates. Dextrocurvature of the thoracic spine. Narrowed right acromiohumeral distance concerning for rotator cuff tear. >> Dictated by: Ramon Lackey MD on 04/15/2019 11:41 AM. .
[2019-04-15] MEDS ORDERED: ONDANSETRON HCL IV 4 MG/2 ML VIAL IVP PRN (13:47)
[2019-04-15] MEDS ORDERED: ONDANSETRON 4 MG ODT TABLET SL PRN (14:12)
--- NOTE | 2019-04-15 14:21 | Rehab Evaluation ---
Patient Information - Patient Information Diagnosis: Multiple falls and inability to walk with vomitting Ordered Treatment: PT Evaluate and Treat (Patient lives with her brother and [id number]. Patient was not a good historian but reported that she did not use a walker prior to this hospitalization. She also stated that she takes and bath and is able to bathe independently. She stated there were not grab bars in her shower.) Surgery: No History: Detail (Patient was admitted to the inpatient floor from the ED on 04/14/19. She fell multiple times on 04/13/19.) Past Medical/Surgical Hx: PAST MEDICAL/SURGICAL HISTORY Past Surgical History CHOLECYSTECTOMY PMH - Respiratory Hx Respiratory Disorders No PMH - Cardiovascular Hx Cardiovascular Disorders Yes Hx Abnormal EKG No Hx Cardiac Catheterization No Hx Chest Pain No Hx Congestive Heart Failure No Hx Deep Vein Thrombosis No Hx Edema No Hx Heart Attack No Hx Hypertension Yes Hx Hypotension No Hx Irregular Heartbeat No Hx Palpitations No Hx Pacemaker/Defibrillator No Hx Vascular Disease No Hx Transient Ischemic Attacks No (TIA) Comment: HYPERLIPIDEMIA PMH - Neuro Hx Neurological Disorders Yes Hx Brain Tumor No Hx Cerebrovascular Accident No Hx Dementia Yes Hx Dizziness No Hx Headaches No Hx Neuropathy No Hx Parkinson's Disease No Hx Seizures No Hx Speech Problem No Hx Syncope No Hx Transient Ischemic Attacks No (TIA) PMH - GI Hx Gastrointestinal Disorders Yes Hx Abdominal Pain No Hx Celiac Disease No Hx Crohn's Disease No Hx Diverticulitis No Hx Gastrointestinal Bleed Yes Hx Gastroesophageal Reflux No Hx Hepatitis/Jaundice No Hx Hiatal Hernia No Hx Irritable Bowel No Hx Liver Disease No Hx Nausea/Vomiting No Hx Obstructive Bowel No Hx Pancreatitis No Hx Rectal Bleeding No Hx Ulcer No Hx Weight Loss/Weight Gain No PMH - Hx Genitourinary Disorders Yes Hx Bladder Problem No Hx Dialysis No Hx Kidney Stones No Hx Renal Disease No Hx Urinary Tract Infection Yes PMH - Endocrine Hx Endocrine Disorders Yes Hx Diabetes Yes: NIDDM Hx Thyroid Disease No PMH - Musculoskeletal Hx Musculoskeletal Disorders Yes Hx Arthritis Yes Hx Back Injury No Hx Fibromyalgia No Hx Gout No Hx Musculoskeletal Disease No Hx Osteoporosis No PMH - Psych Hx Psychiatric Problems Yes Hx Anxiety Yes Hx Behavior Problems No Hx Depression Yes Hx Emotional Abuse No Hx Sexual Abuse No Hx Suicide Attempt No PMH - Hematology/Oncology Hx Hematology/Oncology No Disorders Premorbid Status: Detail (Patient was a poor historian but stated that she did not use an AD before this hospitalization. She also was unsure of her current living situation. From her family, it was reported that she did use a walker before the hospitalization and lives with her brother and [id number]. Patient was hard of hearing.) Precautions: [place], Fall - Time With Patient Total Time Spent With Patient (Min): 25 Treatment Procedures: Detail (Initial evaluation; low complexity. The patient was left in the bedside chair with her call light and bedside table within reach. There was a staff member in the room with her.) Subjective Information - Subjective Information Per Patient (Patient reported that she had a stomach ache.) Objective Data - Pain Pain Present: Yes (Stomach ache) - Mental Status Patient Orientation: Person (Patient was able to state her birthdate but not the correct year she was born. She stated she was 89 when she is 89. Patient knew her last name.), Place (Patient was not able to identify her current location.), Time (Patient stated that the current month was February. She said that she could not remember the current year or president.) - Visual Perception Appears within normal limits for therapeutic activities - ROM Within normal limits (LE AROM was within normal limits for functional activities.) - Strength/Tone Other (Muscle testing was difficult to perform on this patient due to hearing and cognition defecits. Results were as follows: bilateral hip flexion 3+/5, bilateral knee flexion 4/5, R knee extension 4/5, L knee extension 3+/5, bilateral ankle dorsiflexion 3+/5) - Bed Mobility Needs Assist (Bed mobility was not assessed due to patient being in the bedside chair upon therapy staff arrival and requesting to go back there after evaluation.) - Transfers Independent (Patient was independent in sit to stand and stand to sit. When going to sit in the chair she reached for it and did not line herself up with it or reach for it before going to sit down.) - Balance Balance Sitting: Good Balance Standing: Fair (Patient was unsteady with ambulation and required the use of the walker to maintain static standing balance.) - Sensation Intact - Gait Detail (Patient ambulated 30 feet with contact guard of 1 with a front-wheeled walker. Step length is decreased bilaterally. Her gait path tended to go towards the right and the patient required verbal cuing to move herself back to the left. During ambulation her R foot would sometimes not clear the floor and she would catch her toe on the ground. After ambulation and evaluation procedures the patient was short of breath.) - ADL's/IADL's Detail - Special Tests No Therapy Assessment - Therapy Assessment Detail (Patient presents with gait abnormalities, decreased lower extremity strength, and decreased endurance that make her a good candidate for inpatient therapy. She would benefit from ongoing therapy following discharge in a [facility]min ex[facility] rehab setting but her ability to participate is hard to predict based on her cognition challenges.) Problem List - Problem List Physical Therapy Problem List: Detail (1. Decreased endurance 2. Decreased balance 3. Gait abnormalities 4. Decreased lower extremity strength) Goals - Goals Physical Therapy Goals: 1. Patient will be able to ambulate 50 feet with a front-wheeled walker with supervision to be able to get around her home. 2. Patient be able to ambulate 20 feet in a straight path without needing verbal cuing. 3. Patient's balance will be formally assessed using an objective balance outcome measure. Prognosis - Prognosis Good Plan - Plan Physical Therapy Plan: Patient will be seen 1-2x a day, M-F, during her inpatient stay for therapeutic activities and exercises, gait training, and balance training.
--- NOTE | 2019-04-15 14:49 | Rehab Evaluation ---
Patient Information - Patient Information Diagnosis: Multiple falls and inability to walk with vomitting Ordered Treatment: OT Evaluate and Treat (Patient lives with her brother and [id number]. Patient was not a good historian but reported that she did not use a walker prior to this hospitalization. She also stated that she takes and bath and is able to bathe independently. She stated there were not grab bars in her shower.) Status: Initial Evaluation Surgery: No History: Detail (Patient was admitted to the inpatient floor from the ED on 04/14/19. She fell multiple times on 04/13/19.) Past Medical/Surgical Hx: PAST MEDICAL/SURGICAL HISTORY Past Surgical History CHOLECYSTECTOMY PMH - Respiratory Hx Respiratory Disorders No PMH - Cardiovascular Hx Cardiovascular Disorders Yes Hx Abnormal EKG No Hx Cardiac Catheterization No Hx Chest Pain No Hx Congestive Heart Failure No Hx Deep Vein Thrombosis No Hx Edema No Hx Heart Attack No Hx Hypertension Yes Hx Hypotension No Hx Irregular Heartbeat No Hx Palpitations No Hx Pacemaker/Defibrillator No Hx Vascular Disease No Hx Transient Ischemic Attacks No (TIA) Comment: HYPERLIPIDEMIA PMH - Neuro Hx Neurological Disorders Yes Hx Brain Tumor No Hx Cerebrovascular Accident No Hx Dementia Yes Hx Dizziness No Hx Headaches No Hx Neuropathy No Hx Parkinson's Disease No Hx Seizures No Hx Speech Problem No Hx Syncope No Hx Transient Ischemic Attacks No (TIA) PMH - GI Hx Gastrointestinal Disorders Yes Hx Abdominal Pain No Hx Celiac Disease No Hx Crohn's Disease No Hx Diverticulitis No Hx Gastrointestinal Bleed Yes Hx Gastroesophageal Reflux No Hx Hepatitis/Jaundice No Hx Hiatal Hernia No Hx Irritable Bowel No Hx Liver Disease No Hx Nausea/Vomiting No Hx Obstructive Bowel No Hx Pancreatitis No Hx Rectal Bleeding No Hx Ulcer No Hx Weight Loss/Weight Gain No PMH - Hx Genitourinary Disorders Yes Hx Bladder Problem No Hx Dialysis No Hx Kidney Stones No Hx Renal Disease No Hx Urinary Tract Infection Yes PMH - Endocrine Hx Endocrine Disorders Yes Hx Diabetes Yes: NIDDM Hx Thyroid Disease No PMH - Musculoskeletal Hx Musculoskeletal Disorders Yes Hx Arthritis Yes Hx Back Injury No Hx Fibromyalgia No Hx Gout No Hx Musculoskeletal Disease No Hx Osteoporosis No PMH - Psych Hx Psychiatric Problems Yes Hx Anxiety Yes Hx Behavior Problems No Hx Depression Yes Hx Emotional Abuse No Hx Sexual Abuse No Hx Suicide Attempt No PMH - Hematology/Oncology Hx Hematology/Oncology No Disorders Premorbid Status: Detail (Patient was a poor historian but stated that she did not use an AD before this hospitalization. She also was unsure of her current living situation. From her family, it was reported that she did use a walker before the hospitalization and lives with her brother and [id number]. Patient was hard of hearing.) Precautions: [place], Fall, Other ([place]) - Time With Patient Total Time Spent With Patient (Min): 35 Treatment Procedures: Detail (OT eval low complexity) Subjective Information - Subjective Information Per Patient Objective Data - Pain Pain Present: Yes (Pt c/o pain intermittently during the evaluation but unable to verbalize a number.) - Mental Status Patient Orientation: Person (Pt oriented to self and month/day of birthday, she was unable to state year of birthday or age. Pt required continued verbal cues to participate in evaluation tasks.), Place (Pt reports she was at her brother Geovani house), Time (Pt states month as February but unable to state year.) - Visual Perception Appears within normal limits for therapeutic activities - ROM Not within normal limits (Vick UE AROM limited especially shoulder flexion although difficult to formally assess due to decreased cognition. Pt demonstrates functional use of vick UEs during dressing task.) - Strength/Tone Not within normal limits (Vick UE grossly 4/5 throughout although difficult to formally assess due to impaired cognition.) - Coordination Appears within normal limits for therapeutic activities - Transfers Needs Assist (Sit to stand from chair with CG assist.) - Balance Balance Sitting: Good Balance Standing: Fair - Sensation Intact - Gait Detail (Pt ambulated a short distance with 2 wheeled walker and CG assist, pt had difficulty steering walker and tended to bump into objects on the right side. She was short of breath following ambulation.) - ADL's/IADL's Detail (Pt was able to doff slipper socks with verbal cues and don pants with min assist to start over feet as well as CG assist to stand and pull pants over hips. Pt able to don slip on shoes Indly with verbal cues.) Therapy Assessment - Therapy Assessment Detail (Pt presents with decreased overall endurance, decreased cognition and decreased Ind with self cares.) Problem List - Problem List Physical Therapy Problem List: Detail (1. Decreased endurance 2. Decreased balance 3. Gait abnormalities 4. Decreased lower extremity strength) Occupational Therapy Problem List: Detail (1. Decreased Ind with total body dressing. 2. Decreased endurance needed for safe ADLs.) Goals - Goals Physical Therapy Goals: 1. Patient will be able to ambulate 50 feet with a front-wheeled walker with supervision to be able to get around her home. 2. Patient be able to ambulate 20 feet in a straight path without needing verbal cuing. 3. Patient's balance will be formally assessed using an objective balance outcome measure. Occupational Therapy Goals: 1. Pt will be Ind with total body dressing after set up. 2. Pt will demonstrate improved overall endurance to allow safe and Ind self cares. Prognosis - Prognosis Moderate (Pt has a guarded rehab potential due to cognitive limitations. She would benefit from improved endurance which would allow for increased Ind with self cares.) Plan - Plan Physical Therapy Plan: Patient will be seen 1-2x a day, M-F, during her inpatient stay for therapeutic activities and exercises, gait training, and balance training. Occupational Therapy Plan: OT 1-2 times per week to address goals and problem list as above.
[2019-04-15] MEDS ORDERED: OLANZAPINE 5MG TABLET PO SCH (16:45)
[2019-04-15] MEDS ORDERED: OLANZAPINE 10 MG VIAL IM ONE (16:52)
[2019-04-15] MEDS ORDERED: HALOPERIDOL LACTATE 5 MG/ML VIAL IM ONE (18:37)
[2019-04-15] MEDS: ALPRAZOLAM 0.25 MG TABLET PO SCH (23:00)
[2019-04-15] MEDS: SIMVASTATIN 20 MG TABLET PO SCH (23:01)
[2019-04-15] MEDS: LISINOPRIL 20 MG TABLET PO SCH (23:01)
[2019-04-16] MEDS: PANTOPRAZOLE SODIUM 40 MG TABLET PO SCH ×2 (10:05→10:32)
[2019-04-16] MEDS: ISOSORBIDE MONONITRATE 30 MG TAB.ER.24H PO SCH (10:32)
[2019-04-16] MEDS: POTASSIUM CHLORIDE 20 MEQ TABLET PO SCH ×2 (10:32→21:26)
[2019-04-16] MEDS: METOPROLOL TART 25 MG TABLET PO SCH ×2 (10:32→21:27)
--- NOTE | 2019-04-16 16:33 | Physical Therapy Tx Note ---
Physical Therapy Tx Note - Treatment Note Physical Therapy Tx Note: Detail (Patient not seen this pm due to nursing staff request- ie: pt. just got back in bed and sleeping.) Physical Therapy Problem List: Detail (1. Decreased endurance 2. Decreased balance 3. Gait abnormalities 4. Decreased lower extremity strength) Physical Therapy Goals: 1. Patient will be able to ambulate 50 feet with a front-wheeled walker with supervision to be able to get around her home. 2. Patient be able to ambulate 20 feet in a straight path without needing verbal cuing. 3. Patient's balance will be formally assessed using an objective balance outcome measure. Physical Therapy Plan: Patient will be seen 1-2x a day, M-F, during her inpatient stay for therapeutic activities and exercises, gait training, and balance training.
--- NOTE | 2019-04-16 16:44 | Physician Progress Note ---
Subjective - Date Date of Physician Progress Note: 04/16/19 - Subjective Subjective Comment: Patient remains drowsy today due to receiving Haldol and Zyprexa last night for increased agitation and aggression with staff. Patient awakens to arousal and able to ambulate with staff to bathroom. Objective - Vital Signs Vital Signs: Vital Signs - Last 24 Hrs Temp Pulse Resp BP Pulse Ox 04/16/19 12:00 98.6 F 90 16 135/79 04/16/19 09:00 87 16 04/16/19 08:55 98.7 F 87 16 148/75 95 04/15/19 23:00 97.9 F 98 H 18 177/91 93 L 04/15/19 20:03 100 H - General General Appearance: Alert, Cooperative, No acute distress, Other (oriented to self only, drowsy) Limitations: No limitations - Head Head exam: Atraumatic, Normocephalic, Normal inspection - Eye Eye exam: Normal appearance, PERRL - ENT ENT exam: Mucous membranes moist, Normal external ear exam Mouth exam: Normal external inspection Throat exam: Normal inspection. negative: Tonsillar erythema, Tonsillar exudate - Neck Neck exam: Normal inspection, Full ROM. negative: Tenderness - Respiratory Respiratory exam: Normal lung sounds bilaterally. negative: Respiratory distres s - Cardiovascular Cardiovascular Exam: Regular rate, Normal rhythm, Normal heart sounds Peripheral Pulses: 2+: Radial (R), Radial (L), Dorsalis Pedis (R), Dorsalis Pedis (L) - GI/Abdominal GI/Abdominal exam: Soft, Normal bowel sounds. negative: Tenderness - Rectal Rectal exam: Deferred - exam: Deferred - Extremities Extremities exam: Normal capillary refill. negative: Tenderness - Neurological Neurological exam: Abnormal gait. negative: Motor sensory deficit, Normal gait - Psychiatric Psychiatric exam: Other (oriented to self only). negative: Anxious - Skin Skin exam: Abrasion, Normal color Assessment and Plan - Assessment and Plan (1) Dementia Current Visit: No Status: Chronic Qualifiers: Dementia type: Alzheimer's disease Dementia behavioral disturbance: without behavioral disturbance Base Code: F03.90 - UNSPECIFIED DEMENTIA WITHOUT BEHAVIORAL DISTURBANCE Comment: 04/16/19: -Advanced dementia with increasing agitation and aggression -Cared for at home by elderly brother and , report unable to care for patient any more due to multiple falls and worsening dementia -PCP has stopped most medications, currently only taking Xanax 0.25mg qhs for aggitation -Fall precautions in place -Patient would benefit from [facility] admission for medicatoin adjustments, pending placement -Remains drowsy today after receiving Haldol and Zyprexa last night for agitation and aggression -Haldol 1mg IM prn agitation (2) Risk for falls Current Visit: Yes Status: Acute Base Code: Z91.81 - HISTORY OF FALLING Comment: 04/16/19: -Fall risk precautions in place (3) Hypertension Current Visit: No Status: Acute Qualifiers: Hypertension type: essential hypertension Qualified Code(s): I10 - Essential (primary) hypertension Base Code: I10 - ESSENTIAL (PRIMARY) HYPERTENSION Comment: 04/16/19: - BP controlled on Lisinopril 20mg daily and Lopressor 25mg BID (4) DVT prophylaxis Current Visit: No Status: Acute Base Code: [id number] - Comment: 04/16/19: -High risk due to age and hospitalization -No pharmacological prophylaxis due to high fall risk -Encourage ambulation within the room -SCDs ordered to be used while in bed. (5) DNR (do not resuscitate) Current Visit: Yes Status: Acute Base Code: Z66 - DO NOT RESUSCITATE Comment: 04/16/19: -DNR status this admission Results - Labs Result Diagrams: 04/14/19 14:35 04/14/19 14:35 DVT/PE Assessment - Risk for VTE Risk for VTE: No Risk Level: Moderate Risk Assessment Date: 04/15/19 Risk Assessment Time: 10:40 VTE Orders Placed or Will Be Placed: No VTE Reason for No Prophylaxis: Contraindicated - Active Medicaitons Current Medications: Current Medications Acetaminophen (Tylenol 325mg) 650 mg PO Q6H PRN PRN Reason: PAIN - MILD(1-4)/FEVER Alprazolam (Xanax) 0.25 mg PO QHS [facility] Last Admin: 04/15/19 23:00 Dose: 0.25 mg Documented by: Isosorbide Mononitrate (Imdur) 30 mg PO DAILY [facility] Last Admin: 04/16/19 10:32 Dose: 30 mg Documented by: Lisinopril (Zestril) 20 mg PO QHS [facility] Last Admin: 04/15/19 23:01 Dose: 20 mg Documented by: Metoprolol Tartrate (Lopressor) 25 mg PO BID [facility] Last Admin: 04/16/19 10:32 Dose: 25 mg Documented by: Olanzapine (Zyprexa) 5 mg PO BID [facility] Ondansetron HCl (Zofran Odt) 4 mg SL Q8H PRN PRN Reason: NAUSEA/VOMITING Last Admin: 04/15/19 14:17 Dose: 4 mg Documented by: Pantoprazole [facility] (Pro[facility]ix) [facility] Last Admin: 04/16/19 10:32 Dose: 40 mg Documented by: Potassium Chloride (Klor-Con) 20 meq PO BID [facility] Last Admin: 04/16/19 10:32 Dose: 20 meq Documented by: Simvastatin (Zocor) 40 mg PO QHS [facility] Last Admin: 04/15/19 23:01 Dose: 40 mg Documented by: AMI Plan - Labs Result Diagrams: 04/14/19 14:35 04/14/19 14:35
[2019-04-16] MEDS ORDERED: HALOPERIDOL LACTATE 5 MG/ML VIAL IM PRN (17:14)
[2019-04-16] MEDS: SIMVASTATIN 20 MG TABLET PO SCH (21:26)
[2019-04-16] MEDS: LISINOPRIL 20 MG TABLET PO SCH (21:26)
[2019-04-16] MEDS ORDERED: OLANZAPINE 5MG TABLET PO SCH (22:00)
[2019-04-17] MEDS: PANTOPRAZOLE SODIUM 40 MG TABLET PO SCH (06:02)
[2019-04-17] MEDS: POTASSIUM CHLORIDE 20 MEQ TABLET PO SCH (09:55)
[2019-04-17] MEDS: METOPROLOL TART 25 MG TABLET PO SCH (09:55)
[2019-04-17] MEDS: ISOSORBIDE MONONITRATE 30 MG TAB.ER.24H PO SCH (09:56)
--- NOTE | 2019-04-17 09:56 | Physician Progress Note ---
Subjective - Date Date of Physician Progress Note: 04/17/19 - Subjective Subjective Comment: Patient awake and alert to self and place this morning. Interacting with staff, ambulating to bathroom with standby assist. Patient has not required 1:1 sitter in over 24 hours. No IV fluids, antibiotics, or supplemental oxygen has been used since admission. Petition and cert completed yesterday due to patient's aggression and aggitation with family and staff. Case management continues to work on finding placement. Objective - Multidiciplinary Team Multidiciplinary Team: Case Management - Vital Signs Vital Signs: Vital Signs - Last 24 Hrs Temp Pulse Resp BP Pulse Ox 04/17/19 09:20 97.2 F L 93 H 16 148/90 94 L 04/17/19 00:07 97.7 F 65 14 136/66 93 L 04/16/19 21:00 16 04/16/19 19:00 70 14 157/84 04/16/19 12:00 98.6 F 90 16 135/79 - General General Appearance: Alert, Cooperative, No acute distress, Other (oriented to self and place) Limitations: No limitations - Head Head exam: Atraumatic, Normocephalic, Normal inspection - Eye Eye exam: Normal appearance, PERRL - ENT ENT exam: Mucous membranes moist, Normal external ear exam Mouth exam: Normal external inspection Throat exam: Normal inspection. negative: Tonsillar erythema, Tonsillar exudate - Neck Neck exam: Normal inspection, Full ROM. negative: Tenderness - Respiratory Respiratory exam: Normal lung sounds bilaterally. negative: Respiratory distress - Cardiovascular Cardiovascular Exam: Regular rate, Normal rhythm, Normal heart sounds Peripheral Pulses: 2+: Radial (R), Radial (L), Dorsalis Pedis (R), Dorsalis Pedis (L) - GI/Abdominal GI/Abdominal exam: Soft, Normal bowel sounds. negative: Tenderness - Rectal Rectal exam: Deferred - exam: Deferred - Extremities Extremities exam: Normal capillary refill. negative: Tenderness Image of Full Body: 1 - healing abrasion - Neurological Neurological exam: Abnormal gait. negative: Motor sensory deficit, Normal gait - Psychiatric Psychiatric exam: Other (oriented to self and place). negative: Anxious - Skin Skin exam: Abrasion, Normal color Assessment and Plan - Assessment and Plan (1) Dementia Current Visit: No Status: Chronic Qualifiers: Dementia type: Alzheimer's disease Dementia behavioral disturbance: with behavioral disturbance Comment: 04/17/19: -Advanced dementia with increasing agitation and aggression -Cared for at home by elderly brother and , report being unable to care for patient any more due to multiple falls and worsening dementia -PCP has stopped most medications, currently only taking Xanax 0.25mg qhs for aggitation -Fall precautions in place -Patient would benefit from [facility]-psych admission for medicatoin adjustments, petition and cert completed -Received Haldol and Zyprexa on admission for aggression and agitation. Has not required 1:1 sitter since admission. -Case management continuing to work on placement (2) Risk for falls Current Visit: Yes Status: Acute Base Code: Z91.81 - HISTORY OF FALLING Comment: 04/17/19: -Fall risk due to age and dementia -Fall risk precautions in place, ambulating with walker and standby assit to bathroom (3) Hypertension Current Visit: No Status: Acute Qualifiers: Hypertension type: essential hypertension Qualified Code(s): I10 - Essential (primary) hypertension Base Code: I10 - ESSENTIAL (PRIMARY) HYPERTENSION Comment: 04/17/19: - BP controlled on Lisinopril 20mg daily and Lopressor 25mg BID (4) DVT prophylaxis Current Visit: No Status: Acute Base Code: [id number] - Comment: 04/17/19: -High risk due to age and hospitalization -No pharmacological prophylaxis due to high fall risk -Encourage ambulation within the room -SCDs ordered to be used while in bed. (5) DNR (do not resuscitate) Current Visit: Yes Status: Acute Base Code: Z66 - DO NOT RESUSCITATE Comment: 04/17/19: -DNR status this admission Results - Labs Result Diagrams: 04/14/19 14:35 04/14/19 14:35 DVT/PE Assessment - Risk for VTE Risk for VTE: No Risk Level: Moderate Risk Assessment Date: 04/15/19 Risk Assessment Time: 10:40 VTE Orders Placed or Will Be Placed: No VTE Reason for No Prophylaxis: Contraindicated - Active Medicaitons Current Medications: Current Medications Acetaminophen (Tylenol 325mg) 650 mg PO Q6H PRN PRN Reason: PAIN - MILD(1-4)/FEVER Alprazolam (Xanax) 0.25 mg PO QHS [facility] Last Admin: 04/15/19 23:00 Dose: 0.25 mg Documented by: Haloperidol Lactate (Haldol) 1 mg IM Q8H PRN PRN Reason: AGITATION Isosorbide Mononitrate (Imdur) 30 mg PO DAILY [facility] Last Admin: 04/16/19 10:32 Dose: 30 mg Documented by: Lisinopril (Zestril) 20 mg PO QHS [facility] Last Admin: 04/16/19 21:26 Dose: 20 mg Documented by: Metoprolol Tartrate (Lopressor) 25 mg PO BID [facility] Last Admin: 04/16/19 21:27 Dose: 25 mg Documented by: Ondansetron HCl (Zofran Odt) 4 mg SL Q8H PRN PRN Reason: NAUSEA/VOMITING Last Admin: 04/15/19 14:17 Dose: 4 mg Documented by: [facility]opraz[facility] Last Admin: 04/17/19 06:02 Dose: 40 mg Documented by: Potassium Chloride (Klor-Con) 20 meq PO BID [facility] Last Admin: 04/16/19 21:26 Dose: 20 meq Documented by: Simvastatin (Zocor) 40 mg PO QHS [facility] Last Admin: 04/16/19 21:26 Dose: 40 mg Documented by: AMI Plan - Labs Result Diagrams: 04/14/19 14:35 04/14/19 14:35
[2019-04-17] MEDS ORDERED: OLANZAPINE 5MG TABLET PO SCH ×2 (10:30→16:30)
--- NOTE | 2019-04-17 11:40 | Physical Therapy Tx Note ---
Physical Therapy Tx Note - Treatment Note Tolerated: Good Total Time Spent With Patient: 15 Physical Therapy Tx Note: Detail (Patient was sleeping in her bed upon PT arrival. She was independent in bed mobility in moving to the edge of the bed. She needed verbal cuing to position herself at the edge of the bed with her feet on the floor. Contact guard was needed for sit to stand, and verbal cuing was needed to push with one hand from the bed. Patient ambulated 30 feet in the hallway with contact guard of 1. PT also had contact guard on the walker because patient was pushing the walker out far in front of her. Verbal cuing was needed for patient to stay inside of the walker. At the alf point of the walk she reported that her legs were feeling tired. The patient was independent in stand to sit in the bedside chair. She was left in the chair with her call light and bedside table within reach, and the chair alarm set. The nursing staff was in the room with her.) Physical Therapy Problem List: Detail (1. Decreased endurance 2. Decreased balance 3. Gait abnormalities 4. Decreased lower extremity strength) Physical Therapy Goals: 1. Patient will be able to ambulate 50 feet with a front-wheeled walker with supervision to be able to get around her home. 2. Patient be able to ambulate 20 feet in a straight path without needing verbal cuing. 3. Patient's balance will be formally assessed using an objective balance outcome measure. Physical Therapy Plan: Patient will be seen 1-2x a day, M-F, during her inpatient stay for therapeutic activities and exercises, gait training, and balance training.
--- NOTE | 2019-04-17 17:13 | Discharge Summary ---
Providers Discharge Summary Date: 04/17/19 Date of admission: 04/14/19 16:55 Expected Date of Discharge: 04/17/19 Attending physician: GABRIELLA DE LEON Primary care physician: Tu Villasenor Physical Exam - Vital Signs Vital Signs: Vital Signs - Last 24 Hrs Temp Pulse Resp BP Pulse Ox 04/17/19 13:00 98.7 F 84 16 131/77 94 L 04/17/19 09:20 97.2 F L 93 H 16 148/90 94 L 04/17/19 09:00 93 H 16 04/17/19 00:07 97.7 F 65 14 136/66 93 L 04/16/19 21:00 16 04/16/19 19:00 70 14 157/84 - General General Appearance: Alert, Cooperative, No acute distress, Other (oriented to self ) Limitations: No limitations - Head Head exam: Atraumatic, Normocephalic, Normal inspection - Eye Eye exam: Normal appearance, PERRL - ENT ENT exam: Mucous membranes moist, Normal external ear exam Mouth exam: Normal external inspection Throat exam: Normal inspection. negative: Tonsillar erythema, Tonsillar exudate - Neck Neck exam: Normal inspection, Full ROM. negative: Tenderness - Respiratory Respiratory exam: Normal lung sounds bilaterally. negative: Respiratory distress - Cardiovascular Cardiovascular Exam: Regular rate, Normal rhythm, Normal heart sounds Peripheral Pulses: 2+: Radial (R), Radial (L), Dorsalis Pedis (R), Dorsalis Pedis (L) - GI/Abdominal GI/Abdominal exam: Soft, Normal bowel sounds. negative: Tenderness - Rectal Rectal exam: Deferred - exam: Deferred - Extremities Extremities exam: Normal capillary refill. negative: Tenderness - Neurological Neurological exam: Abnormal gait. negative: Motor sensory deficit, Normal gait - Psychiatric Psychiatric exam: Other (oriented to self ). negative: Anxious - Skin Skin exam: Abrasion, Normal color Hospitalization - Hospitalization Admission Diagnosis: 1. Multiple Falls and Inability to Walk with Vomiting. - Problem List/Discharge Diagnosis (1) Dementia Current Visit: No Status: Chronic Discharge Diagnosis: Dementia type: Alzheimer's disease Dementia behavioral disturbance: with behavioral disturbance Comment: 04/17/19: -Advanced dementia with increasing agitation and aggression -Cared for at home by elderly brother and , report being unable to care for patient any more due to multiple falls and worsening dementia -PCP has stopped most medications, currently only taking Xanax 0.25mg qhs for aggitation -Fall precautions in place -Patient would benefit from jose alfredo-psych admission for medicatoin adjustments, petition and cert completed -Received Haldol and Zyprexa on admission for aggression and agitation. Has not required 1:1 sitter since admission. -Added Zyprexa 2.5mg BID -Patient has been accepted to [facility] unit at [facility] (2) Risk for falls Current Visit: Yes Status: Acute Base Code: Z91.81 - HISTORY OF FALLING Comment: 04/17/19: -Fall risk due to age and dementia -Fall risk precautions in place, ambulating with walker and standby assit to bathroom (3) Hypertension Current Visit: No Status: Acute Discharge Diagnosis: Hypertension type: essential hypertension Qualified Code(s): I10 - Essential (primary) hypertension Base Code: I10 - ESSENTIAL (PRIMARY) HYPERTENSION Comment: 04/17/19: - BP controlled on Lisinopril 20mg daily and Lopressor 25mg BID (4) DVT prophylaxis Current Visit: No Status: Acute Base Code: [id number] - Comment: 04/17/19: -High risk due to age and hospitalization -No pharmacological prophylaxis due to high fall risk -Encourage ambulation within the room -SCDs ordered to be used while in bed. (5) DNR (do not resuscitate) Current Visit: Yes Status: Acute Base Code: Z66 - DO NOT RESUSCITATE Comment: 04/17/19: -DNR status this admission - Hospitalization Course Disposition: Psychiatric Hospital Hospital Course: 89 year old female patient was brought to ED by family after an evaluation in PCP's office for multiple falls. Patient reports patient has had multiple falls recently within the home. Also report that patient has been getting out of the home and fell on the stairs, resulting in a right knee abrasion. Family also reports patient had some vomiting at home recently as well. Family states patient's dementia has been progressing over the past month with growing difficulty caring for her at this time as a result. Significant medical history includes HTN, dementia, and diabetes type 2. PCP: Dr. Villasenor ED Course: Head CT: no intracranial hemorrhage or acute intracranial abnormality; extensive white matter disease; mild cerebral and cerebellar atrophy Cervical Spine CT: no evidence of acute fracture or traumatic malalignment; moderate degenerative changes CBC, CMP, troponin all unremarkable UA negative for infection EKG: no acute changes, unchanged from previous 04/15/19: Patient oriented to self only. Impulsive behavior noted, family at bedside. Patient denies chest pain, shortness of breath, nausea, abdominal pain, or diarrhea. Ambulated to bathroom with standby assist using walker. 04/17/19: Patient interactive with staff today. Up in chair for meals, talking with family. Has tolerated Zyprexa 2.5mg BID. Accepted to [facility] at [facility]; admitting physician Dr. Bush. Procedures: Imaging and X-Rays 04/14/19 14:30 CERVICAL SPINE WO CONTRAST [CT] Stat HEAD WO CONTRAST [CT] Stat 04/15/19 10:16 CHEST 1 VIEW [RAD] Stat Cardiology Procedures 04/14/19 14:34 EKG NOW Abnormal Labs: Abnormal Lab Results 04/14/19 04/14/19 04/14/19 Range/Units 14:35 14:35 15:49 MCHC 31.3 L (32-36) g/dl Lymphocytes % 13.0 L (16-45) % Sodium 135 L (136-145) mmol/L Chloride 95 L (98-107) mmol/L Anion Gap 17.0 H (7-16) BUN 7 L (8-23) mg/dL Random Glucose 186 H (74-109) mg/dL Alkaline Phosphatase 108 H (35-104) U/L Ur Leukocyte Esterase Trace H (NEGATIVE) Condition at Discharge: (2) Stable Discharge Medications - Discharge Medications Home Medications: Ambulatory Orders Isosorbide Mononitrate [Imdur] 30 mg PO DAILY 06/24/16 [Last Taken 1 Day Ago ~04/12/19] Omeprazole 20 mg PO DAILY 06/24/16 [Last Taken 1 Day Ago ~04/12/19] Simvastatin 40 mg PO QHS 06/24/16 [Last Taken 1 Day Ago ~04/12/19] Acetaminophen [Tylenol 500Mg Tab] 500 mg PO Q6H PRN 11/30/16 [Last Taken 1 Day Ago ~04/12/19] Lisinopril 20 mg PO QHS 12/22/16 [Last Taken 1 Day Ago ~04/12/19] Alprazolam 0.25 mg PO QHS tab 03/18/19 [Last Taken Unknown] Potassium Chloride [Klor-Con M20] 20 meq PO BID tab 03/18/19 [Last Taken 1 Day Ago ~04/12/19] Metoprolol Tartrate [Lopressor] 25 mg PO BID 04/13/19 [Last Taken 1 Day Ago ~04/12/19] Olanzapine 5Mg Tablet [Zyprexa] 2.5 mg PO DAILY tablet 04/17/19 [Last Taken Unknown] Olanzapine 5Mg Tablet [Zyprexa] 5 mg PO 1600 tablet 04/17/19 [Last Taken Unknown] Discharge Plan - Discharge Instructions Activity at Discharge: Increase Activity as Tolerated Diet at Discharge: Advance to Usual Diet Quality Measures - Quality Measures Quality Measures: Advance Directives, Documentation of Current Medications in Medical Record, Elder Maltreatment Screen and Follow-Up Plan, Screening for High Blood Pressure and F/U Documented - Current Medications Quality Measure: Measure #130: Documentation of Current Medications Documentation of Current Medications: <Current Medications Documented/Reviewed> [G8427] - Blood Pressure Screening Quality Measure: Screening for High Blood Pressure and Follow-Up Documented Does Patient Have Any of the Following: Active Dx of HTN Blood Pressure Classification: Normal BP Reading Systolic Measurement: 104 Diastolic Measurement: 62 Screening for High Blood Pressure: Patient Exclusion, Hx of HTN [G9744] - Advance Directives Quality Measure: Measure #47: Care Plan Advance Directives Established: No Advance Directives Information Provided To Patient: Yes Advance Directives on File: No Living Will: No 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 Dairy 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: Yes Power of Dairy 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 Name: "Jenaro" Advance Care Planning: <Care Plan/Decision Maker Documented; Discussed & Documented> [[id number]] - Elder Abuse Suspicion Index Screening: Elder Abuse Suspicion Index Screening Rely on people for bathing, dressing, shopping, banking, etc: Yes Prevented from getting food, clothes, medication, etc: No Made to feel shamed or threatened by someone: No Forced to sign papers or use money against will: No Feel afraid, touched in ways not wanted or hurt physically: No Poor eye contact, withdrawn, malnourished, cuts or bruises: No Screening Result: Negative result EASI Reference Information: Maame PADILLA, Radha C, Cesilia D, Mauro Oliva.Development and validation of a tool to assist physicians identification of elder abuse: The Elder Abuse Suspicion Index (EASI ). Journal of Elder Abuse and Neglect, 2008; 20 (3): 276-300. - Elder Maltreatment Screen Quality Measures: Elder Maltreatment Screen and Follow-Up Plan Elder Maltreatment Screen: <Negative, No Follow-Up Plan Required> [G8734]
[2019-04-17] MEDS: ALPRAZOLAM 0.25 MG TABLET PO SCH (20:12)
[2019-04-18] MEDS ORDERED: OLANZAPINE 5MG TABLET PO SCH (10:00)
== END 2019-04-17 20:40 ==
LOC: ER 14:19 → MEDSURG 16:55
PROVIDERS: ADMIT Emergency Medicine; ATTEND Internal Medicine
DX: R29.6 Repeated falls (principal); F03.90 Unspecified dementia, unspecified severity, without behavioral disturbance, psychotic disturbance, mood disturbance, and anxiety; S80.211A Abrasion, right knee, initial encounter; R26.2 Difficulty in walking, not elsewhere classified; Z91.81 History of falling; I10 Essential (primary) hypertension; E78.5 Hyperlipidemia, unspecified; E11.9 Type 2 diabetes mellitus without complications; M19.90 Unspecified osteoarthritis, unspecified site; Z66 Do not resuscitate; Z87.891 Personal history of nicotine dependence
CPT/HCPCS: 70450; 71045; 72125; 80053; 81001; 84484; 85025; 93005; 93010; 96374; 99217; 99220; 99226; 99285; J1630; J2405; J7030